=== PATIENT | female | born 1970 | race Caucasian/White ===

== ENCOUNTER 2019-06-02 16:28 | Outpatient (CLI) | END 2019-06-02 16:44 | disposition short-term general hospital (02) | LOC: AMBL 16:28 | PROVIDERS: ATTEND Emergency Medicine | DX: F41.9 Anxiety disorder, unspecified (principal); M25.511 Pain in right shoulder; M79.601 Pain in right arm ==

== ENCOUNTER 2021-07-05 17:17 | Inpatient (IN) ==
[2021-07-05] MEDS ORDERED: ZOFRAN 4 MG/2 ML IVP ONE (17:48)
[2021-07-05] MEDS ORDERED: SODIUM CHLORIDE 1,000 ML IV STA ×2 (17:48→18:45)
[2021-07-05] MEDS ORDERED: TORADOL IVP STA (17:48)
--- NOTE | 2021-07-05 17:54 | ED.PDOC ---
General ED Provider: Dr. JAY JAY OVERTON MD Chief Complaint: Nausea/Vomiting Stated Complaint: mild to mod off and on NV for 2 days, diffuse nonrad abdominal cramps, no fever, no injury, recently finished covid quarantine Time Seen by Provider: 07/05/21 17:38 Mode of Arrival: Walk-In Information Source: Patient Primary Care Provider: CHELSY SADLER MD Nursing and Triage Documentation Reviewed and Agree: Yes Does patient meet sepsis criteria?: No System Inflammatory Response Syndrome: Not Applicable Sepsis Protocol: For patient's 13 years and over: Temp is 96.8 and below OR 101 and greater Pulse >90 BPM Resp >20/minute Acutely Altered Mental Status Are patient's symptoms suggestive of a new infection, such as: -Pneumonia -Skin, Soft Tissue -Endocarditis -UTI -Bone, Joint Infection -Implantable Device -Acute Abdominal Infection -Wound Infection -Meningitis -Blood Stream Catheter Infection -Unknown Review of Systems Review Of Systems Constitutional: Reports Malaise; Denies Fever Eyes: Denies Vision change Ears, Nose, Mouth, Throat: Denies Throat pain Respiratory: Denies Cough or Short of air Cardiac: Denies Chest pain GI: Reports Abdominal pain and Vomiting : Denies Frequency Musculoskeletal: Denies Neck pain Skin: Denies Rash Neurological: Denies Cognitive dysfunction or Headache All Other Systems: Other [facility] Medical History Abscess of right axilla Anemia Anxiety Anxiety Arthritis Bilateral carpal tunnel syndrome Chronic headaches Depression Diabetes mellitus Diabetes type 2, uncontrolled Edema Hyperlipidemia Hypertension Hypertriglyceridemia Hypothyroidism Immunization refused Irritation of right eye Neuropathic pain of both feet Non-compliant patient Restless legs syndrome Sleep apnea Thyroid disorder Family History Mother Age: 73 Diabetes Cardiac disease Hyperlipidemia Hypothyroidism Hypertension BROTHER No problems noted. BROTHER Age: 52 No problems noted. 19 CHILD Age: 19 No problems noted. Social History Smoking and tobacco status: Former smoker Second hand smoke exposure: Yes Alcohol intake: never Substance use type: does not use Miladys/shinto: none Special miladys needs: No Agree to transfusion: Yes Adopted: No Caregiver/support person: No Foster care: No Household members: children Housing: house Lives independently: Yes Highest education level completed: high school graduate Financial difficulty paying for basics: not applicable service: No half-way: No Current occupational status: unemployed Current occupational exposures/hazards: No Pets and animals: Yes Leisure activites: music and reading History of recent travel: No Sexually active: No Do you think of yourself as: straight/heterosexual Current gender identity: female Seatbelt use: always Helmet use: No (N/A) Drives intoxicated or rides with intoxicated drive away driver: No Water heater temperature set < 120 degrees: Yes Working smoke detector in home: Yes Fire extinguisher in home: Yes Carbon monoxide detector in home: Yes Firearms in home: No Surgical History History of musculoskeletal system surgery History of surgery History of tubal ligation Status post cholecystectomy Status post thyroidectomy Female Reproductive History Menstrual Hx Hysterectomy: No Hx Tubal Ligation: No Physical Exam Physical Exam Appearance: Reports Well-appearing Ill-appearing: Not Applicable Pain Distress: Mild Eyes: Reports BIRD, EOMI and Conjunctiva clear ENT: Reports Oropharynx normal Neck: Supple Respiratory: Reports Airway patent, Breath sounds clear and Breath sounds equal Cardiovascular: Reports RRR GI/: Reports Soft and Tender (no rebound) Musculoskeletal: Reports Normal strength, ROM intact and No edema Skin: Reports Warm and Dry Neurological: Reports Alert and Oriented Psychiatric: Reports Affect appropriate Critical Care Note Critical Care Note Total Critical Care Time (mins): 0 Course Course Hematology/Chemistry: 07/05/21 18:20 Orders, Labs, Meds: Lab Review 07/05/21 07/05/21 07/05/21 18:20 18:20 18:40 WBC 8.18 RBC 4.23 Hgb 11.5 L Hct 37.2 MCV 87.9 MCH 27.2 MCHC 30.9 L RDW Coeff of Logan 14.9 H Plt Count 429 Immature Gran % (Auto) 1.2 Neut % (Auto) 66.5 Lymph % (Auto) 26.5 [place] % (Auto) 4.9 Eos % (Auto) 0.5 Baso % (Auto) 0.4 Neut # (Auto) 5.4 Lymph # (Auto) 2.2 [place] # (Auto) 0.4 Eos # (Auto) 0.0 Baso # (Auto) 0.0 Immature Gran # (Auto) 0.1 Lactic Acid 6.54 H Urine Color Yellow Urine Clarity Cloudy Urine pH 5.5 Ur Specific [place] 1.010 Urine Protein Negative Urine Glucose (UA) 2+ H Urine Ketones Negative Urine Blood Trace-lysed Urine Nitrite Negative Urine Bilirubin Negative Urine Urobilinogen 0.2 Ur Leukocyte Esterase Negative Urine Microscopic RBC 5-10 Urine Microscopic WBC 2-5 Ur Squamous Epith Cells 20-30 Urine Bacteria 2+ Orders Category Date Time Status EKG-(ED ONLY) Stat CARDIO 07/05/21 17:48 Completed CBC W/ AUTO DIFF Stat LAB 07/05/21 18:20 Completed COMPREHENSIVE METABOLIC PANEL Stat LAB 07/05/21 18:20 Received LACTIC ACID Stat LAB 07/05/21 18:20 Completed TROPONIN I Stat LAB 07/05/21 18:20 Received URINALYSIS C & S IF INDICATED Stat LAB 07/05/21 18:40 Completed Ketorolac Tromethamine [Toradol] MEDS 07/05/21 17:48 Discontinued 30 mg IVP ONCE STA Ondansetron HCl/Pf [Zofran 4 mg/2 ml] MEDS 07/05/21 17:48 Discontinued 4 mg IVP ONCE ONE Sodium Chloride 0.9% [Sodium Chloride] 1,000 ml MEDS 07/05/21 17:48 Discontin ued IV BOLUS Sodium Chloride 0.9% [Sodium Chloride] 1,000 ml MEDS 07/05/21 18:45 Active IV BOLUS CHEST, 1V AP ONLY Stat RADS 07/05/21 17:[address] ABDOMEN/PELVIS WO CONTRAST Stat RADS 07/05/21 17:48 Completed Medications Generic Name Dose Route Start Last Admin Trade Name Freq PRN Reason Stop Dose Admin Sodium Chloride 1,000 mls @ 1,000 mls/hr 07/05/21 18:45 Sodium Chloride IV 07/05/21 19:44 BOLUS STA Discontinued Medications Generic Name Dose Route Start Last Admin Trade Name Freq PRN Reason Stop Dose Admin Sodium Chloride 1,000 mls @ 1,000 mls/hr 07/05/21 17:48 07/05/21 18:22 Sodium Chloride IV 07/05/21 18:47 1,000 mls/hr BOLUS STA Administration Ketorolac Tromethamine 30 mg 07/05/21 17:48 07/05/21 18:22 Ketorolac Tromethamine 30 Mg/Ml Vial IVP 07/05/21 17:49 30 mg ONCE STA Administration Ondansetron HCl 4 mg 07/05/21 17:48 07/05/21 18:22 Ondansetron Hcl/Pf 4 Mg/2 Ml Sdv IVP 07/05/21 17:49 4 mg ONCE ONE Administration Vital Signs: Temp Pulse Resp BP Pulse Ox 07/05/21 17:18 96.9 F L 94 H 16 110/74 96 Discharge Plan Discharge Prescriptions: No Action (DME) blood-glucose meter Kit 1 [facility] 1-4XD Qty: 1 RF: 0 pen needle, diabetic [TRUEplus Pen Needle] 31 gauge x 3/16" needle See Rx Instructions .ROUTE .COMPLEX Qty: 100 RF: 0 ferrous sulfate 325 mg (65 mg iron) tablet See Rx Instructions .ROUTE .COMPLEX Qty: 30 RF: 0 Lantus U-100 Insulin 100 unit/mL solution See Rx Instructions .ROUTE .COMPLEX Qty: 20 RF: 0 insulin lispro [Humalog U-100 Insulin] 100 unit/mL solution See Rx Instructions .ROUTE .COMPLEX Qty: 10 RF: 3 insulin syringe-needle U-100 [BD Insulin Syringe Ultra-Fine] 1 mL 31 gauge x 5/16 syringe See Rx Instructions .ROUTE .COMPLEX Qty: 100 RF: 0 (DME) lancets 33 gauge misc 1 [facility] TID Qty: 100 RF: 0 (DME) Blood Glucose Test Strip 1 [facility] TID Qty: 120 RF: 0 gabapentin 300 mg capsule 300 mg PO BID Qty: 60 RF: 0 levothyroxine 175 mcg tablet 175 mcg PO DAILY RF: 0 atorvastatin 80 mg tablet 80 mg PO DAILY RF: 0 metformin 1,000 mg tablet 1,000 mg PO BID RF: 0 lisinopril 10 mg tablet 10 mg PO BID RF: 0 metoprolol tartrate 50 mg tablet 50 mg PO BID RF: 0 duloxetine 30 mg capsule,delayed release(DR/EC) 30 mg PO DAILY RF: 0 ibuprofen 800 mg tablet 800 mg PO Q8H Qty: 20 RF: 0 omeprazole magnesium [Prilosec OTC] 20 mg tablet,delayed release (DR/EC) 20 mg PO BID Qty: 20 RF: 0 polyethylene glycol 3350 [Miralax] 17 gram/dose powder 17 gm PO QDAY PRN (Reason: constipation) Qty: 119 RF: 0 (DME) blood-glucose meter Misc See Rx Instructions .ROUTE .MEDSUPPLY Qty: 1 RF: 0 aripiprazole [Abilify] 5 mg tablet 5 mg PO QDAY Qty: 30 RF: 1 ondansetron HCl [Zofran] 4 mg tablet 4 mg PO Q8H Qty: 20 RF: 0 ED Provider: JAY JAY OVERTON Physician Progress Note: []care to Dr Hinojosa at 19:00
--- NOTE | 2021-07-05 18:18 | CT ---
EXAM: CT of the abdomen and pelvis without contrast History: Weakness and vomiting. Comparison: CT abdomen pelvis 06/25/2021 Technique: Multiplanar CT images through the abdomen pelvis were obtained without the administration of IV contrast Findings: Bilateral lung infiltrates not significantly changed. No acute osseous abnormalities. St able chronic T12 compression fracture. Status post cholecystectomy. No liver or splenic lesions. The liver is mildly enlarged. No peripan creatic inflammation. Adrenal glands are unremarkable. No renal stones and no hydronephrosis. Prev ious appendectomy. No bowel obstruction. No free air and no ascites. No bladder wall thickening. The uterus is not enlarged. No perirectal inflammation. No lymphadenopathy. Impression: 1. No acute intra-abdominal or pelvic process. 2. Bilateral pneumonia not significantly changed compared to the prior study All CT scans are performed using dose optimization techniques as appropriate to the performed exam an d include at least one of the following: Automated exposure control, adjustment of the mA and/or kV according t o size, and the use of iterative reconstruction technique.
--- NOTE | 2021-07-05 18:18 | DI ---
EXAM: Single view of the chest. History: Weakness. Comparison: Chest radiograph 06/25/2021 Findings: Heart size is normal. Patchy bilateral lung infiltrates not significantly changed. No pl eural fluid and no pneumothorax. No acute osseous abnormalities. Impression: Bilateral pneumonia not significantly changed
[2021-07-05 18:22] LABS: BASOPHILS % (AUTO) 0.4 % (0.0-3.0); EOSINOPHILS % (AUTO) 0.5 % (0.0-7.0); HEMATOCRIT 37.2 % (37.0-47.0); HEMOGLOBIN 11.5 g/dl (12.0-16.0); IMMATURE GRANULOCYTE # (AUTO) 0.1 (0.0-1.0); IMMATURE GRANULOCYTE % (AUTO) 1.2 % (0.0-5.0); LYMPHOCYTES # (AUTO) 2.2 K/uL (0.60-3.4); LYMPHOCYTES % (AUTO) 26.5 (10.0-50.0); MEAN CORPUSCULAR HEMOGLOBIN 27.2 pg (27.0-31.0); MEAN CORPUSCULAR HGB CONC 30.9 (31.8-35.4); MEAN CORPUSCULAR VOLUME 87.9 fl (81.0-99.0); MONOCYTES # (AUTO) 0.4 K/uL (0.4-2.0); MONOCYTES % (AUTO) 4.9 (0-10); NEUTROPHILS # (AUTO) 5.4 K/ul (2.0-6.9); NEUTROPHILS % (AUTO) 66.5 % (42.2-75.2); PLATELET COUNT 429 10^3/uL (140-440); RDW COEFFICIENT OF VARIATION 14.9 % (11.6-14.8); RED BLOOD COUNT 4.23 10^6/ul (4.20-5.40); WHITE BLOOD COUNT 8.18 K/ul (4.6-10.2)
[2021-07-05 18:40] LABS: ALBUMIN 4.21 g/dL (3.5-5.0); ALKALINE PHOSPHATASE 153.1 U/L (38-126); BILIRUBIN,TOTAL 0.35 mg/dL (0.2-1.3); BLOOD UREA NITROGEN 26.1 mg/dL (7-17); CALCIUM 9.54 mg/dL (8.4-10.2); CARBON DIOXIDE 16.7 mmol/L (22-30.0); CHLORIDE 91.9 mmol/L (98-107); CREATININE 1.34 mg/dL (0.60-1.30); POTASSIUM 4.53 mmol/L (3.5-5.1); SODIUM 126.2 mmol/L (134.5-145); TOTAL PROTEIN 7.76 g/dL (6.3-8.2)
[2021-07-05 18:43] LABS: BILIRUBIN,URINE Negative (NEGATIVE); CLARITY,URINE Cloudy (CLEAR); COLOR,URINE Yellow (YELLOW); GLUCOSE, URINE (UA) 2+ (NEGATIVE); KETONES,URINE Negative (NEGATIVE); LEUKOCYTE ESTERASE ,URINE Negative (NEGATIVE); NITRITE,URINE Negative (NEGATIVE); PH,URINE 5.5 (5-9); PROTEIN,URINE Negative (NEGATIVE); URINE, BLOOD Trace-lysed (NEGATIVE); UROBILINOGEN,URINE 0.2 (0.2)
[2021-07-05 18:46] LABS: BACTERIA,URINE 2+ (NOT PRESENT); SQUAMOUS EPITHELIAL CELL,UR 20-30 (0-5)
[2021-07-05 18:47] LABS: ALANINE AMINOTRANSFERASE 20.8 U/L (0-35)
[2021-07-05 19:08] LABS: GLUCOSE 819.7 mg/dL (74-106); TROPONIN I < 0.012 ng/ml (0.0000-0.120)
[2021-07-05] MEDS ORDERED: HUMULIN R IV ONE (19:17)
[2021-07-05 19:29] LABS: BORDETELLA PARAPERTUSSIS (PCR) NOT DETECTED (NOT DETECT); BORDETELLA PERTUSSIS (PCR) NOT DETECTED (NOT DETECT); CHLAMYDIA PNEUMONIAE (PCR) NOT DETECTED (NOT DETECT); CORONAVIRUS 229E (PCR) NOT DETECTED (NOT DETECT); CORONAVIRUS HKU1 (PCR) NOT DETECTED (NOT DETECT); CORONAVIRUS NL63 (PCR) NOT DETECTED (NOT DETECT); CORONAVIRUS OC43 (PCR) NOT DETECTED (NOT DETECT); HUMAN METAPNEUMOVIRUS (PCR) NOT DETECTED (NOT DETECT); HUMAN RHINOVIRUS/ENTEROV (PCR) NOT DETECTED (NOT DETECT); INFLUENZA B (PCR) NOT DETECTED (NOT DETECT); MYCOPLASMA PNEUMONIAE (PCR) NOT DETECTED (NOT DETECT); PARAINFLUENZA VIRUS 1 (PCR) NOT DETECTED (NOT DETECT); PARAINFLUENZA VIRUS 2 (PCR) NOT DETECTED (NOT DETECT); PARAINFLUENZA VIRUS 3 (PCR) NOT DETECTED (NOT DETECT); PARAINFLUENZA VIRUS 4 (PCR) NOT DETECTED (NOT DETECT); RESPIRATORY SYNCYTIAL V (PCR) NOT DETECTED (NOT DETECT)
[2021-07-05 20:11] LABS: ADENOVIRUS (PCR) NOT DETECTED (NOT DETECT); SARS_COV_2 (PCR) DETECTED (NOT DETECT)
[2021-07-05 20:46] LABS: BLOOD UREA NITROGEN 25.8 mg/dL (7-17); CALCIUM 10.01 mg/dL (8.4-10.2); CARBON DIOXIDE 19.2 mmol/L (22-30.0); CREATININE 1.25 mg/dL (0.60-1.30); GLUCOSE 485.9 mg/dL (74-106); POTASSIUM 4.23 mmol/L (3.5-5.1); SODIUM 131.8 mmol/L (134.5-145)
[2021-07-05] MEDS ORDERED: HUMULIN R IVP STA (21:00)
--- NOTE | 2021-07-05 21:58 | ED.PDOC ---
General ED Provider: Dr. PILLO CABELLO Chief Complaint: Nausea/Vomiting Stated Complaint: Nausea and vomiting, crampy pain, ill a few days, diabetic, out of insulin, recovering from COVID (day 10) Time Seen by Provider: 07/05/21 17:38 Mode of Arrival: Walk-In Information Source: Patient Exam Limitations: No limitations Primary Care Provider: CHELSY SADLER MD Nursing and Triage Documentation Reviewed and Agree: Yes Does patient meet sepsis criteria?: No System Inflammatory Response Syndrome: Not Applicable Sepsis Protocol: For patient's 13 years and over: Temp is 96.8 and below OR 101 and greater Pulse >90 BPM Resp >20/minute Acutely Altered Mental Status Are patient's symptoms suggestive of a new infection, such as: -Pneumonia -Skin, Soft Tissue -Endocarditis -UTI -Bone, Joint Infection -Implantable Device -Acute Abdominal Infection -Wound Infection -Meningitis -Blood Stream Catheter Infection -Unknown GI Complaint Exam Vomiting/Diarrhea Complaint/Exam Onset/Duration: Few days, diabetic, out of insulin, COVID sx for 2 weeks, day 10 today Symptoms Are: Still present Episodes of Vomiting over last 24 Hours: 10 Episodes of Diarrhea Over Last 24 Hours: 0 Initial Severity: Moderate Current Severity: Moderate Character of Vomiting: Reports Non-bilious Aggravating: Reports Food Alleviating: Reports None Associated Signs and Symptoms: Reports Light-headedness and Cramping; Denies Dizziness, Melena, Hematemesis, Fever or Abdominal pain Related History: Denies Recent antibiotics Last Oral Intake: tried today Last Bowel Movement: today Recent Positive Test: No Non-GI Risk Factors: Reports None Surgical Obstruction Risk Factors: Reports None Related Surgical History: Reports Cholecystectomy Abdominal Findings: Present Other (generalized cramping) Kussmaul Respirations Present: No Differential Diagnoses: Viral Gastroenteritis, Pancreatitis and Other (uncontrolled diabetes) Review of Systems Review Of Systems Constitutional: Reports Malaise, Weakness and Loss of appetite Eyes: Reports No symptoms Ears, Nose, Mouth, Throat: Reports No symptoms Respiratory: Reports Cough Cardiac: Reports No symptoms GI: Reports Nausea, Poor appetite and Vomiting : Reports No symptoms Musculoskeletal: Reports No symptoms Skin: Reports No symptoms Neurological: Reports No symptoms Endocrine: Reports No symptoms Hematologic/Lymphatic: Reports No symptoms All Other Systems: Reviewed and Negative [facility] Medical History Abscess of right axilla Anemia Anxiety Anxiety Arthritis Bilateral carpal tunnel syndrome Chronic headaches Depression Diabetes mellitus Diabetes type 2, uncontrolled Edema Hyperlipidemia Hypertension Hypertriglyceridemia Hypothyroidism Immunization refused Irritation of right eye Neuropathic pain of both feet Non-compliant patient Restless legs syndrome Sleep apnea Thyroid disorder Family History (Updated 07/05/21 @ 22:20 by BROOKE ROCHA RN) Mother Age: 73 Diabetes Cardiac disease Hyperlipidemia Hypothyroidism Hypertension COVID-19 BROTHER No problems noted. BROTHER Age: 52 No problems noted. 19 CHILD Age: 19 No problems noted. Social History Smoking and tobacco status: Former smoker Second hand smoke exposure: Yes Alcohol intake: never Substance use type: does not use Miladys/restorationism: none Special miladys needs: No Agree to transfusion: Yes Adopted: No Caregiver/support person: No Foster care: No Household members: children Housing: house Lives independently: Yes Highest education level completed: high school graduate Financial difficulty paying for basics: not applicable service: No custodial: No Current occupational status: unemployed Current occupational exposures/hazards: No Pets and animals: Yes Leisure activites: music and reading History of recent travel: No Sexually active: No Do you think of yourself as: straight/heterosexual Current gender identity: female Seatbelt use: always Helmet use: No (N/A) Drives intoxicated or rides with intoxicated backhaul driver: No Water heater temperature set < 120 degrees: Yes Working smoke detector in home: Yes Fire extinguisher in home: Yes Carbon monoxide detector in home: Yes Firearms in home: No Surgical History History of musculoskeletal system surgery History of surgery History of tubal ligation Status post cholecystectomy Status post thyroidectomy Female Reproductive History Menstrual Hx Hysterectomy: No Hx Tubal Ligation: No Physical Exam Physical Exam Appearance: Reports Ill-appearing and Obese Ill-appearing: Moderate Pain Distress: None Eyes: Reports BIRD ENT: Reports Oropharynx normal Neck: Supple Respiratory: Reports Airway patent, Breath sounds clear and Breath sounds equal Cardiovascular: Reports RRR and Pulses normal GI/: Reports Soft, Bowel sounds normal and Other (generalized cramping); Denies Tender or Mass Musculoskeletal: Reports Normal strength and Other (partial amputation right foot) Skin: Reports Warm and Dry Neurological: Reports Sensation intact, Motor intact and Alert Psychiatric: Reports Affect appropriate and Mood appropriate Interpretation Radiology Interpretation Radiology Interpretation By: Radiologist Radiology Results: Positive Exam Interpreted: CXR Xray Comments: COVID pneumonia, previously documented Radiology Interpretation By: Radiologist Exam Interpreted: CT Scan Xray Comments: CT A/P - no acute findings, COVID pneumonia noted Physician Notification Case Discussed Physician Notified: Dr. Gannon Time of Notification: 21:00 Comments: This patient has been discharged from his practice due to noncompliance. Critical Care Note Critical Care Note Total Critical Care Time (mins): 30 Comments: Uncontrolled blood sugar and dehydration causing acute kidney injury. Course Course Hematology/Chemistry: 07/05/21 18:20 07/05/21 20:29 Orders, Labs, Meds: Lab Review 07/05/21 07/05/21 07/05/21 18:20 18:20 18:20 WBC 8.18 RBC 4.23 Hgb 11.5 L Hct 37.2 MCV 87.9 MCH 27.2 MCHC 30.9 L RDW Coeff of Logan 14.9 H Plt Count 429 Immature Gran % (Auto) 1.2 Neut % (Auto) 66.5 Lymph % (Auto) 26.5 [place] % (Auto) 4.9 Eos % (Auto) 0.5 Baso % (Auto) 0.4 Neut # (Auto) 5.4 Lymph # (Auto) 2.2 [place] # (Auto) 0.4 Eos # (Auto) 0.0 Baso # (Auto) 0.0 Immature Gran # (Auto) 0.1 Sodium 126.2 L Potassium 4.53 Chloride 91.9 L Carbon Dioxide 16.7 L Anion Gap 22.13 BUN 26.1 H Creatinine 1.34 H Estimated GFR (MDRD) 42.00 BUN/Creatinine Ratio 19.47 Glucose 819.7 H* Lactic Acid 6.54 H Calcium 9.54 Total Bilirubin 0.35 AST 35.0 ALT 20.8 Alkaline Phosphatase 153.1 H Troponin I < 0.012 Total Protein 7.76 Albumin 4.21 Globulin 3.55 Albumin/Globulin Ratio 1.18 Urine Color Urine Clarity Urine pH Ur Specific [place] Urine Protein Urine Glucose (UA) Urine Ketones Urine Blood Urine Nitrite Urine Bilirubin Urine Urobilinogen Ur Leukocyte Esterase Urine Microscopic RBC Urine Microscopic WBC Ur Squamous Epith Cells Urine Bacteria Adenovirus (PCR) B. pertussis DNA (PCR) B.parapertussis DNA PCR C. pneumoniae DNA (PCR) Coronavirus OC43 (PCR) Coronavirus HKU1 (PCR) Coronavirus 229E (PCR) Coronavirus NL63 (PCR) Human Metapneumovir PCR Influenza Type A (PCR) Influenza B (RT-PCR) M. pneumoniae (PCR) Parainfluenza 1 (PCR) Parainfluenza 2 (PCR) Parainfluenza 3 (PCR) Parainfluenza 4 (PCR) RSV (PCR) Entero/Rhino (PCR) SARS-CoV-2 (PCR) 07/05/21 07/05/21 07/05/21 18:40 19:20 20:29 WBC RBC Hgb Hct MCV MCH MCHC RDW Coeff of Logan Plt Count Immature Gran % (Auto) Neut % (Auto) Lymph % (Auto) [place] % (Auto) Eos % (Auto) Baso % (Auto) Neut # (Auto) Lymph # (Auto) [place] # (Auto) Eos # (Auto) Baso # (Auto) Immature Gran # (Auto) Sodium 131.8 L Potassium 4.23 Chloride 98.0 Carbon Dioxide 19.2 L Anion Gap 18.83 BUN 25.8 H Creatinine 1.25 Estimated GFR (MDRD) 45.00 BUN/Creatinine Ratio 20.64 Glucose 485.9 H D Lactic Acid Calcium 10.01 Total Bilirubin AST ALT Alkaline Phosphatase Troponin I Total Protein Albumin Globulin Albumin/Globulin Ratio Urine Color Yellow Urine Clarity Cloudy Urine pH 5.5 Ur Specific [place] 1.010 Urine Protein Negative Urine Glucose (UA) 2+ H Urine Ketones Negative Urine Blood Trace-lysed Urine Nitrite Negative Urine Bilirubin Negative Urine Urobilinogen 0.2 Ur Leukocyte Esterase Negative Urine Microscopic RBC 5-10 Urine Microscopic WBC 2-5 Ur Squamous Epith Cells 20-30 Urine Bacteria 2+ Adenovirus (PCR) Not detected B. pertussis DNA (PCR) Not detected B.parapertussis DNA PCR Not detected C. pneumoniae DNA (PCR) Not detected Coronavirus OC43 (PCR) Not detected Coronavirus HKU1 (PCR) Not detected Coronavirus 229E (PCR) Not detected Coronavirus NL63 (PCR) Not detected Human Metapneumovir PCR Not detected Influenza Type A (PCR) Not detected Influenza B (RT-PCR) Not detected M. pneumoniae (PCR) Not detected Parainfluenza 1 (PCR) Not detected Parainfluenza 2 (PCR) Not detected Parainfluenza 3 (PCR) Not detected Parainfluenza 4 (PCR) Not detected RSV (PCR) Not detected Entero/Rhino (PCR) Not detected SARS-CoV-2 (PCR) Detected H 07/05/21 20:29 WBC RBC Hgb Hct MCV MCH MCHC RDW Coeff of [place] Plt Count Immature Gran % (Auto) Neut % (Auto) Lymph % (Auto) [place] % (Auto) Eos % (Auto) Baso % (Auto) Neut # (Auto) Lymph # (Auto) [place] # (Auto) Eos # (Auto) Baso # (Auto) Immature Gran # (Auto) Sodium Potassium Chloride Carbon Dioxide Anion Gap BUN Creatinine Estimated GFR (MDRD) BUN/Creatinine Ratio Glucose Lactic Acid 4.19 H D Calcium Total Bilirubin AST ALT Alkaline Phosphatase Troponin I Total Protein Albumin Globulin Albumin/Globulin Ratio Urine Color Urine Clarity Urine pH Ur Specific [place] Urine Protein Urine Glucose (UA) Urine Ketones Urine Blood Urine Nitrite Urine Bilirubin Urine Urobilinogen Ur Leukocyte Esterase Urine Microscopic RBC Urine Microscopic WBC Ur Squamous Epith Cells Urine Bacteria Adenovirus (PCR) B. pertussis DNA (PCR) B.parapertussis DNA PCR C. pneumoniae DNA (PCR) Coronavirus OC43 (PCR) Coronavirus HKU1 (PCR) Coronavirus 229E (PCR) Coronavirus NL63 (PCR) Human Metapneumovir PCR Influenza Type A (PCR) Influenza B (RT-PCR) M. pneumoniae (PCR) Parainfluenza 1 (PCR) Parainfluenza 2 (PCR) Parainfluenza 3 (PCR) Parainfluenza 4 (PCR) RSV (PCR) Entero/Rhino (PCR) SARS-CoV-2 (PCR) Orders Category Date Time Status ADMIT PATIENT INPATIENT .TO MEDSURG (NON-MONITORED ADMISSION 07/05/21 21:05 Active BED) EKG-(ED ONLY) Stat CARDIO 07/05/21 17:48 Completed BASIC METABOLIC PANEL Stat LAB 07/05/21 20:29 Completed CBC W/ AUTO DIFF Stat LAB 07/05/21 18:20 Completed COMPREHENSIVE METABOLIC PANEL Stat LAB 07/05/21 18:20 Completed LACTIC ACID Stat LAB 07/05/21 18:20 Completed LACTIC ACID Stat LAB 07/05/21 20:29 Completed RESPIRATORY PANEL 2.1 (PCR) Stat LAB 07/05/21 19:20 Completed TROPONIN I Stat LAB 07/05/21 18:20 Completed URINALYSIS C & S IF INDICATED Stat LAB 07/05/21 18:40 Completed URINE CULTURE Stat LAB 07/05/21 18:40 Received Insulin Regular, Human [Humulin R] MEDS 07/05/21 19:17 Discontinued 20 unit IV ONCE ONE Insulin Regular, Human [Humulin R] MEDS 07/05/21 21:00 Discontinued 20 unit IVP ONCE STA Ketorolac Tromethamine [Toradol] MEDS 07/05/21 17:48 Discontinued 30 mg IVP ONCE STA Ondansetron HCl/Pf [Zofran 4 mg/2 ml] MEDS 07/05/21 17:48 Discontinued 4 mg IVP ONCE ONE Sodium Chloride 0.9% [Sodium Chloride] 1,000 ml MEDS 07/05/21 17:48 Discontinued IV BOLUS Sodium Chloride 0.9% [Sodium Chloride] 1,000 ml MEDS 07/05/21 18:45 Discontinued IV BOLUS CHEST, 1V AP ONLY Stat RADS 07/05/21 17:[address] ABDOMEN/PELVIS WO CONTRAST Stat RADS 07/05/21 17:48 Completed Medications Generic Name Dose Route Start Last Admin Trade Name Freq PRN Reason Stop Dose Admin Aripiprazole 5 mg 07/05/21 21:30 07/05/21 22:15 Aripiprazole 5 Mg Tablet PO 5 mg DAILY [facility] Administration Atorvastatin Calcium 80 mg 07/06/21 09:00 Atorvastatin Calcium 20 Mg Tablet PO DAILY DARYA Duloxetine HCl 30 mg 07/06/21 09:00 Duloxetine Hcl 30 Mg Capsule.Dr PO DAILY [facility] Enoxaparin Sodium 40 mg 07/06/21 09:00 Enoxaparin Sodium 40 Mg/0.4 Ml Syr SUBCUT DAILY [facility] Gabapentin 300 mg 07/06/21 09:00 Gabapentin 300 Mg Capsule PO BID [facility] Sodium Chloride 1,000 mls @ 150 mls/hr 07/05/21 21:30 07/05/21 22:14 Sodium Chloride IV 150 mls/hr .[id number] [facility] Administration Insulin Glargine 40 unit 07/06/21 09:00 Insulin Glargine,Hum.Rec.Anlog 100 Units/Ml SUBCUT DAILY [facility] Insulin Human Regular 0 unit 07/05/21 21:53 07/05/21 22:15 Insulin Regular, Human 100 Unit/Ml (3ml) Vial SUBCUT 6 unit PRN PRN Administration Hyperglycemia Protocol Levothyroxine Sodium 100 mcg 07/06/21 09:00 Levothyroxine Sodium 100 Mcg Tablet PO QAM DARYA Levothyroxine Sodium 75 mcg 07/06/21 09:00 Levothyroxine Sodium 75 Mcg Tablet PO QAM DARYA Lisinopril 10 mg 07/06/21 09:00 Lisinopril 10 Mg Tablet PO BID DARYA Metoprolol Tartrate 50 mg 07/06/21 09:00 Metoprolol Tartrate 50 Mg Tablet PO BID DARYA Omeprazole 20 mg 07/06/21 09:00 Omeprazole 20 Mg Capsule.Dr PO BID DARYA Discontinued Medications Generic Name Dose Route Start Last Admin Trade Name Freq PRN Reason Stop Dose Admin Sodium Chloride 1,000 mls @ 1,000 mls/hr 07/05/21 17:48 07/05/21 18:22 Sodium Chloride IV 07/05/21 18:47 1,000 mls/hr BOLUS STA Administration Sodium Chloride 1,000 mls @ 1,000 mls/hr 07/05/21 18:45 07/05/21 19:28 Sodium Chloride IV 07/05/21 19:44 1,000 mls/hr BOLUS STA Administration Insulin Human Regular 20 unit 07/05/21 19:17 07/05/21 19:28 Insulin Regular, Human 100 Unit/Ml (3ml) Vial IV 07/05/21 19:18 20 unit ONCE ONE Administration Insulin Human Regular 20 unit 07/05/21 21:00 07/05/21 21:04 Insulin Regular, Human 100 Unit/Ml (3ml) Vial IVP 07/05/21 21:01 20 unit ONCE STA Administration Ketorolac Tromethamine 30 mg 07/05/21 17:48 07/05/21 18:22 Ketorolac Tromethamine 30 Mg/Ml Vial IVP 07/05/21 17:49 30 mg ONCE STA Administration Non-Formulary Medication 175 mcg 07/06/21 09:00 Levothyroxine PO DAILY DARYA Ondansetron HCl 4 mg 07/05/21 17:48 07/05/21 18:22 Ondansetron Hcl/Pf 4 Mg/2 Ml Sdv IVP 07/05/21 17:49 4 mg ONCE ONE Administration Vital Signs: Temp Pulse Resp BP Pulse Ox 07/05/21 19:31 78 20 153/90 H 99 07/05/21 17:18 96.9 F L 94 H 16 110/74 96 Discharge Plan Discharge Patient Disposition: ADMITTED INPATIENT Discharge Problem: Diabetes mellitus, Hypertriglyceridemia ED Provider: PILLO CABELLO Condition: Stable Physician Progress Note: Blood sugar gradually lowered with IV insulin and IVF. Volume depletion noted, this caused the elevated lactate level and the LEWIS (not severe). Still some COVID pneumonia on CXR, but she is out of the quarantine phase, oxygen sat 99 % RA. Blood sugar and lactate both decreasing, admit. She says she will see Dr. Dunaway after d/c.[]
[2021-07-05] MEDS: SODIUM CHLORIDE 1,000 ML IV SCH (22:14)
[2021-07-05] MEDS: HUMULIN R SUBCUT PRN (22:15)
[2021-07-05] MEDS: ABILIFY PO SCH (22:15)
[2021-07-05 22:17] VITALS: BMI 37.5
[2021-07-05 22:26] LABS: BILIRUBIN,URINE Negative (NEGATIVE); CLARITY,URINE Clear (CLEAR); COLOR,URINE Yellow (YELLOW); GLUCOSE, URINE (UA) 2+ (NEGATIVE); KETONES,URINE Negative (NEGATIVE); LEUKOCYTE ESTERASE ,URINE Negative (NEGATIVE); NITRITE,URINE Negative (NEGATIVE); PROTEIN,URINE Negative (NEGATIVE); URINE, BLOOD Trace-intact (NEGATIVE); UROBILINOGEN,URINE 0.2 (0.2)
[2021-07-05 22:33] LABS: BACTERIA,URINE TRACE (NOT PRESENT); YEAST,URINE TRACE (NOT PRESENT)
[2021-07-06] MEDS: SODIUM CHLORIDE 1,000 ML IV SCH ×4 (04:49→22:41)
[2021-07-06] MEDS: HUMULIN R SUBCUT PRN ×4 (05:31→20:43)
[2021-07-06 05:34] LABS: BLOOD UREA NITROGEN 23.6 mg/dL (7-17); CALCIUM 9.11 mg/dL (8.4-10.2); CARBON DIOXIDE 24.3 mmol/L (22-30.0); CHLORIDE 102.7 mmol/L (98-107); CREATININE 1.14 mg/dL (0.60-1.30); POTASSIUM 4.04 mmol/L (3.5-5.1); SODIUM 135.1 mmol/L (134.5-145)
[2021-07-06] MEDS ORDERED: CYMBALTA PO SCH (09:00)
[2021-07-06] MEDS ORDERED: LANTUS SUBCUT SCH (09:00)
[2021-07-06] MEDS ORDERED: SYNTHROID PO SCH ×2 (09:00)
[2021-07-06] MEDS ORDERED: LOVENOX SUBCUT SCH (09:00)
[2021-07-06] MEDS ORDERED: LEVOTHYROXINE 175 MCG PO SCH (09:00)
[2021-07-06] MEDS ORDERED: LIPITOR PO SCH (09:00)
[2021-07-06] MEDS: NEURONTIN PO SCH ×2 (09:53→20:43)
[2021-07-06] MEDS: ABILIFY PO SCH (09:53)
[2021-07-06] MEDS: LOPRESSOR PO SCH ×2 (09:54→20:43)
[2021-07-06] MEDS: PRILOSEC PO SCH ×2 (09:56→20:43)
[2021-07-06] MEDS: ZESTRIL PO SCH ×2 (09:56→20:43)
--- NOTE | 2021-07-06 12:09 | PCM ---
Chief Complaint Chief Complaint: Weakness, cough, congestion and pos COVID 19 Infection History of Present Illness History of Present Illness: Hx Type II DM, poor controls and compliance issues. Has prev been on Lantus 70 u daily plus SS humulin Hs Restless Leg Syndrome with partial amputation Rt Foot.Hypothyroidism, hyperlipidemia peripheral neuropathy Allergies Allergies Allergy/AdvReac Type Severity Reaction Status Date / Time No Known Allergies Allergy Verified 07/05/21 17:28 [facility] Medical History Abscess of right axilla Anemia Anxiety Anxiety Arthritis Bilateral carpal tunnel syndrome Chronic headaches Depression Diabetes mellitus Diabetes type 2, uncontrolled Edema Hyperlipidemia Hypertension Hypertriglyceridemia Hypothyroidism Immunization refused Irritation of right eye Neuropathic pain of both feet Non-compliant patient Restless legs syndrome Sleep apnea Thyroid disorder Surgical History History of musculoskeletal system surgery History of surgery History of tubal ligation Status post cholecystectomy Status post thyroidectomy Family History (Updated 07/05/21 @ 22:20 by BROOKE ROCHA RN) Mother Age: 73 Diabetes Cardiac disease Hyperlipidemia Hypothyroidism Hypertension COVID-19 BROTHER No problems noted. BROTHER Age: 52 No problems noted. 19 CHILD Age: 19 No problems noted. Social History Smoking and tobacco status: Former smoker Second hand smoke exposure: Yes Alcohol intake: never Substance use type: does not use Miladys/lutheran: none Special miladys needs: No Agree to transfusion: Yes Adopted: No Caregiver/support person: No Foster care: No Household members: children Housing: house Lives independently: Yes Highest education level completed: high school graduate Financial difficulty paying for basics: not applicable service: No longterm: No Current occupational status: unemployed Current occupational exposures/hazards: No Pets and animals: Yes Leisure activites: music and reading History of recent travel: No Sexually active: No Do you think of yourself as: straight/heterosexual Current gender identity: female Seatbelt use: always Helmet use: No (N/A) Drives intoxicated or rides with intoxicated backhaul driver: No Water heater temperature set < 120 degrees: Yes Working smoke detector in home: Yes Fire extinguisher in home: Yes Carbon monoxide detector in home: Yes Firearms in home: No Medications Medications: Medications Generic Name Dose Route Start Last Admin Trade Name Frepatric PRN Reason Stop Dose Admin Aripiprazole 5 mg 07/05/21 21:30 07/06/21 09:53 Aripiprazole 5 Mg Tablet PO 5 mg DAILY DARYA Administration Atorvastatin Calcium 80 mg 07/06/21 09:00 10 09:53 Atorvastatin Calcium 20 Mg Tablet PO 80 mg DAILY DARYA Administration Duloxetine HCl 30 mg 07/06/21 09:00 07/06/21 09:54 Duloxetine Hcl 30 Mg Capsule. PO 30 mg DAILY DARYA Administration Enoxaparin Sodium 40 mg 07/06/21 09:00 07/06/21 09:52 Enoxaparin Sodium 40 Mg/0.4 Ml Syr SUBCUT 40 mg DAILY DARYA Administration Gabapentin 300 mg 07/06/21 09:00 07/06/21 09:53 Gabapentin 300 Mg Capsule PO 300 mg BID DARYA Administration Sodium Chloride 1,000 mls @ 150 mls/hr 07/05/21 21:30 07/06/21 11:13 Sodium Chloride IV 150 mls/hr .Q6H40M DARYA Administration Insulin Glargine 40 unit 07/06/21 09:00 07/06/21 09:52 Insulin Glargine,Hum.Rec.Anlog 100 Units/Ml SUBCUT 40 unit DAILY DARYA Administration Insulin Human Regular 0 unit 07/05/21 21:53 07/06/21 11:13 Insulin Regular, Human 100 Unit/Ml (3ml) Vial SUBCUT 8 unit PRN PRN Administration Hyperglycemia Protocol Levothyroxine Sodium 100 mcg 07/06/21 09:00 07/06/21 09:54 Levothyroxine Sodium 100 Mcg Tablet PO 100 mcg QAM DARYA Administration Levothyroxine Sodium 75 mcg 07/06/21 09:00 07/06/21 09:53 Levothyroxine Sodium 75 Mcg Tablet PO 75 mcg QAM DARYA Administration Lisinopril 10 mg 07/06/21 09:00 07/06/21 09:56 Lisinopril 10 Mg Tablet PO 10 mg BID DARYA Administration Metoprolol Tartrate 50 mg 07/06/21 09:00 07/06/21 09:54 Metoprolol Tartrate 50 Mg Tablet PO 50 mg BID DARYA Administration Omeprazole 20 mg 07/06/21 09:00 07/06/21 09:56 Omeprazole 20 Mg Capsule. PO 20 mg BID DARYA Administration Body Composition Height: 5 ft 4 in Weight: 218 lb 7 oz Body Mass Index (BMI): 37.5 Vital Signs Temperature: 98 F Pulse Rate: 71 Respiratory Rate: 13 Blood Pressure: 126/75 O2 Sat by Pulse Oximetry: 100 Physical Examination Appearance: Reports Ill-appearing and Obese Ill-appearing: Mild Pain Distress: Mild Eyes: Reports BIRD, EOMI and Conjunctiva clear ENT: Reports Ears normal and Nose normal Neck: Supple Respiratory: Reports Airway patent, Breath sounds clear and Breath sounds equal Cardiovascular: Reports RRR and Pulses normal GI/: Reports Soft, Nontender, No masses and Bowel sounds normal Musculoskeletal: Reports Normal strength and ROM intact Skin: Reports Warm, Dry and Normal color Neurological: Reports Motor intact, Cranial nerves intact, Alert and Oriented Psychiatric: Reports Affect appropriate, Mood appropriate and Anxious Lab/Tests/Diagnostic Imaging Lab/Tests/Diagnostic Imaging: Lab Review 07/05/21 07/05/21 07/05/21 18:20 18:20 18:20 WBC 8.18 RBC 4.23 Hgb 11.5 L Hct 37.2 MCV 87.9 MCH 27.2 MCHC 30.9 L RDW Coeff of Logan 14.9 H Plt Count 429 Immature Gran % (Auto) 1.2 Neut % (Auto) 66.5 Lymph % (Auto) 26.5 [place] % (Auto) 4.9 Eos % (Auto) 0.5 Baso % (Auto) 0.4 Neut # (Auto) 5.4 Lymph # (Auto) 2.2 [place] # (Auto) 0.4 Eos # (Auto) 0.0 Baso # (Auto) 0.0 Immature Gran # (Auto) 0.1 Sodium 126.2 L Potassium 4.53 Chloride 91.9 L Carbon Dioxide 16.7 L Anion Gap 22.13 BUN 26.1 H Creatinine 1.34 H Estimated GFR (MDRD) 42.00 BUN/Creatinine Ratio 19.47 Glucose 819.7 H* Lactic Acid 6.54 H Calcium 9.54 Total Bilirubin 0.35 AST 35.0 ALT 20.8 Alkaline Phosphatase 153.1 H Troponin I < 0.012 Total Protein 7.76 Albumin 4.21 Globulin 3.55 Albumin/Globulin Ratio 1.18 Urine Color Urine Clarity Urine pH Ur Specific [place] Urine Protein Urine Glucose (UA) Urine Ketones Urine Blood Urine Nitrite Urine Bilirubin Urine Urobilinogen Ur Leukocyte Esterase Urine Microscopic RBC Urine Microscopic WBC Ur Squamous Epith Cells Urine Bacteria Urine Yeast Adenovirus (PCR) B. pertussis DNA (PCR) B.parapertussis DNA PCR C. pneumoniae DNA (PCR) Coronavirus OC43 (PCR) Coronavirus HKU1 (PCR) Coronavirus 229E (PCR) Coronavirus NL63 (PCR) Human Metapneumovir PCR Influenza Type A (PCR) Influenza B (RT-PCR) M. pneumoniae (PCR) Parainfluenza 1 (PCR) Parainfluenza 2 (PCR) Parainfluenza 3 (PCR) Parainfluenza 4 (PCR) RSV (PCR) Entero/Rhino (PCR) SARS-CoV-2 (PCR) 07/05/21 07/05/21 07/05/21 18:40 19:20 20:29 WBC RBC Hgb Hct MCV MCH MCHC RDW Coeff of Logan Plt Count Immature Gran % (Auto) Neut % (Auto) Lymph % (Auto) [place] % (Auto) Eos % (Auto) Baso % (Auto) Neut # (Auto) Lymph # (Auto) [place] # (Auto) Eos # (Auto) Baso # (Auto) Immature Gran # (Auto) Sodium 131.8 L Potassium 4.23 Chloride 98.0 Carbon Dioxide 19.2 L Anion Gap 18.83 BUN 25.8 H Creatinine 1.25 Estimated GFR (MDRD) 45.00 BUN/Creatinine Ratio 20.64 Glucose 485.9 H D Lactic Acid Calcium 10.01 Total Bilirubin AST ALT Alkaline Phosphatase Troponin I Total Protein Albumin Globulin Albumin/Globulin Ratio Urine Color Yellow Urine Clarity Cloudy Urine pH 5.5 Ur Specific [place] 1.010 Urine Protein Negative Urine Glucose (UA) 2+ H Urine Ketones Negative Urine Blood Trace-lysed Urine Nitrite Negative Urine Bilirubin Negative Urine Urobilinogen 0.2 Ur Leukocyte Esterase Negative Urine Microscopic RBC 5-10 Urine Microscopic WBC 2-5 Ur Squamous Epith Cells 20-30 Urine Bacteria 2+ Urine Yeast Adenovirus (PCR) Not detected B. pertussis DNA (PCR) Not detected B.parapertussis DNA PCR Not detected C. pneumoniae DNA (PCR) Not detected Coronavirus OC43 (PCR) Not detected Coronavirus HKU1 (PCR) Not detected Coronavirus 229E (PCR) Not detected Coronavirus NL63 (PCR) Not detected Human Metapneumovir PCR Not detected Influenza Type A (PCR) Not detected Influenza B (RT-PCR) Not detected M. pneumoniae (PCR) Not detected Parainfluenza 1 (PCR) Not detected Parainfluenza 2 (PCR) Not detected Parainfluenza 3 (PCR) Not detected Parainfluenza 4 (PCR) Not detected RSV (PCR) Not detected Entero/Rhino (PCR) Not detected SARS-CoV-2 (PCR) Detected H 07/05/21 07/05/21 07/06/21 20:29 22:15 05:15 WBC RBC Hgb Hct MCV MCH MCHC RDW Coeff of Logan Plt Count Immature Gran % (Auto) Neut % (Auto) Lymph % (Auto) [place] % (Auto) Eos % (Auto) Baso % (Auto) Neut # (Auto) Lymph # (Auto) [place] # (Auto) Eos # (Auto) Baso # (Auto) Immature Gran # (Auto) Sodium 135.1 Potassium 4.04 Chloride 102.7 Carbon Dioxide 24.3 Anion Gap 12.14 BUN 23.6 H Creatinine 1.14 Estimated GFR (MDRD) 50.00 BUN/Creatinine Ratio 20.70 Glucose 309.0 H D Lactic Acid 4.19 H D Calcium 9.11 Total Bilirubin AST ALT Alkaline Phosphatase Troponin I Total Protein Albumin Globulin Albumin/Globulin Ratio Urine Color Yellow Urine Clarity Clear Urine pH 5.0 Ur Specific [place] 1.010 Urine Protein Negative Urine Glucose (UA) 2+ H Urine Ketones Negative Urine Blood Trace-intact H Urine Nitrite Negative Urine Bilirubin Negative Urine Urobilinogen 0.2 Ur Leukocyte Esterase Negative Urine Microscopic RBC 2-5 Urine Microscopic WBC Ur Squamous Epith Cells 10-20 Urine Bacteria Trace Urine Yeast Trace Adenovirus (PCR) B. pertussis DNA (PCR) B.parapertussis DNA PCR C. pneumoniae DNA (PCR) Coronavirus OC43 (PCR) Coronavirus HKU1 (PCR) Coronavirus 229E (PCR) Coronavirus NL63 (PCR) Human Metapneumovir PCR Influenza Type A (PCR) Influenza B (RT-PCR) M. pneumoniae (PCR) Parainfluenza 1 (PCR) Parainfluenza 2 (PCR) Parainfluenza 3 (PCR) Parainfluenza 4 (PCR) RSV (PCR) Entero/Rhino (PCR) SARS-CoV-2 (PCR) 07/06/21 05:15 WBC RBC Hgb Hct MCV MCH MCHC RDW Coeff of Logan Plt Count Immature Gran % (Auto) Neut % (Auto) Lymph % (Auto) [place] % (Auto) Eos % (Auto) Baso % (Auto) Neut # (Auto) Lymph # (Auto) [place] # (Auto) Eos # (Auto) Baso # (Auto) Immature Gran # (Auto) Sodium Potassium Chloride Carbon Dioxide Anion Gap BUN Creatinine Estimated GFR (MDRD) BUN/Creatinine Ratio Glucose Lactic Acid 1.34 D Calcium Total Bilirubin AST ALT Alkaline Phosphatase Troponin I Total Protein Albumin Globulin Albumin/Globulin Ratio Urine Color Urine Clarity Urine pH Ur Specific [place] Urine Protein Urine Glucose (UA) Urine Ketones Urine Blood Urine Nitrite Urine Bilirubin Urine Urobilinogen Ur Leukocyte Esterase Urine Microscopic RBC Urine Microscopic WBC Ur Squamous Epith Cells Urine Bacteria Urine Yeast Adenovirus (PCR) B. pertussis DNA (PCR) B.parapertussis DNA PCR C. pneumoniae DNA (PCR) Coronavirus OC43 (PCR) Coronavirus HKU1 (PCR) Coronavirus 229E (PCR) Coronavirus NL63 (PCR) Human Metapneumovir PCR Influenza Type A (PCR) Influenza B (RT-PCR) M. pneumoniae (PCR) Parainfluenza 1 (PCR) Parainfluenza 2 (PCR) Parainfluenza 3 (PCR) Parainfluenza 4 (PCR) RSV (PCR) Entero/Rhino (PCR) SARS-CoV-2 (PCR) Orders Category Date Time Status ADMIT PATIENT INPATIENT .TO MEDSURG (NON-MONITORED ADMISSION 07/05/21 21:05 Active BED) EKG-(ED ONLY) Stat CARDIO 07/05/21 17:48 Completed ACTIVITY .BR with BRP CARE 07/05/21 21:16 Active ACTIVITY .Early Mobilization for VTE Prevention CARE 07/05/21 21:16 Active ACTIVITY .Up With Assistance CARE 07/05/21 21:16 Active BLOOD GLUCOSE MONITORING ACCUCHECK Q6H CARE 07/05/21 21:16 Active GIVE HS SNACK 2100 CARE 07/05/21 21:18 Completed GIVE HS SNACK 2100 CARE 07/05/21 23:27 Active INTAKE & OUTPUT Q8HR CARE 07/05/21 21:17 Active IP: INSERT SALINE LOCK ONCE CARE 07/05/21 21:17 Active VITAL SIGNS Q8HR CARE 07/05/21 21:17 Active ADA 1800 APOLINAR. DIET DIETARY 07/06/21 Breakfast Ordered HS SNACK DIETARY 07/05/21 Dinner Ordered HS SNACK DIETARY 07/05/21 Dinner Ordered HEEL FINISHER CONSULT [CONSULT HEEL FINISHER] ONCE HEEL FINISHER 07/06/21 08:29 Active BASIC METABOLIC PANEL DAILY@0600 LAB 07/06/21 05:15 Completed BASIC METABOLIC PANEL DAILY@0600 LAB 07/07/21 06:00 Ordered BASIC METABOLIC PANEL Stat LAB 07/05/21 20:29 Completed CBC W/ AUTO DIFF Stat LAB 07/05/21 18:20 Completed COMPREHENSIVE METABOLIC PANEL Stat LAB 07/05/21 18:20 Completed LACTIC ACID DAILY@0600 LAB 07/06/21 05:15 Completed LACTIC ACID DAILY@0600 LAB 07/07/21 06:00 Ordered LACTIC ACID Stat LAB 07/05/21 18:20 Completed LACTIC ACID Stat LAB 07/05/21 20:29 Completed RESPIRATORY PANEL 2.1 (PCR) Stat LAB 07/05/21 19:20 Completed TROPONIN I Stat LAB 07/05/21 18:20 Completed URINALYSIS C & S IF INDICATED Stat LAB 07/05/21 18:40 Completed URINALYSIS C & S IF INDICATED Stat LAB 07/05/21 22:15 Completed URINE CULTURE Stat LAB 07/05/21 18:40 Results Aripiprazole [Abilify] MEDS 07/05/21 21:30 Active 5 mg PO DAILY Atorvastatin Calcium [Lipitor] MEDS 07/06/21 09:00 Active 80 mg PO DAILY Duloxetine HCl [Cymbalta] MEDS 07/06/21 09:00 Active 30 mg PO DAILY Enoxaparin Sodium [Lovenox] MEDS 07/06/21 09:00 Active 40 mg SUBCUT DAILY Gabapentin [Neurontin] MEDS 07/06/21 09:00 Active 300 mg PO BID Insulin Glargine,Hum.rec.anlog [Lantus] MEDS 07/06/21 09:00 Active 40 unit SUBCUT DAILY Insulin Regular, Human [Humulin R] MEDS 07/05/21 19:17 Discontinued 20 unit IV ONCE ONE Insulin Regular, Human [Humulin R] MEDS 07/05/21 21:00 Discontinued 20 unit IVP ONCE STA Insulin Regular, Human [Humulin R] MEDS 07/05/21 21:53 Active See Protocol SUBCUT PRN PRN Ketorolac Tromethamine [Toradol] MEDS 07/05/21 17:48 Discontinued 30 mg IVP ONCE STA Levothyroxine Sodium [Synthroid] MEDS 07/06/21 09:00 Active 100 mcg PO QAM Levothyroxine Sodium [Synthroid] MEDS 07/06/21 09:00 Active 75 mcg PO QAM Lisinopril [Zestril] MEDS 07/06/21 09:00 Active 10 mg PO BID Metoprolol Tartrate [Lopressor] MEDS 07/06/21 09:00 Active 50 mg PO BID Omeprazole [Prilosec] MEDS 07/06/21 09:00 Active 20 mg PO BID Ondansetron HCl/Pf [Zofran 4 mg/2 ml] MEDS 07/05/21 17:48 Discontinued 4 mg IVP ONCE ONE Sodium Chloride 0.9% [Sodium Chloride] 1,000 ml MEDS 07/05/21 21:30 Active IV 150 mls/hr Sodium Chloride 0.9% [Sodium Chloride] 1,000 ml MEDS 07/05/21 17:48 Discontinued IV BOLUS Sodium Chloride 0.9% [Sodium Chloride] 1,000 ml MEDS 07/05/21 18:45 Discontinued IV BOLUS levothyroxine MEDS 07/06/21 09:00 Discontinued 175 mcg PO DAILY RESUSCITATION STATUS Routine OTHERS 07/05/21 21:16 Ordered CHEST, 1V AP ONLY Stat RADS 07/05/21 17:[address] ABDOMEN/PELVIS WO CONTRAST Stat RADS 07/05/21 17:48 Completed Medications Generic Name Dose Route Start Last Admin Trade Name Freq PRN Reason Stop Dose Admin Aripiprazole 5 mg 07/05/21 21:30 07/06/21 09:53 Aripiprazole 5 Mg Tablet PO 5 mg DAILY DARYA Administration Atorvastatin Calcium 80 mg 07/06/21 09:00 07/06/21 09:53 Atorvastatin Calcium 20 Mg Tablet PO 80 mg DAILY DARYA Administration Duloxetine HCl 30 mg 07/06/21 09:00 07/06/21 09:54 Duloxetine Hcl 30 Mg Capsule.Dr PO 30 mg DAILY DARYA Administration Enoxaparin Sodium 40 mg 07/06/21 09:00 07/06/21 09:52 Enoxaparin Sodium 40 Mg/0.4 Ml Syr SUBCUT 40 mg DAILY DARYA Administration Gabapentin 300 mg 07/06/21 09:00 07/06/21 09:53 Gabapentin 300 Mg Capsule PO 300 mg BID DARYA Administration Sodium Chloride 1,000 mls @ 150 mls/hr 07/05/21 21:30 07/06/21 11:13 Sodium Chloride IV 150 mls/hr .Q6H40M DARYA Administration Insulin Glargine 40 unit 07/06/21 09:00 07/06/21 09:52 Insulin Glargine,Hum.Rec.Anlog 100 Units/Ml SUBCUT 40 unit DAILY DARYA Administration Insulin Human Regular 0 unit 07/05/21 21:53 07/06/21 11:13 Insulin Regular, Human 100 Unit/Ml (3ml) Vial SUBCUT 8 unit PRN PRN Administration Hyperglycemia Protocol Levothyroxine Sodium 100 mcg 07/06/21 09:00 07/06/21 09:54 Levothyroxine Sodium 100 Mcg Tablet PO 100 mcg QAM DARYA Administration Levothyroxine Sodium 75 mcg 07/06/21 09:00 07/06/21 09:53 Levothyroxine Sodium 75 Mcg Tablet PO 75 mcg QAM DARYA Administration Lisinopril 10 mg 07/06/21 09:00 07/06/21 09:56 Lisinopril 10 Mg Tablet PO 10 mg BID DARYA Administration Metoprolol Tartrate 50 mg 07/06/21 09:00 07/06/21 09:54 Metoprolol Tartrate 50 Mg Tablet PO 50 mg BID DARYA Administration Omeprazole 20 mg 07/06/21 09:00 07/06/21 09:56 Omeprazole 20 Mg Capsule.Dr PO 20 mg BID DARYA Administration Discontinued Medications Generic Name Dose Route Start Last Admin Trade Name Freq PRN Reason Stop Dose Admin Sodium Chloride 1,000 mls @ 1,000 mls/hr 07/05/21 17:48 07/05/21 18:22 Sodium Chloride IV 07/05/21 18:47 1,000 mls/hr BOLUS STA Administration Sodium Chloride 1,000 mls @ 1,000 mls/hr 07/05/21 18:45 07/05/21 19:28 Sodium Chloride IV 07/05/21 19:44 1,000 mls/hr BOLUS STA Administration Insulin Human Regular 20 unit 07/05/21 19:17 07/05/21 19:28 Insulin Regular, Human 100 Unit/Ml (3ml) Vial IV 07/05/21 19:18 20 unit ONCE ONE Administration Insulin Human Regular 20 unit 07/05/21 21:00 07/05/21 21:04 Insulin Regular, Human 100 Unit/Ml (3ml) Vial IVP 07/05/21 21:01 20 unit ONCE STA Administration Ketorolac Tromethamine 30 mg 07/05/21 17:48 07/05/21 18:22 Ketorolac Tromethamine 30 Mg/Ml Vial IVP 07/05/21 17:49 30 mg ONCE STA Administration Non-Formulary Medication 175 mcg 07/06/21 09:00 Levothyroxine PO DAILY DARYA Ondansetron HCl 4 mg 07/05/21 17:48 07/05/21 18:22 Ondansetron Hcl/Pf 4 Mg/2 Ml Sdv IVP 07/05/21 17:49 4 mg ONCE ONE Administration Assessment (1) Anxiety: Status: Acute Code(s): F41.9 - Anxiety disorder, unspecified SNOMED Code(s): 48127649 (2) Diabetes type 2, uncontrolled: Status: Acute Code(s): E11.65 - Type 2 diabetes mellitus with hyperglycemia SNOMED Code(s): 575564976 Qualifiers: Glycemic state: with hyperglycemia Qualified Code(s): E11.65 - Type 2 diabetes mellitus with hyperglycemia (3) Restless legs syndrome: Status: None Code(s): G25.81 - Restless legs syndrome SNOMED Code(s): 15288053 Plan Plan: Continue IV fluids 75cc /hr Insulin adminstration Discharge plannning
[2021-07-06] MEDS ORDERED: GLUCOPHAGE PO SCH (17:00)
[2021-07-06 21:15] VITALS: BP 134/76; TEMP 98.1
--- NOTE | 2021-07-07 10:11 | PCM.DC ---
Final Diagnosis: Uncontrolled diabetes. Nausea and vomiting. Dehydration. Acute kidney injury. (1) Anxiety: Status: Acute Code(s): F41.9 - Anxiety disorder, unspecified SNOMED Code(s): 83665650 (2) Diabetes type 2, uncontrolled: Status: Acute Code(s): E11.65 - Type 2 diabetes mellitus with hyperglycemia SNOMED Code(s): 748959918 Qualifiers: Glycemic state: with hyperglycemia Qualified Code(s): E11.65 - Type 2 diabetes mellitus with hyperglycemia (3) Restless legs syndrome: Status: None Code(s): G25.81 - Restless legs syndrome SNOMED Code(s): 32419386 Reason for Hospitalization: She was out of insulin, came to ER with blood sugar 800 range with nausea and vomiting. She had become dehydrated and had an LEWIS. Needed admit to control blood sugar, IVF, med. Prognosis at Discharge: Patient left AMA because she had problems at home that she had to urgently attend to. Condition at Discharge: Stable. Medications at Discharge: Ambulatory Orders Medication Instructions Recorded blood-glucose meter #1 each 10/21/19 polyethylene glycol 3350 17 17 gm PO QDAY PRN #119 gm 10/21/19 gram/dose oral powder (Miralax) blood-glucose meter #1 NS 02/17/21 pen needle, diabetic 31 gauge x See Rx Instructions .ROUTE 03/02/2112/08" (TRUEplus Pen Needle) .COMPLEX #100 ea aripiprazole 5 mg tablet (Abilify) 5 mg PO QDAY #30 tab 03/11/21 ondansetron HCl 4 mg tablet 4 mg PO Q8H #20 tab 03/11/21 (Zofran) ferrous sulfate 325 mg (65 mg See Rx Instructions .ROUTE 05/07/21 iron) tablet .COMPLEX #30 tab insulin glargine 100 unit/mL See Rx Instructions .ROUTE 06/04/21 subcutaneous solution (Lantus .COMPLEX #20 unspecified U-100 Insulin) insulin lispro 100 unit/mL See Rx Instructions .ROUTE 06/04/21 subcutaneous solution (Humalog .COMPLEX #10 ml U-100 Insulin) blood sugar diagnostic (Blood #120 strip 06/08/21 Glucose Test) insulin syringe-needle U-100 1 mL See Rx Instructions .ROUTE 06/08/21 31 gauge x 02/07" (BD Insulin .COMPLEX #100 ea Syringe Ultra-Fine) lancets 33 gauge #100 ea 06/08/21 atorvastatin 80 mg tablet 80 mg PO DAILY 06/12/21 duloxetine 30 mg capsule,delayed 30 mg PO DAILY 06/12/21 release ibuprofen 800 mg tablet 800 mg PO Q8H #20 tab 06/12/21 levothyroxine 175 mcg tablet 175 mcg PO DAILY 06/12/21 lisinopril 10 mg tablet 10 mg PO BID 06/12/21 metformin 1,000 mg tablet 1,000 mg PO BID 06/12/21 metoprolol tartrate 50 mg tablet 50 mg PO BID 06/12/21 omeprazole magnesium 20 mg 20 mg PO BID #20 tab 06/12/21 tablet,delayed release (Prilosec OTC) gabapentin 300 mg capsule 300 mg PO BID #60 cap 07/05/21 Lab/Diagnostics: Refer to chart. Glucose levels improved. Renal function improved. Education Provided to Patient and Family: She left AMA. Follow-ups: She had been advised when admitted to find new PCP because Dr. Gannon's office had discharged her. Discharge Disposition: [facility] Hospital Course: Given IVF with insulin. Insulin dose being adjusted. Renal function improved. No source for infection found. She suddenly left AMA because of some issue with police at her house. Plan: The nurse advised her when she left AMA that I would call in insulin Rx for her pending seeing PCP because this entire scenario will repeat otherwise. All the patient had to do was call back to ER, as far as I know this never happened.
== END 2021-07-06 23:35 | disposition left against medical advice (07) | DRG 177 ==
LOC: ED 17:17 → SCU 21:11 → MEDSURG A 07-06 09:15
PROVIDERS: ADMIT Emergency Medicine; ATTEND Emergency Medicine
DX: G25.81 Restless legs syndrome; Z79.899 Other long term (current) drug therapy; U07.1 COVID-19; D64.9 Anemia, unspecified; I10 Essential (primary) hypertension; J12.82 Pneumonia due to coronavirus disease 2019; F33.9 Major depressive disorder, recurrent, unspecified; E11.65 Type 2 diabetes mellitus with hyperglycemia; M13.80 Other specified arthritis, unspecified site; E03.9 Hypothyroidism, unspecified; F41.9 Anxiety disorder, unspecified

== ENCOUNTER 2024-01-30 12:32 | Observation (INO) ==
--- NOTE | 2024-01-30 13:11 | ED.PDOC ---
General ED Provider: Dr. AARON BANUELOS DO Chief Complaint: Abscess Stated Complaint: Patient is a 53 yo F here for right gluteal area pain patient afebrile and vitally stable She reports she thought she popped a boil on her butt last week Now it has become red and painful She beleives there has also been vmware consultant took photo for description large tender swollen red area with eschar Possible spider bite She denies falls injuries recent surgeries, denies injection drug use PCP is Dr. Moreno She reports she is taking all medications as directed She is a non smoker Patient amenable to labs and imaging Time Seen by Provider: 01/30/24 12:39 Information Source: Patient Primary Care Provider: JUAN MORENO Nursing and Triage Documentation Reviewed and Agree: Yes What is Opioid Naive?: *Opioid Naive implies the patient is not already taking opioids or not chronically receiving opioids on a daily basis. *PRN dosing is not "usually" associated with tolerance. *Patients are at higher risk of over-sedation and aspiration. What is Opioid Tolerant?: *Opioid Tolerance implies less than the expected response to an opioid. *Acquired tolerance is defined by the patient taking 60mg of oral morphine daily (or equianalgesic dose of another opioid) for 1 week or more. *Often associated with chronic pain. *May take more than usual dose to achieve desired pain control. Review of Systems Review Of Systems Constitutional: Denies Chills, Fever or Weakness Eyes: Denies Blindness or Vision change Ears, Nose, Mouth, Throat: Denies Ear pain, Ear discharge or Nose pain Respiratory: Denies Cough or Wheezing Cardiac: Denies Chest pain or Palpitations GI: Denies Abdominal pain, Constipated or Diarrhea : Denies Burning or Discharge Musculoskeletal: Reports Other (R gluteal pain); Denies Back pain Skin: Reports Rash Neurological: Reports No symptoms Endocrine: Reports No symptoms Hematologic/Lymphatic: Reports No symptoms All Other Systems: Reviewed and Negative [facility] Medical History Abscess of right axilla Anemia Anxiety Anxiety Arthritis Bilateral carpal tunnel syndrome Chronic headaches Depression Diabetes mellitus Diabetes type 2, uncontrolled Edema Hyperlipidemia Hypertension Hypertriglyceridemia Hypothyroidism Immunization refused Irritation of right eye Neuropathic pain of both feet Non-compliant patient Restless legs syndrome Sleep apnea Thyroid disorder Family History (Updated 07/05/21 @ 22:20 by BROOKE FRITCH, RN) Mother Age: 76 Diabetes Cardiac disease Hyperlipidemia Hypothyroidism Hypertension COVID-19 BROTHER No problems noted. BROTHER Age: 54 No problems noted. 19 CHILD Age: 21 No problems noted. Social History Smoking and tobacco status: Former smoker Second hand smoke exposure: Yes Alcohol intake: never Substance use type: does not use Miladys/confucianist: none Special miladys needs: No Agree to transfusion: Yes Adopted: No Caregiver/support person: No Foster care: No Household members: children Housing: house Lives independently: Yes Highest education level completed: high school graduate Financial difficulty paying for basics: not applicable service: No correction: No Current occupational status: unemployed Current occupational exposures/hazards: No Pets and animals: Yes Leisure activites: music and reading History of recent travel: No Sexually active: No Do you think of yourself as: straight/heterosexual Current gender identity: female Seatbelt use: always Helmet use: No (N/A) Drives intoxicated or rides with intoxicated freight delivery driver: No Water heater temperature set < 120 degrees: Yes Working smoke detector in home: Yes Fire extinguisher in home: Yes Carbon monoxide detector in home: Yes Firearms in home: No Surgical History History of musculoskeletal system surgery History of surgery History of tubal ligation Status post cholecystectomy Status post thyroidectomy Female Reproductive History Menstrual Hx Hysterectomy: No Hx Tubal Ligation: Yes Physical Exam Physical Exam Appearance: Reports Well-appearing, Well-nourished and Obese Ill-appearing: Not Applicable Pain Distress: Moderate Eyes: Reports BIRD, EOMI and Conjunctiva clear ENT: Reports Ears normal, Nose normal and Oropharynx normal Neck: Supple Respiratory: Reports Airway patent and Breath sounds clear; Denies Wheezes Cardiovascular: Reports RRR and Pulses normal GI/: Reports Soft and Nontender Musculoskeletal: Reports Normal strength and ROM intact Skin: Reports Warm, Dry and Other (R gluteal lesion: 3 inches in diameter with erythema, 2 inch centered escahr with dried discharge, swelling and ttp, no crepitus) Neurological: Reports Sensation intact and Motor intact Psychiatric: Reports Affect appropriate and Mood appropriate Course Course 01/30/24 13:11 01/30/24 13:11 Orders, Labs, Meds: Lab Review 01/30/24 01/30/24 13:11 14:15 WBC 21.77 H RBC 3.59 L Hgb 9.8 L Hct 30.6 L MCV 85.2 MCH 27.3 MCHC 32.0 RDW Coeff of Logan 14.1 Plt Count 345 Immature Gran % (Auto) 0.9 Neut % (Auto) 80.8 H Lymph % (Auto) 12.1 [place] % (Auto) 5.6 Eos % (Auto) 0.4 Baso % (Auto) 0.2 Neut # (Auto) 17.6 H Lymph # (Auto) 2.6 [place] # (Auto) 1.2 Eos # (Auto) 0.1 Baso # (Auto) 0.1 Immature Gran # (Auto) 0.2 VBG pH 7.39 VBG pCO2 43 VBG pO2 28 L VBG HCO3 26.0 VBG O2 Saturation 52.0 L Sodium 129.8 L Potassium 4.46 Chloride 97.2 L Carbon Dioxide 21.4 L Anion Gap 15.66 BUN 18.7 H Creatinine 1.16 Estimated GFR (MDRD) 49.00 BUN/Creatinine Ratio 16.12 Glucose 502.2 H* Lactic Acid 3.21 H Calcium 8.90 Total Bilirubin 0.81 AST 27.0 ALT 15.0 Alkaline Phosphatase 166.0 H Total Protein 7.35 Albumin 3.72 Globulin 3.63 Albumin/Globulin Ratio 1.02 Acetone, Qual Trace Orders Category Date Time Status OBSERVATION [[facility] PAT[facility]] [facility] 01/[facility] 14:57 Active (NON-MONITORED BED) VBG DRAW REQUEST Stat CARDIO 01/30/24 13:46 Completed ACTIVITY .Early Mobilization for VTE Prevention CARE 01/30/24 14:59 Active BLOOD GLUCOSE MONITORING (MED/SURG) 0630,1100,1700,2100 CARE 01/30/24 15:00 Active GIVE HS SNACK 2100 CARE 01/30/24 15:00 Active INTAKE & OUTPUT Q8HR CARE 01/30/24 14:59 Active NPO REMINDER: IMAGING ONCE CARE 01/30/24 13:01 Completed REMINDER: Give Insulin if Needed 0630,1100,1700,2100 CARE 01/30/24 14:59 Active VITAL SIGNS Q4HR CARE 01/30/24 14:59 Active ADA 1800 APOLINAR. DIET DIETARY 01/30/24 Dinner Ordered HS SNACK DIETARY 01/30/24 Dinner Ordered ACETONE, QUALITATIVE Stat LAB 01/30/24 13:11 Completed BLOOD CULTURE Stat LAB 01/30/24 15:10 Ordered CBC W/ AUTO DIFF DAILY@0600 LAB 01/31/24 06:00 Ordered CBC W/ AUTO DIFF DAILY@0600 LAB 02/01/24 06:00 Ordered CBC W/ AUTO DIFF Stat LAB 01/30/24 13:11 Completed CMP [COMPREHENSIVE METABOLIC PANEL] Stat LAB 01/30/24 13:11 Completed COMPREHENSIVE METABOLIC PANEL DAILY@0600 LAB 01/31/24 06:00 Ordered COMPREHENSIVE METABOLIC PANEL DAILY@0600 LAB 02/01/24 06:00 Ordered LACTIC ACID Stat LAB 01/30/24 13:11 Completed LACTIC ACID Timed LAB 01/30/24 15:10 Received SARS COV-2 RNA RAPID ROBBY Stat LAB 01/30/24 15:00 Received VENOUS BLOOD GAS Stat LAB 01/30/24 14:15 Completed Acetaminophen [Tylenol] Meds 01/30/24 14:59 Ordered 650 mg PO Q4H PRN Cefazolin Sodium/Dextrose,Iso [Ancef 1 gm/50 ml D5w] Meds 01/30/24 21:00 Ordered 1 gm in 50 ml IV Q8HR Cefazolin Sodium/Dextrose,Iso [Ancef 1 gm/50 ml D5w] Meds 01/30/24 14:52 Active 2 gm in 100 ml IV ONCE Insulin Regular, Human [Humulin R] Meds 01/30/24 14:59 Ordered See Protocol SUBCUT PRN PRN Ketorolac Tromethamine [Toradol] Meds 01/30/24 14:59 Ordered 15 mg IVP Q6HR PRN Morphine Sulfate [Morphine 4 mg/ml Syringe] Meds 01/30/24 13:06 Discontinued 4 mg IVP ONCE ONE Ondansetron HCl/Pf [Zofran 4 mg/2 ml] Meds 01/30/24 13:06 Discontinued 4 mg IVP ONCE ONE Ondansetron HCl/Pf [Zofran 4 mg/2 ml] Meds 01/30/24 14:59 Ordered 4 mg IVP Q6H PRN Sodium Chloride 0.9% [Sodium Chloride] 1,000 ml Meds 01/30/24 15:30 Ordered IV 125 mls/hr Sodium Chloride 0.9% [Sodium Chloride] 1,000 ml Meds 01/30/24 13:[address] ABDOMEN/PELVIS W CONTRAST Stat RADS 01/30/24 13:01 Completed Medications Generic Name Dose Route Start Last Admin Trade Name Tamela PRN Reason Stop Dose Admin Acetaminophen 650 mg 01/30/24 14:59 Acetaminophen 325 Mg Tablet PO Q4H PRN Mild Pain Cefazolin Sodium/Dextrose 2 gm in 100 mls @ 150 mls/hr 01/30/24 14:52 Ancef 1 Gm/50 Ml D5w IV 01/30/24 15:31 ONCE ONE Cefazolin Sodium/Dextrose 1 gm in 50 mls @ 75 mls/hr 01/30/24 21:00 Ancef 1 Gm/50 Ml D5w IV 02/02/24 20:59 Q8HR DARYA Sodium Chloride 1,000 mls @ 125 mls/hr 01/30/24 15:30 Sodium Chloride IV .Q8H DARYA Insulin Human Regular 0 unit 01/30/24 14:59 Insulin Regular, Human 100 Unit/Ml (10ml) Vial SUBCUT PRN PRN Hyperglycemia Protocol Ketorolac Tromethamine 15 mg 01/30/24 14:59 Ketorolac Tromethamine 15 Mg/Ml Vial IVP 02/03/24 15:01 Q6HR PRN Pain Ondansetron HCl 4 mg 01/30/24 14:59 Ondansetron Hcl/Pf 4 Mg/2 Ml Sdv IVP Q6H PRN Nausea / Vomiting Discontinued Medications Generic Name Dose Route Start Last Admin Trade Name Tamela PRN Reason Stop Dose Admin Sodium Chloride 1,000 mls @ 1,000 mls/hr 01/30/24 13:47 01/30/24 14:10 Sodium Chloride IV 01/30/24 14:46 1,000 mls/hr BOLUS ONE Administration Morphine Sulfate 4 mg 01/30/24 13:06 01/30/24 13:16 Morphine Sulfate 4 Mg/Ml Syringe IVP 01/30/24 13:07 4 mg ONCE ONE Administration Ondansetron HCl 4 mg 01/30/24 13:06 01/30/24 13:16 Ondansetron Hcl/Pf 4 Mg/2 Ml Sdv IVP 01/30/24 13:07 4 mg ONCE ONE Administration Vital Signs: Temp Pulse Resp BP Pulse Ox 01/30/24 12:44 98 F 99 22 H 149/84 H 98 MDM: Patient is a 53 yo F here for R gluteal lesion Patient afebrile and vitally stable Hx from patient chart review by me 3+ labs and 1 ct abd WDX: R gluteal cellulitis, uncontrolled diabetes, leukocytosis, pain acute moderate complexity DDX: I considered shock, abscess, fistula but these were not found SDOH: Patient has risk factors, and issues with compliance I do not think she would improve at home with oral antibiotics Patient agrees with plan Ancef here Consulted Hospitalist and agrees Discharge Plan Discharge Patient Disposition: PLACED OBSERVATION Discharge Problem: Cellulitis, Acute hyperglycemia, Leukocytosis, Pain, Elevated lactic acid level Did you review [place] [employer] SAF[employer] INSPECTOR for ALL controlled substances?: Not Applicable ED Provider: AARON BANUELOS Condition: Fair Physician Progress Note: []
[2024-01-30 13:15] LABS: BASOPHILS # (AUTO) 0.1 K/uL (0-0.2); BASOPHILS % (AUTO) 0.2 % (0.0-3.0); EOSINOPHILS # (AUTO) 0.1 K/ul (0.0-0.7); EOSINOPHILS % (AUTO) 0.4 % (0.0-7.0); HEMATOCRIT 30.6 % (37.0-47.0); HEMOGLOBIN 9.8 g/dl (12.0-16.0); IMMATURE GRANULOCYTE # (AUTO) 0.2 (0.0-1.0); IMMATURE GRANULOCYTE % (AUTO) 0.9 % (0.0-5.0); LYMPHOCYTES # (AUTO) 2.6 K/uL (0.60-3.4); LYMPHOCYTES % (AUTO) 12.1 (10.0-50.0); MEAN CORPUSCULAR HEMOGLOBIN 27.3 pg (27.0-31.0); MEAN CORPUSCULAR VOLUME 85.2 fl (81.0-99.0); MONOCYTES # (AUTO) 1.2 K/uL (0.4-2.0); MONOCYTES % (AUTO) 5.6 (0-10); NEUTROPHILS # (AUTO) 17.6 K/ul (2.0-6.9); NEUTROPHILS % (AUTO) 80.8 % (42.2-75.2); PLATELET COUNT 345 10^3/uL (140-440); RDW COEFFICIENT OF VARIATION 14.1 % (11.6-14.8); RED BLOOD COUNT 3.59 10^6/ul (4.20-5.40); WHITE BLOOD COUNT 21.77 K/ul (4.6-10.2)
[2024-01-30] MEDS: ZOFRAN 4 MG/2 ML IVP ONE (13:16)
[2024-01-30] MEDS: MORPHINE 4 MG/ML SYRINGE IVP ONE (13:16)
[2024-01-30 13:28] LABS: ALBUMIN 3.72 g/dL (3.5-5.0); BILIRUBIN,TOTAL 0.81 mg/dL (0.2-1.3); BLOOD UREA NITROGEN 18.7 mg/dL (7-17); CALCIUM 8.9 mg/dL (8.4-10.2); CARBON DIOXIDE 21.4 mmol/L (22-30.0); CHLORIDE 97.2 mmol/L (98-107); CREATININE 1.16 mg/dL (0.60-1.30); POTASSIUM 4.46 mmol/L (3.5-5.1); SODIUM 129.8 mmol/L (134.5-145); TOTAL PROTEIN 7.35 g/dL (6.3-8.2)
[2024-01-30 13:35] LABS: GLUCOSE 502.2 mg/dL (74-106)
[2024-01-30] MEDS: SODIUM CHLORIDE 1,000 ML IV ONE (14:10)
[2024-01-30 14:29] LABS: VBG PH 7.39 (7.30-7.40)
--- NOTE | 2024-01-30 14:48 | CT ---
EXAM: CT ABDOMEN AND PELVIS WITH CONTRAST HISTORY: Sore of the right buttock. TECHNIQUE: CT acquisition of the abdomen and pelvis from the lower thorax through the pelvis followin g IV contrast administration, with the patient in the left lateral decubitus positioning. 2-D mac l and sagittal reformatted images were obtained from the axial source images. CT Dose Reduction Techniques Performed: Yes. COMPARISON: 07/05/2021 FINDINGS: Visualized portions of the lower chest included in this examination of the abdomen and pelvis show mi ld atelectasis with air trapping of the left lower lobe and lingula, secondary to patient positioning . The liver is enlarged, measuring about 20 cm in length, similar to before. No visible liver mass. N o biliary tree dilatation. Cholecystectomy, again noted. The pancreas, spleen, and adrenal glands h ave a normal appearance. The kidneys enhance symmetrically. Mild cortical scarring of both kidneys. No hydronephrosis. The uterus and ovaries have a normal appearance. No visible adnexal mass. The bowel has a normal appearance. No free air or free fluid. Several prominent and mildly enlarged ri ght external iliac chain and right inguinal lymph nodes. For example, right external iliac chain nod e measures 1.0 cm in short axis dimension. Node adjacent to the common femoral vein measures 1.4 cm. Right inguinal node 0.9 cm. Diffuse skin thickening of the right mid and lower buttock, with diffu se underlying subcutaneous edema and induration. No visible abscess, soft tissue gas, or foreign bod y. Bone window images show no significant lytic or sclerotic bone lesions. Stable chronic mild to moder ate compression fracture of the T12 superior endplate. IMPRESSION: 1. Moderate to severe diffuse cellulitis of the right mid and lower buttock. No visible abscess, so ft tissue gas, or foreign body. 2. Mild reactive right inguinal and right pelvic adenopathy. 3. Stable mild hepatomegaly. All CT scans are performed using dose optimization techniques as appropriate to the performed exam an d include at least one of the following: Automated exposure control, adjustment of the mA and/or kV according t o size, and the use of iterative reconstruction technique.
[2024-01-30] MEDS ORDERED: ZOFRAN 4 MG/2 ML IVP PRN (14:59)
[2024-01-30 15:17] LABS: SARS COV-2 RNA RAPID NAAT NEGATIVE (NEGATIVE)
[2024-01-30] MEDS: ANCEF 1 GM/50 ML D5W 2 GM/100 ML BAG IV ONE (15:35)
[2024-01-30] MEDS: SODIUM CHLORIDE 1,000 ML IV SCH (15:35)
--- NOTE | 2024-01-30 16:10 | PCM ---
Date of Service Date Seen by Provider: 01/30/24 Time Seen by Provider: 16:00 Admit Day/Time Admission Date: 01/30/24 Admission Time: 15:00 Reason for Admission Chief Complaint: CELLULITIS; UNCONTROLLED DM; ELEV WBC; ELEV LACTIC Hospital Provider Hospital Provider: MISTY PEARSON, [facility] Primary Care Physician Primary Care Physician: JUAN MORENO History of Present Illness History of Present Illness: 53 yo female presents to the ER with concern of abscess to R buttock. Patient has had lesion x 1 week. States it has progressively gotten worse since then. Denies fever that she is aware of. Does report chills/sweats. Significant pain and swelling to area. Unsure if spider bite or insect bite is possibility. Has not sought treatment until today. CT completed in ER showed mod to severe cellulitis without abscess. No drainage present and has not been draining at home. WBC count 22, lactic 3. 2L of fluids given in ER. Admitted to Med/surg observation for treatment of cellulitis. Case Discussed With Case Discussed With: Patient's case was discussed with the ER Physicians, Dr. Vidal [facility] Medical History Arthritis M19.90 - Unspecified osteoarthritis, unspecified site (ICD-10) Anxiety F41.9 - Anxiety disorder, unspecified (ICD-10) Surgical History History of surgery Left carpal tunnel repair Z98.890 - Other specified postprocedural states (ICD-10) History of musculoskeletal system surgery right knee arthroscopy. Amputation all toes right foot. Z98.890 - Other specified postprocedural states (ICD-10) History of tubal ligation Z98.51 - Tubal ligation status (ICD-10) Status post thyroidectomy Z98.890 - Other specified postprocedural states (ICD-10) Status post cholecystectomy Z90.49 - Acquired absence of other specified parts of digestive tract (ICD- 10) Family History Mother Age: 76 Diabetes Cardiac disease Hyperlipidemia Hypothyroidism Hypertension COVID-19 BROTHER No problems noted. BROTHER Age: 54 No problems noted. 19 CHILD Age: 21 No problems noted. Social History Smoking and tobacco status: Former smoker Second hand smoke exposure: Yes Alcohol intake: never Substance use type: does not use Miladys/adventist: CAODAISM Special miladys needs: No Agree to transfusion: Yes Adopted: No Caregiver/support person: No Foster care: No Household members: children Housing: house Lives independently: Yes Highest education level completed: high school graduate Financial difficulty paying for basics: not applicable service: No halfway: No Current occupational status: unemployed Current occupational exposures/hazards: No Pets and animals: Yes Leisure activites: music and reading History of recent travel: No Sexually active: No Do you think of yourself as: straight/heterosexual Current gender identity: female Seatbelt use: always Helmet use: No (N/A) Drives intoxicated or rides with intoxicated haulpak driver: No Water heater temperature set < 120 degrees: Yes Working smoke detector in home: Yes Fire extinguisher in home: Yes Carbon monoxide detector in home: Yes Firearms in home: No Allergies Allergies Allergy/AdvReac Type Severity Reaction Status Date / Time No Known Allergies Allergy Verified 01/30/24 12:54 Current Medications Home Medications blood-glucose meter #1 ea 10/21/19 [Rx Confirmed 01/30/24 Last Taken Unknown] polyethylene glycol 3350 17 gram/dose oral powder (Miralax) 17 gm PO QDAY PRN constipation #119 grams 10/21/19 [Rx Confirmed 01/30/24 Last Taken Unknown] blood-glucose meter ##1 02/17/21 [Rx Confirmed 01/30/24 Last Taken Unknown] pen needle, diabetic 31 gauge x 3/16" (TRUEplus Pen Needle) See Rx Instructions .Route .COMPLEX #100 ea 03/02/21 [Rx Confirmed 01/30/24 Last Taken Unknown] insulin glargine 100 unit/mL subcutaneous solution (Lantus U-100 Insulin) See Rx Instructions .Route .COMPLEX ##20 06/04/21 [Rx Confirmed 01/30/24 Last Taken Unknown] insulin lispro 100 unit/mL subcutaneous solution (Humalog U-100 Insulin) See Rx Instructions .Route .COMPLEX #10 mL 06/04/21 [Rx Confirmed 01/30/24 Last Taken Unknown] blood sugar diagnostic (Blood Glucose Test strips) #120 strips 06/08/21 [Rx Confirmed 01/30/24 Last Taken Unknown] insulin syringe-needle U-100 1 mL 31 gauge x 5/16" (BD Insulin Syringe Ultra- Fine) See Rx Instructions .Route .COMPLEX #100 ea 06/08/21 [Rx Confirmed 01/30/24 Last Taken Unknown] lancets 33 gauge #100 ea 06/08/21 [Rx Confirmed 01/30/24 Last Taken Unknown] atorvastatin 80 mg tablet 80 mg PO DAILY 06/12/21 [History Confirmed 01/30/24 Last Taken Unknown] lisinopril 10 mg tablet 10 mg PO BID 06/12/21 [History Confirmed 01/30/24 Last Taken Unknown] metformin 1,000 mg tablet 1,000 mg PO BID 06/12/21 [History Confirmed 01/30/24 Last Taken Unknown] metoprolol tartrate 50 mg tablet 50 mg PO BID 06/12/21 [History Confirmed 01/30/24 Last Taken Unknown] ergocalciferol (vitamin D2) 1,250 mcg (50,000 unit) capsule 1,250 mcg PO QDAY 01/12/22 [History Confirmed 01/30/24 Last Taken Unknown] gabapentin 300 mg capsule 300 mg PO Q8H 01/12/22 [History Confirmed 01/30/24 Last Taken Unknown] levothyroxine 200 mcg tablet 200 mcg PO QDAY 01/12/22 [History Confirmed 01/30/24 Last Taken Unknown] aspirin 81 mg tablet,delayed release 81 mg PO DAILY 01/30/24 [History Confirmed 01/30/24 Last Taken Unknown] dapagliflozin propanediol 10 mg tablet (corriega) 10 mg PO DAILY 01/30/24 [History Confirmed 01/30/24 Last Taken Unknown] desvenlafaxine succinate 50 mg tablet,extended release 24 hr 50 mg PO DAILY 01/30/24 [History Confirmed 01/30/24 Last Taken Unknown] meloxicam 7.5 mg tablet 7.5 mg PO DAILY 01/30/24 [History Confirmed 01/30/24 Last Taken Unknown] prazosin 1 mg capsule 1 mg PO DAILY 01/30/24 [History Confirmed 01/30/24 Last Taken Unknown] ropinirole 1 mg tablet 1 mg PO DAILY 01/30/24 [History Confirmed 01/30/24 Last Taken Unknown] Home Acetaminophen (Acetaminophen 325 Mg Tablet) 650 mg PO Q4H PRN PRN Reason: Mild Pain Sodium Chloride (Sodium Chloride) 1,000 mls @ 125 mls/hr IV .Q8H [facility] Last Admin: 01/30/24 15:35 Dose: 125 mls/hr VANCOMYCIN/WATER FOR INJ (PEG) (Vancomycin 1.5 Gram/300 Ml Premix) 1.5 gm in 300 mls @ 200 mls/hr IV DAILY DARYA Stop: 02/02/24 16:29 Insulin Human Regular (Insulin Regular, Human 100 Unit/Ml (10ml) Vial) 0 unit SUBCUT PRN PRN; Protocol PRN Reason: Hyperglycemia Ketorolac Tromethamine (Ketorolac Tromethamine 15 Mg/Ml Vial) 15 mg IVP Q6HR PRN PRN Reason: Pain Stop: 02/03/24 15:01 Ondansetron HCl (Ondansetron Hcl/Pf 4 Mg/2 Ml Sdv) 4 mg IVP Q6H PRN PRN Reason: Nausea / Vomiting Discontinued Medications Sodium Chloride (Sodium Chloride) 1,000 mls @ 1,000 mls/hr IV BOLUS ONE Stop: 01/30/24 14:46 Last Infusion: 01/30/24 15:34 Dose: Infused Cefazolin Sodium/Dextrose (Ancef 1 Gm/50 Ml D5w) 2 gm in 100 mls @ 150 mls/hr IV ONCE ONE Stop: 01/30/24 15:31 Last Admin: 01/30/24 15:35 Dose: 150 mls/hr Morphine Sulfate (Morphine Sulfate 4 Mg/Ml Syringe) 4 mg IVP ONCE ONE Stop: 01/30/24 13:07 Last Admin: 01/30/24 13:16 Dose: 4 mg Ondansetron HCl (Ondansetron Hcl/Pf 4 Mg/2 Ml Sdv) 4 mg IVP ONCE ONE Stop: 01/30/24 13:07 Last Admin: 01/30/24 13:16 Dose: 4 mg Opioid Naive vs. Tolerant Does Patient Take Opioids?: No Is Patient Opioid Naive?: Yes What is Opioid Naive?: *Opioid Naive implies the patient is not already taking opioids or not chronically receiving opioids on a daily basis. *PRN dosing is not "usually" associated with tolerance. *Patients are at higher risk of over-sedation and aspiration. Is Patient Opioid Tolerant?: No What is Opioid Tolerant?: *Opioid Tolerance implies less than the expected response to an opioid. *Acquired tolerance is defined by the patient taking 60mg of oral morphine daily (or equianalgesic dose of another opioid) for 1 week or more. *Often associated with chronic pain. *May take more than usual dose to achieve desired pain control. Review of Systems Constitutional: Reports Chills and Sweats Head: Reports Normocephalic Eyes: Reports No symptoms Ears: Reports No symptoms Nose: Reports No symptoms Mouth: Reports No symptoms Throat: Reports No symptoms Cardiovascular: Reports No symptoms Respiratory: Reports No symptoms Gastrointestinal: Reports No symptoms Genitourinary: Reports No Symptoms Musculoskeletal: Reports No symptoms Dermatologic: Reports Other (R gluteal lesion, present x 1 week, no drainage, marked swelling and redness) Endocrine: Reports No symptoms Hematology: Reports No symptoms Immunology: Reports No symptoms Neurological: Reports No symptoms Psychiatric: Reports Anxiety Physical examination Most Recent Vital Signs: Most Recent Vital Signs Temperature 98 F 01/30/24 12:44 Temperature Source Infrared 01/30/24 12:44 Pulse Rate 99 01/30/24 12:44 Respiratory Rate 22 H 01/30/24 12:44 Blood Pressure 149/84 H 01/30/24 12:44 O2 Sat by Pulse Oximetry 98 01/30/24 12:44 Height 5 ft 3.5 in 01/30/24 12:44 Weight 213 lb 12.8 oz 01/30/24 12:44 Telemetry Heart Rate 65 01/28/22 11:25 Telemetry SPO2 100 01/28/22 11:25 Appearance: Positive No Apparent Distress, Alert and Oriented x3 and Obese Skin: Positive Warm, Good Turgor and Other (R gluteal lesion: approx 3x2 inch, eschar in center, edema and erythema surrounding site, no crepitus) HEENT: Positive Normocephalic and PERRLA Neck: Positive Supple and Midline Trachea Chest/Lungs: Positive Symmetrical With Equal Breath Sounds, Clear to Auscultation Bilaterally and Good Air Movement all 4 Lung Malcolm Heart: Positive RRR and Pulses Normal GI/: Positive Soft, Nontender, Bowel Sounds Normal and No Distention Musculoskeletal: Positive Other (amputation of all toes on R foot, 3 of 5 toes on left, and 1 finger to R hand) and Not Examined Extremities: Positive Intact Peripheral Pulses, Stable Joints Without Laxity, Good ROM in All Joints and Other (2 juan sized wounds to posterior right foot with eschar present bilaterally, no drainage, erythema, swelling) Neurological: Positive Sensation Intact, Motor intact, Alert and Oriented Psychiatric: Positive Oriented x4 Labs This Visit Labs This Visit: Labs This Visit 01/30/24 01/30/24 01/30/24 13:11 14:15 15:00 WBC 21.77 H RBC 3.59 L Hgb 9.8 L Hct 30.6 L MCV 85.2 MCH 27.3 MCHC 32.0 RDW Coeff of Logan 14.1 Plt Count 345 Immature Gran % (Auto) 0.9 Neut % (Auto) 80.8 H Lymph % (Auto) 12.1 Dougherty % (Auto) 5.6 Eos % (Auto) 0.4 Baso % (Auto) 0.2 Neut # (Auto) 17.6 H Lymph # (Auto) 2.6 Dougherty # (Auto) 1.2 Eos # (Auto) 0.1 Baso # (Auto) 0.1 Immature Gran # (Auto) 0.2 VBG pH 7.39 VBG pCO2 43 VBG pO2 28 L VBG HCO3 26.0 VBG O2 Saturation 52.0 L Sodium 129.8 L Potassium 4.46 Chloride 97.2 L Carbon Dioxide 21.4 L Anion Gap 15.66 BUN 18.7 H Creatinine 1.16 Estimated GFR (MDRD) 49.00 BUN/Creatinine Ratio 16.12 Glucose 502.2 H* Lactic Acid 3.21 H Calcium 8.90 Total Bilirubin 0.81 AST 27.0 ALT 15.0 Alkaline Phosphatase 166.0 H Total Protein 7.35 Albumin 3.72 Globulin 3.63 Albumin/Globulin Ratio 1.02 Acetone, Qual Trace SARS CoV-2 RNA Rapid ROBBY Negative 01/30/24 15:10 WBC RBC Hgb Hct MCV MCH MCHC RDW Coeff of Logan Plt Count Immature Gran % (Auto) Neut % (Auto) Lymph % (Auto) Dougherty % (Auto) Eos % (Auto) Baso % (Auto) Neut # (Auto) Lymph # (Auto) Dougherty # (Auto) Eos # (Auto) Baso # (Auto) Immature Gran # (Auto) VBG pH VBG pCO2 VBG pO2 VBG HCO3 VBG O2 Saturation Sodium Potassium Chloride Carbon Dioxide Anion Gap BUN Creatinine Estimated GFR (MDRD) BUN/Creatinine Ratio Glucose Lactic Acid 2.28 H D Calcium Total Bilirubin AST ALT Alkaline Phosphatase Total Protein Albumin Globulin Albumin/Globulin Ratio Acetone, Qual SARS CoV-2 RNA Rapid ROBBY Imaging Imaging: EXAM: CT ABDOMEN AND PELVIS WITH CONTRAST FINDINGS: Visualized portions of the lower chest included in this examination of the abdomen and pelvis show mild atelectasis with air trapping of the left lower lobe and lingula, secondary to patient positioning. The liver is enlarged, measuring about 20 cm in length, similar to before. No visible liver mass. No biliary tree dilatation. Cholecystectomy, again noted. The pancreas, spleen, and adrenal glands have a normal appearance. The kidneys enhance symmetrically. Mild cortical scarring of both kidneys. No hydronephrosis. The uterus and ovaries have a normal appearance. No visible adnexal mass. The bowel has a normal appearance. No free air or free fluid. Several prominent and mildly enlarged right external iliac chain and right inguinal lymph nodes. For example, right external iliac chain node measures 1.0 cm in short axis dimension. Node adjacent to the common femoral vein measures 1.4 cm. Right inguinal node 0.9 cm. Diffuse skin thickening of the right mid and lower buttock, with diffuse underlying subcutaneous edema and induration. No visible abscess, soft tissue gas, or foreign body. Bone window images show no significant lytic or sclerotic bone lesions. Stable chronic mild to moderate compression fracture of the T12 superior endplate. IMPRESSION: 1. Moderate to severe diffuse cellulitis of the right mid and lower buttock. No visible abscess, soft tissue gas, or foreign body. 2. Mild reactive right inguinal and right pelvic adenopathy. 3. Stable mild hepatomegaly. Review Statement Review Statement: I have independently reviewed and interpreted the labs/EKGs/imaging that were ordered by the ER provider. I have reviewed all outside records that are available currently in our EMR including imaging/notes/labs from previous visits. Plan Plan: 1. Cellulitis to R gluteal region - unable to culture due to no drainage or open area of wound, vancomycin ordered due to risk of poor healing r/t uncontrolled dm, MRSA swab ordered, wash area with soap and water daily, keep open to air 2. Sepsis - met SIRS criteria due to WBC count and respirations, blood cultures pending, 2L NS given in ER, continue NS@125mL/hr, vancomycin ordered 3. Lactic acidosis - secondary to above, repeat trending down, trend and monitor 4. Uncontrolled DM2 - BG 500 in ER, anion gap mildly elevated, will repeat glucose and cover with insulin with aggressive sliding scale, ADA diet 5. Wound, posterior R foot - follows with wound care 6. Hypertension - chronic, continue home medications 7. Hyperlipidemia - chronic, continue home medications 8. Anemia - chronic, at baseline level, monitor DVT Prophylaxis: Lovenox Time Spent: Greater than 80 minutes spent with patient, 50% of the time spent with this patient was devoted to counseling and coordination of care. [facility] minutes spent discussing advance care planning. Disposition: Admit to: Med/surg Observation Discussed Plan of Care with Dr. Edison Smith. Medications Medication Orders: Medications Ordered Category Date Time Status Acetaminophen [Tylenol] Meds 01/30/24 14:59 Active 650 mg PO Q4H PRN Cefazolin Sodium/Dextrose,Iso [Ancef 1 gm/50 ml D5w] Meds 01/30/24 21:00 Active 1 gm in 50 ml IV Q8HR Insulin Regular, Human [Humulin R] Meds 01/30/24 14:59 Active See Protocol SUBCUT PRN PRN Ketorolac Tromethamine [Toradol] Meds 01/30/24 14:59 Active 15 mg IVP Q6HR PRN Ondansetron HCl/Pf [Zofran 4 mg/2 ml] Meds 01/30/24 14:59 Active 4 mg IVP Q6H PRN Sodium Chloride 0.9% [Sodium Chloride] 1,000 ml Meds 01/30/24 15:30 Active IV 125 mls/hr
[2024-01-30 16:27] VITALS: BMI 38.2
[2024-01-30] MEDS: VANCOMYCIN 1.5 GRAM/300 ML PREMIX 1.5 GM/300 ML BAG IV SCH (17:14)
[2024-01-30] MEDS: TORADOL IVP PRN (17:14)
[2024-01-30] MEDS: HUMULIN R SUBCUT PRN (17:14)
[2024-01-30] MEDS: LANTUS SUBCUT SCH (20:06)
[2024-01-30] MEDS: REQUIP PO SCH (20:07)
[2024-01-30] MEDS: NEURONTIN PO SCH (20:07)
[2024-01-30] MEDS: LOPRESSOR PO SCH (20:07)
[2024-01-30] MEDS ORDERED: ANCEF 1 GM/50 ML D5W 1 GM/50 ML BAG IV SCH (21:00)
[2024-01-31 05:17] LABS: BASOPHILS # (AUTO) 0.1 K/uL (0-0.2); BASOPHILS % (AUTO) 0.3 % (0.0-3.0); EOSINOPHILS # (AUTO) 0.1 K/ul (0.0-0.7); EOSINOPHILS % (AUTO) 0.7 % (0.0-7.0); HEMATOCRIT 28.6 % (37.0-47.0); HEMOGLOBIN 8.9 g/dl (12.0-16.0); IMMATURE GRANULOCYTE # (AUTO) 0.2 (0.0-1.0); IMMATURE GRANULOCYTE % (AUTO) 0.9 % (0.0-5.0); LYMPHOCYTES # (AUTO) 3.3 K/uL (0.60-3.4); LYMPHOCYTES % (AUTO) 16.7 (10.0-50.0); MEAN CORPUSCULAR HEMOGLOBIN 26.5 pg (27.0-31.0); MEAN CORPUSCULAR HGB CONC 31.1 (31.8-35.4); MEAN CORPUSCULAR VOLUME 85.1 fl (81.0-99.0); MONOCYTES # (AUTO) 1.1 K/uL (0.4-2.0); MONOCYTES % (AUTO) 5.6 (0-10); NEUTROPHILS # (AUTO) 15.1 K/ul (2.0-6.9); NEUTROPHILS % (AUTO) 75.8 % (42.2-75.2); PLATELET COUNT 307 10^3/uL (140-440); RDW COEFFICIENT OF VARIATION 14.2 % (11.6-14.8); RED BLOOD COUNT 3.36 10^6/ul (4.20-5.40); WHITE BLOOD COUNT 19.85 K/ul (4.6-10.2)
[2024-01-31 05:33] LABS: ALANINE AMINOTRANSFERASE 11.7 U/L (0-35); ALBUMIN 3.4 g/dL (3.5-5.0); ALKALINE PHOSPHATASE 153.8 U/L (38-126); ASPARTATE AMINO TRANSFERASE 22.7 U/L (14-36); BILIRUBIN,TOTAL 0.66 mg/dL (0.2-1.3); BLOOD UREA NITROGEN 22.2 mg/dL (7-17); CALCIUM 8.64 mg/dL (8.4-10.2); CARBON DIOXIDE 21.2 mmol/L (22-30.0); CHLORIDE 102.4 mmol/L (98-107); CREATININE 1.24 mg/dL (0.60-1.30); GLUCOSE 199.7 mg/dL (74-106); POTASSIUM 4.31 mmol/L (3.5-5.1); SODIUM 133.1 mmol/L (134.5-145); TOTAL PROTEIN 6.93 g/dL (6.3-8.2)
[2024-01-31] MEDS: SYNTHROID PO SCH (05:54)
[2024-01-31 06:02] LABS: ERYTHROCYTE SEDIMENTATION RATE 5 mm/hr (0-20)
[2024-01-31] MEDS: SODIUM CHLORIDE 1,000 ML IV SCH (06:05)
[2024-01-31] MEDS: ASPIRIN EC PO SCH (07:58)
[2024-01-31] MEDS: MINIPRESS PO SCH (07:59)
[2024-01-31] MEDS: LIPITOR PO SCH (07:59)
[2024-01-31] MEDS: PRISTIQ ER PO SCH (07:59)
[2024-01-31] MEDS: ZESTRIL PO SCH (07:59)
--- NOTE | 2024-01-31 09:17 | PCM.PROG ---
Date/Time Seen Date Seen by Provider: 01/31/24 Time Seen by Provider: 09:00 Provider [facility] PE[facility]SON[facility] Chief Complaint Chief Complaint: CELLULITIS; UNCONTROLLED DM; ELEV WBC; ELEV LACTIC Subjective Subjective: States pain to area isn't as severe as yesterday. Feels swelling has improved some. Area began draining last night. Objective Appearance: Positive No Apparent Distress and Alert and Oriented x3 Chest/Lungs: Positive Symmetrical With Equal Breath Sounds, Clear to Auscultation Bilaterally and Good Air Movement all 4 Lung Malcolm Heart: Positive RRR and Pulses Normal GI/: Positive Soft, Nontender, Bowel Sounds Normal and No Distention Musculoskeletal: Positive Not Examined Neurological: Positive Sensation Intact, Motor intact, Alert and Oriented Additional Findings: R gluteal lesion: erythema and swelling surrounding improved from yesterday, eschar no longer present, purulent drainage noted on bed sheet from area Vital Signs Vital Signs: Vital Signs: Last 24 Hours 01/30/24 12:44 01/30/24 16:00 01/30/24 16:18 Temperature 98 F 98.7 F Temperature Source Infrared Temporal Artery Scan Pulse Rate 99 87 Respiratory Rate 22 H 18 22 H Blood Pressure 149/84 H Blood Pressure Mean Blood Pressure Right Arm 120/57 Blood Pressure Location Blood Pressure Position Supine O2 Sat by Pulse Oximetry 98 95 Oxygen Delivery Method Room Air Room Air Height 5 ft 3.5 in 5 ft 3 in Weight 213 lb 12.8 oz 216 lb 01/30/24 16:54 01/30/24 17:27 01/30/24 19:00 Temperature Temperature Source Pulse Rate Respiratory Rate Blood Pressure Blood Pressure Mean Blood Pressure Right Arm Blood Pressure Location Blood Pressure Position O2 Sat by Pulse Oximetry Oxygen Delivery Method Room Air Room Air Room Air Height Weight 01/30/24 19:39 01/30/24 19:42 01/30/24 20:16 Temperature 99.3 F Temperature Source Temporal Artery Scan Pulse Rate 92 Respiratory Rate 18 Blood Pressure 135/92 H Blood Pressure Mean 106 Blood Pressure Right Arm Blood Pressure Location Left Arm Blood Pressure Position Supine O2 Sat by Pulse Oximetry 95 Oxygen Delivery Method Room Air Room Air Room Air Height Weight 01/30/24 21:00 01/30/24 22:00 01/30/24 23:00 Temperature Temperature Source Pulse Rate Respiratory Rate Blood Pressure Blood Pressure Mean Blood Pressure Right Arm Blood Pressure Location Blood Pressure Position O2 Sat by Pulse Oximetry Oxygen Delivery Method Room Air Room Air Room Air Height Weight 01/31/24 00:00 01/31/24 01:00 01/31/24 02:00 Temperature Temperature Source Pulse Rate Respiratory Rate Blood Pressure Blood Pressure Mean Blood Pressure Right Arm Blood Pressure Location Blood Pressure Position O2 Sat by Pulse Oximetry Oxygen Delivery Method Room Air Room Air Room Air Height Weight 01/31/24 03:00 01/31/24 04:00 01/31/24 04:16 Temperature Temperature Source Pulse Rate Respiratory Rate Blood Pressure Blood Pressure Mean Blood Pressure Right Arm Blood Pressure Location Blood Pressure Position O2 Sat by Pulse Oximetry Oxygen Delivery Method Room Air Room Air Room Air Height Weight 01/31/24 04:58 01/31/24 06:00 01/31/24 07:00 Temperature 98.2 F Temperature Source Temporal Artery Scan Pulse Rate 90 Respiratory Rate 22 H Blood Pressure 112/73 Blood Pressure Mean 86 Blood Pressure Right Arm Blood Pressure Location Left Arm Blood Pressure Position Supine O2 Sat by Pulse Oximetry 98 Oxygen Delivery Method Room Air Room Air Room Air Height Weight 01/31/24 07:45 01/31/24 08:00 Temperature Temperature Source Pulse Rate Respiratory Rate Blood Pressure Blood Pressure Mean Blood Pressure Right Arm Blood Pressure Location Blood Pressure Position O2 Sat by Pulse Oximetry Oxygen Delivery Method Room Air Room Air Height Weight Lab Results Lab Results: Lab Results: Last 24 Hours 01/31/24 01/30/24 01/30/24 05:12 15:10 15:00 WBC 19.85 H RBC 3.36 L Hgb 8.9 L Hct 28.6 L MCV 85.1 MCH 26.5 L MCHC 31.1 L RDW Coeff of Logan 14.2 Plt Count 307 Immature Gran % (Auto) 0.9 Neut % (Auto) 75.8 H Lymph % (Auto) 16.7 Emmet % (Auto) 5.6 Eos % (Auto) 0.7 Baso % (Auto) 0.3 Neut # (Auto) 15.1 H Lymph # (Auto) 3.3 Emmet # (Auto) 1.1 Eos # (Auto) 0.1 Baso # (Auto) 0.1 Immature Gran # (Auto) 0.2 ESR 5 VBG pH VBG pCO2 VBG pO2 VBG HCO3 VBG O2 Saturation Sodium 133.1 L Potassium 4.31 Chloride 102.4 Carbon Dioxide 21.2 L Anion Gap 13.81 BUN 22.2 H Creatinine 1.24 Estimated GFR (MDRD) 45.00 BUN/Creatinine Ratio 17.90 Glucose 199.7 H D Hemoglobin A1c 12.57 H Lactic Acid 1.20 D 2.28 H D Calcium 8.64 Total Bilirubin 0.66 AST 22.7 ALT 11.7 Alkaline Phosphatase 153.8 H Total Protein 6.93 Albumin 3.40 L Globulin 3.53 Albumin/Globulin Ratio 0.96 Acetone, Qual SARS CoV-2 RNA Rapid ROBBY Negative 01/30/24 01/30/24 14:15 13:11 WBC 21.77 H RBC 3.59 L Hgb 9.8 L Hct 30.6 L MCV 85.2 MCH 27.3 MCHC 32.0 RDW Coeff of Logan 14.1 Plt Count 345 Immature Gran % (Auto) 0.9 Neut % (Auto) 80.8 H Lymph % (Auto) 12.1 Emm[place] % (Auto) 5.6 Eos % (Auto) 0.4 Baso % (Auto) 0.2 Neut # (Auto) 17.6 H Lymph # (Auto) 2.6 Emm[place] # (Auto) 1.2 Eos # (Auto) 0.1 Baso # (Auto) 0.1 Immature Gran # (Auto) 0.2 ESR VBG pH 7.39 VBG pCO2 43 VBG pO2 28 L VBG HCO3 26.0 VBG O2 Saturation 52.0 L Sodium 129.8 L Potassium 4.46 Chloride 97.2 L Carbon Dioxide 21.4 L Anion Gap 15.66 BUN 18.7 H Creatinine 1.16 Estimated GFR (MDRD) 49.00 BUN/Creatinine Ratio 16.12 Glucose 502.2 H* Hemoglobin A1c Lactic Acid 3.21 H Calcium 8.90 Total Bilirubin 0.81 AST 27.0 ALT 15.0 Alkaline Phosphatase 166.0 H Total Protein 7.35 Albumin 3.72 Globulin 3.63 Albumin/Globulin Ratio 1.02 Acetone, Qual Trace SARS CoV-2 RNA Rapid ROBBY Additional Comments Additional Comments: I have independently reviewed and interpreted the labs/EKGs/imaging ordered during this hospital stay. I have reviewed outside records that are available in our EMR that pertain to medical stay including imaging/notes/labs from previous visits. Active Medications Active Medications: Medications Generic Name Dose Route Start Last Admin Trade Name Freq PRN Reason Stop Dose Admin Acetaminophen 650 mg 01/30/24 14:59 Acetaminophen 325 Mg Tablet PO Q4H PRN Mild Pain Aspirin 81 mg 01/31/24 07:30 01/31/24 07:58 Aspirin 81 Mg Tablet.Dr PO 81 mg DAILYWM2 DARYA Administration Atorvastatin Calcium 80 mg 01/31/24 09:00 01/31/24 07:59 Atorvastatin Calcium 20 Mg Tablet PO 80 mg DAILY DARYA Administration Desvenlafaxine Succinate 50 mg 01/31/24 09:00 01/31/24 07:59 Desvenlafaxine Succinate 50 Mg Tab.Er.24h PO 50 mg DAILY DARYA Administration Ergocalciferol 50,000 unit 02/06/24 09:00 Ergocalciferol (Vitamin D2) 50,000 Unit Capsule PO WEEKLY DARYA Gabapentin 300 mg 01/30/24 21:00 01/31/24 05:54 Gabapentin 300 Mg Capsule PO 300 mg Q8HR DARYA Administration VANCOMYCIN/WATER FOR INJ (PEG) 1.5 gm in 300 mls @ 200 mls/hr 01/30/24 16:30 01/31/24 07:59 Vancomycin 1.5 Gram/300 Ml Premix IV 02/02/24 16:29 200 mls/hr DAILY DARYA Administration Sodium Chloride 1,000 mls @ 75 mls/hr 01/30/24 21:19 01/31/24 06:05 Sodium Chloride IV 75 mls/hr .[id number] DARYA Administration Insulin Glargine 70 unit 01/30/24 21:00 01/30/24 20:06 Insulin Glargine,Hum.Rec.Anlog 100 Units/Ml SUBCUT 70 unit BEDTIME DAYRA Administration Insulin Human Regular 0 unit 01/30/24 14:59 01/31/24 05:54 Insulin Regular, Human 100 Unit/Ml (10ml) Vial SUBCUT 4 unit PRN PRN Administration Hyperglycemia Protocol Ketorolac Tromethamine 15 mg 01/30/24 14:59 01/30/24 22:38 Ketorolac Tromethamine 15 Mg/Ml Vial IVP 02/03/24 15:01 15 mg Q6HR PRN Administration Pain Levothyroxine Sodium 200 mcg 01/31/24 06:00 01/31/24 05:54 Levothyroxine Sodium 100 Mcg Tablet PO 200 mcg QDAC2 DARYA Administration Lisinopril 10 mg 01/31/24 09:00 01/31/24 07:59 Lisinopril 10 Mg Tablet PO 10 mg DAILY DARYA Administration Metoprolol Tartrate 50 mg 01/30/24 21:00 01/31/24 07:59 Metoprolol Tartrate 50 Mg Tablet PO 50 mg BID DARYA Administration Ondansetron HCl 4 mg 01/30/24 14:59 Ondansetron Hcl/Pf 4 Mg/2 Ml Sdv IVP Q6H PRN Nausea / Vomiting Polyethylene Glycol 17 gm 01/30/24 16:36 Polyethylene Glycol 17 Gm Powd.Pack PO DAILY PRN Constipation Prazosin HCl 1 mg 01/31/24 09:00 01/31/24 07:59 Prazosin Hcl 1 Mg Capsule PO 1 mg DAILY DARYA Administration Ropinirole HCl 1 mg 01/30/24 21:00 01/30/24 20:07 Ropinirole Hcl 1 Mg Tablet PO 1 mg BEDTIME DARYA Administration Plan Plan: 1. Cellulitis to R gluteal region - wound began draining overnight, wound culture obtained, vancomycin ordered due to risk of poor healing r/t uncontrolled dm, MRSA swab ordered, wash area with soap and water daily, keep open to air 2. Sepsis - met SIRS criteria due to WBC count and respirations, blood cultures pending, 2L NS given in ER, continue NS@75mL/hr, vancomycin ordered 3. Lactic acidosis - Resolved 4. Uncontrolled DM2 - ADA diet, accuchecks qid with SSI, continue home lantus 5. Wound, posterior R foot - follows with wound care 6. Hypertension - chronic, continue home medications 7. Hyperlipidemia - chronic, continue home medications 8. Anemia - chronic, at baseline level, monitor DVT Prophylaxis: Lovenox Review Statement Review Statement: I have personally discussed and reviewed the patient's visit/currently labs/imaging/decision making with Dr. Smith, my supervising attending. Greater that 50 minutes spent with patient, 50% of the time spent with this patient was devoted to counseling and coordination of care. Additional Comments Additional Comments: This afternoon, RN reported patient having dark foul- smelling cloudy urine. UA ordered and UDS due to patient sleeping excessively and jerking movements while awake. Per previous documentation, patient is meth abuser. Suspect cellulitis due to meth injection. Urinalysis + for UTI with TNTC WBC, +2 bacteria, +1 leuk esterase. Added rocephin. Urine culture pending. UDS + for opiates, meth, and amphetamines.
[2024-01-31] MEDS: TYLENOL PO PRN (10:35)
[2024-01-31 18:17] LABS: BILIRUBIN,URINE Negative (NEGATIVE); CLARITY,URINE Turbid (CLEAR); COLOR,URINE Yellow (YELLOW); GLUCOSE, URINE (UA) 1+ (NEGATIVE); KETONES,URINE Negative (NEGATIVE); LEUKOCYTE ESTERASE ,URINE 1+ (NEGATIVE); NITRITE,URINE Negative (NEGATIVE); PROTEIN,URINE 1+ (NEGATIVE); URINE, BLOOD 2+ (NEGATIVE); UROBILINOGEN,URINE 0.2 (0.2)
[2024-01-31 18:26] LABS: BACTERIA,URINE 2+ (NOT PRESENT); URINE RBC, MICROSCOPIC 20-30 (0-2); URINE WBC, MICROSCOPIC TNTC (0-2)
[2024-01-31 18:27] LABS: AMPHETAMINE SCREEN,URINE POSITIVE (NEGATIVE); BARBITURATE SCREEN,URINE NEGATIVE (NEGATIVE); METHAMPHETAMINES SCREEN,URINE POSITIVE (NEGATIVE); OPIATE SCREEN,URINE POSITIVE (NEGATIVE)
[2024-01-31 18:28] LABS: BENZODIAZEPINES SCREEN,URINE NEGATIVE (NEGATIVE); CANNABINOID SCREEN,URINE NEGATIVE (NEGATIVE); COCAIN SCREEN,URINE NEGATIVE (NEGATIVE); METHADONE URINE SCREEN NEGATIVE (NEGATIVE); OXYCODONE URINE SCREEN NEGATIVE (NEGATIVE); PHENCYCLIDINE SCREEN,URINE NEGATIVE (NEGATIVE); TRICYCLIC ANTIDEPRESSANTS URIN NEGATIVE (NEGATIVE)
[2024-01-31] MEDS: ROCEPHIN 1 GM/50 ML D5W 1 GM/50 ML BAG IV SCH (20:30)
[2024-01-31] MEDS ORDERED: REQUIP PO SCH (21:00)
[2024-02-01 05:03] LABS: BASOPHILS % (AUTO) 0.2 % (0.0-3.0); EOSINOPHILS # (AUTO) 0.1 K/ul (0.0-0.7); HEMATOCRIT 27.1 % (37.0-47.0); HEMOGLOBIN 8.5 g/dl (12.0-16.0); IMMATURE GRANULOCYTE # (AUTO) 0.1 (0.0-1.0); IMMATURE GRANULOCYTE % (AUTO) 0.9 % (0.0-5.0); LYMPHOCYTES # (AUTO) 2.2 K/uL (0.60-3.4); LYMPHOCYTES % (AUTO) 17.3 (10.0-50.0); MEAN CORPUSCULAR HEMOGLOBIN 26.9 pg (27.0-31.0); MEAN CORPUSCULAR HGB CONC 31.4 (31.8-35.4); MEAN CORPUSCULAR VOLUME 85.8 fl (81.0-99.0); MONOCYTES # (AUTO) 0.7 K/uL (0.4-2.0); MONOCYTES % (AUTO) 5.2 (0-10); NEUTROPHILS # (AUTO) 9.4 K/ul (2.0-6.9); NEUTROPHILS % (AUTO) 75.4 % (42.2-75.2); PLATELET COUNT 291 10^3/uL (140-440); RDW COEFFICIENT OF VARIATION 14.2 % (11.6-14.8); RED BLOOD COUNT 3.16 10^6/ul (4.20-5.40); WHITE BLOOD COUNT 12.53 K/ul (4.6-10.2)
[2024-02-01 05:32] LABS: ALANINE AMINOTRANSFERASE 12.3 U/L (0-35); ALBUMIN 3.26 g/dL (3.5-5.0); ALKALINE PHOSPHATASE 167.6 U/L (38-126); ASPARTATE AMINO TRANSFERASE 28.8 U/L (14-36); BILIRUBIN,TOTAL 0.41 mg/dL (0.2-1.3); BLOOD UREA NITROGEN 27.2 mg/dL (7-17); CALCIUM 9.12 mg/dL (8.4-10.2); CARBON DIOXIDE 20.1 mmol/L (22-30.0); CHLORIDE 107.7 mmol/L (98-107); CREATININE 1.2 mg/dL (0.60-1.30); GLUCOSE 253.1 mg/dL (74-106); POTASSIUM 4.32 mmol/L (3.5-5.1); SODIUM 136.4 mmol/L (134.5-145); TOTAL PROTEIN 6.76 g/dL (6.3-8.2)
--- NOTE | 2024-02-01 09:41 | PCM.PROG ---
Date/Time Seen Date Seen by Provider: 02/01/24 Time Seen by Provider: 09:15 Provider Provider: MISTY PEARSON, [facility] Chief Complaint Chief Complaint: CELLULITIS; UNCONTROLLED DM; ELEV WBC; ELEV LACTIC Subjective Subjective: Fever present yesterday. No fever overnight. Feels that pain/swelling to wound on buttock is improved. Drainage present on bedding. Objective Appearance: Positive No Apparent Distress and Alert and Oriented x3 Chest/Lungs: Positive Symmetrical With Equal Breath Sounds and Clear to Auscultation Bilaterally Heart: Positive RRR and Pulses Normal GI/: Positive Soft, Nontender, Bowel Sounds Normal and No Distention Musculoskeletal: Positive Not Examined Neurological: Positive Sensation Intact, Motor intact, Alert and Oriented Additional Findings: R gluteal lesion: erythema and swelling surrounding improved further from yesterday, purulent drainage Vital Signs Vital Signs: Vital Signs: Last 24 Hours 01/31/24 10:00 01/31/24 10:00 01/31/24 11:00 Temperature 102.6 F H Temperature Source Temporal Artery Scan Pulse Rate 84 Respiratory Rate 22 H Blood Pressure 104/61 Blood Pressure Mean 75 Blood Pressure Location Left Arm Blood Pressure Position Supine O2 Sat by Pulse Oximetry 96 Oxygen Delivery Method Room Air Room Air Room Air 01/31/24 12:00 01/31/24 13:00 01/31/24 14:00 Temperature 96.8 F L Temperature Source Temporal Artery Scan Pulse Rate 68 Respiratory Rate 18 Blood Pressure 96/49 L Blood Pressure Mean 64 Blood Pressure Location Left Arm Blood Pressure Position Supine O2 Sat by Pulse Oximetry 93 L Oxygen Delivery Method Room Air Room Air Room Air 01/31/24 14:00 01/31/24 15:00 01/31/24 16:00 Temperature Temperature Source Pulse Rate Respiratory Rate Blood Pressure Blood Pressure Mean Blood Pressure Location Blood Pressure Position O2 Sat by Pulse Oximetry Oxygen Delivery Method Room Air Room Air Room Air 01/31/24 17:00 01/31/24 17:28 01/31/24 18:00 Temperature 97.6 F Temperature Source Temporal Artery Scan Pulse Rate 74 Respiratory Rate 20 Blood Pressure 90/56 L Blood Pressure Mean 67 Blood Pressure Location Left Arm Blood Pressure Position Supine O2 Sat by Pulse Oximetry 96 Oxygen Delivery Method Room Air Room Air Room Air 01/31/24 18:45 01/31/24 19:23 01/31/24 19:26 Temperature Temperature Source Pulse Rate Respiratory Rate Blood Pressure Blood Pressure Mean Blood Pressure Location Blood Pressure Position O2 Sat by Pulse Oximetry Oxygen Delivery Method Room Air Room Air Room Air 01/31/24 20:40 01/31/24 21:00 01/31/24 22:00 Temperature 98.2 F Temperature Source Temporal Artery Scan Pulse Rate 74 Respiratory Rate 18 Blood Pressure 116/75 Blood Pressure Mean 88 Blood Pressure Location Left Arm Blood Pressure Position Supine O2 Sat by Pulse Oximetry 99 Oxygen Delivery Method Room Air Room Air Room Air 01/31/24 23:00 02/01/24 00:00 02/01/24 01:00 Temperature Temperature Source Pulse Rate Respiratory Rate Blood Pressure Blood Pressure Mean Blood Pressure Location Blood Pressure Position O2 Sat by Pulse Oximetry Oxygen Delivery Method Room Air Room Air Room Air 02/01/24 04:00 02/01/24 05:00 02/01/24 05:26 Temperature 98.1 F Temperature Source Temporal Artery Scan Pulse Rate 82 Respiratory Rate 16 Blood Pressure 121/80 Blood Pressure Mean 93 Blood Pressure Location Right Arm Blood Pressure Position Supine O2 Sat by Pulse Oximetry 96 Oxygen Delivery Method Room Air Room Air Room Air 02/01/24 05:27 02/01/24 07:00 02/01/24 07:38 Temperature Temperature Source Pulse Rate Respiratory Rate Blood Pressure Blood Pressure Mean Blood Pressure Location Blood Pressure Position O2 Sat by Pulse Oximetry Oxygen Delivery Method Room Air Room Air Room Air 02/01/24 08:00 02/01/24 09:00 Temperature Temperature Source Pulse Rate Respiratory Rate Blood Pressure Blood Pressure Mean Blood Pressure Location Blood Pressure Position O2 Sat by Pulse Oximetry Oxygen Delivery Method Room Air Room Air Lab Results Lab Results: Lab Results: Last 24 Hours 02/01/24 01/31/24 01/31/24 04:58 20:30 18:00 WBC 12.53 H D RBC 3.16 L Hgb 8.5 L Hct 27.1 L MCV 85.8 MCH 26.9 L MCHC 31.4 L RDW Coeff of Logan 14.2 Plt Count 291 Immature Gran % (Auto) 0.9 Neut % (Auto) 75.4 H Lymph % (Auto) 17.3 Jerome % (Auto) 5.2 Eos % (Auto) 1.0 Baso % (Auto) 0.2 Neut # (Auto) 9.4 H Lymph # (Auto) 2.2 Jerome # (Auto) 0.7 Eos # (Auto) 0.1 Baso # (Auto) 0.0 Immature Gran # (Auto) 0.1 Sodium 136.4 Potassium 4.32 Chloride 107.7 H Carbon Dioxide 20.1 L Anion Gap 12.92 BUN 27.2 H Creatinine 1.20 Estimated GFR (MDRD) 47.00 BUN/Creatinine Ratio 22.66 Glucose 253.1 H D Calcium 9.12 Total Bilirubin 0.41 AST 28.8 ALT 12.3 Alkaline Phosphatase 167.6 H Total Protein 6.76 Albumin 3.26 L Globulin 3.50 Albumin/Globulin Ratio 0.93 Procalcitonin 0.22 H 0.27 H Urine Color Yellow Urine Clarity Turbid Urine pH 5.0 Ur Specific [place] 1.020 Urine Protein 1+ H Urine Glucose (UA) 1+ H Urine Ketones Negative Urine Blood 2+ H Urine Nitrite Negative Urine Bilirubin Negative Urine Urobilinogen 0.2 Ur Leukocyte Esterase 1+ H Urine Microscopic RBC 20-30 Urine Microscopic WBC Tntc Ur Squamous Epith Cells 5-10 Urine Bacteria 2+ Urine Opiates Screen Positive H Ur Oxycodone Screen Negative Urine Methadone Screen Negative Ur Barbiturates Screen Negative U Tricyclic Antidepress Negative Ur Phencyclidine Scrn Negative Ur Amphetamine Screen Positive H U Methamphetamines Scrn Positive H U Benzodiazepines Scrn Negative Urine Cocaine Screen Negative U Cannabinoids Screen Negative Additional Comments Additional Comments: I have independently reviewed and interpreted the labs/EKGs/imaging ordered during this hospital stay. I have reviewed outside records that are available in our EMR that pertain to medical stay including imaging/notes/labs from previous visits. Active Medications Active Medications: Medications Generic Name Dose Route Start Last Admin Trade Name Tamela PRN Reason Stop Dose Admin Acetaminophen 650 mg 01/30/24 14:59 02/01/24 05:12 Acetaminophen 325 Mg Tablet PO 650 mg Q4H PRN Administration Mild Pain Aspirin 81 mg 01/31/24 07:30 02/01/24 09:04 Aspirin 81 Mg Tablet. PO 81 mg DAILYWM2 DARYA Administration Atorvastatin Calcium 80 mg 01/31/24 09:00 02/01/24 09:00 Atorvastatin Calcium 20 Mg Tablet PO 80 mg DAILY DARYA Administration Desvenlafaxine Succinate 50 mg 01/31/24 09:00 02/01/24 08:59 Desvenlafaxine Succinate 50 Mg Tab.Er.24h PO 50 mg DAILY DARYA Administration Ergocalciferol 50,000 unit 05/14/24 09:00 Ergocalciferol (Vitamin D2) 50,000 Unit Capsule PO WEEKLY DARYA Gabapentin 300 mg 01/30/24 21:00 02/01/24 05:28 Gabapentin 300 Mg Capsule PO 300 mg Q8HR DARYA Administration VANCOMYCIN/WATER FOR INJ (PEG) 1.5 gm in 300 mls @ 200 mls/hr 01/30/24 16:30 02/01/24 08:58 Vancomycin 1.5 Gram/300 Ml Premix IV 02/02/24 16:29 200 mls/hr DAILY DARYA Administration Sodium Chloride 1,000 mls @ 75 mls/hr 01/30/24 21:19 01/31/24 20:04 Sodium Chloride IV 75 mls/hr .[id number] DARYA Administration CEFTRIAXONE/D5W 1 GM PREMIX 1 gm in 50 mls @ 100 mls/hr 02/01/24 21:00 Rocephin 1 Gm/50 Ml D5w IV 02/03/24 19:59 BEDTIME DARYA Insulin Glargine 70 unit 01/30/24 21:00 01/31/24 20:03 Insulin Glargine,Hum.Rec.Anlog 100 Units/Ml SUBCUT 70 unit BEDTIME DARYA Administration Insulin Human Regular 0 unit 01/30/24 14:59 02/01/24 06:20 Insulin Regular, Human 100 Unit/Ml (10ml) Vial SUBCUT 10 unit PRN PRN Administration Hyperglycemia Protocol Ketorolac Tromethamine 15 mg 01/30/24 14:59 01/31/24 20:54 Ketorolac Tromethamine 15 Mg/Ml Vial IVP 02/03/24 15:01 15 mg Q6HR PRN Administration Pain Levothyroxine Sodium 200 mcg 01/31/24 06:00 02/01/24 05:28 Levothyroxine Sodium 100 Mcg Tablet PO 200 mcg QDAC2 DARYA Administration Lisinopril 10 mg 01/31/24 09:00 02/01/24 09:00 Lisinopril 10 Mg Tablet PO 10 mg DAILY DARYA Administration Metoprolol Tartrate 50 mg 01/30/24 21:00 02/01/24 09:00 Metoprolol Tartrate 50 Mg Tablet PO 50 mg BID DARYA Administration Ondansetron HCl 4 mg 01/30/24 14:59 Ondansetron Hcl/Pf 4 Mg/2 Ml Sdv IVP Q6H PRN Nausea / Vomiting Polyethylene Glycol 17 gm 01/30/24 16:36 Polyethylene Glycol 17 Gm Powd.Pack PO DAILY PRN Constipation Prazosin HCl 1 mg 01/31/24 09:00 02/01/24 09:00 Prazosin Hcl 1 Mg Capsule PO 1 mg DAILY DARYA Administration Ropinirole HCl 1 mg 01/30/24 21:00 01/31/24 20:04 Ropinirole Hcl 1 Mg Tablet PO 1 mg BEDTIME DARYA Administration Plan Plan: 1. Cellulitis to R gluteal region - purulent drainage still present, erythema improved, wound culture showing growth of gram positive cocci, continue vancomycin, MRSA positive, wash area with soap and water daily, keep open to air 2. Sepsis - Ruled out, blood cultures negative 3. Lactic acidosis - Resolved 4. UTI - rocephin 1G Q24H, urine culture showing gram negative rods - awaiting sensitivity 5. Uncontrolled DM2 - ADA diet, accuchecks qid with SSI, continue home lantus 6. Wound, posterior R foot - follows with wound care, draining serous fluid with ambulation, discussed with nursing staff to wrap with gauze if needed 7. Hypertension - chronic, continue home medications 8. Hyperlipidemia - chronic, continue home medications 9. Anemia - chronic, at baseline level, monitor DVT Prophylaxis: Lovenox Review Statement Review Statement: I have personally discussed and reviewed the patient's visit/currently labs/imaging/decision making with Dr. Smith, my supervising attending. Greater that 50 minutes spent with patient, 50% of the time spent with this patient was devoted to counseling and coordination of care.
[2024-02-01] MEDS: ROCEPHIN 1 GM/50 ML D5W 1 GM/50 ML BAG IV SCH (20:24)
[2024-02-02 07:48] VITALS: RESP 16
[2024-02-02] MEDS: MIRALAX PO PRN (08:06)
[2024-02-02 08:45] LABS: BASOPHILS % (AUTO) 0.1 % (0.0-3.0); EOSINOPHILS # (AUTO) 0.1 K/ul (0.0-0.7); EOSINOPHILS % (AUTO) 1.3 % (0.0-7.0); HEMATOCRIT 32.1 % (37.0-47.0); HEMOGLOBIN 9.4 g/dl (12.0-16.0); IMMATURE GRANULOCYTE # (AUTO) 0.1 (0.0-1.0); LYMPHOCYTES # (AUTO) 2.3 K/uL (0.60-3.4); LYMPHOCYTES % (AUTO) 24.9 (10.0-50.0); MEAN CORPUSCULAR HGB CONC 29.3 (31.8-35.4); MONOCYTES # (AUTO) 0.5 K/uL (0.4-2.0); MONOCYTES % (AUTO) 5.4 (0-10); NEUTROPHILS # (AUTO) 6.2 K/ul (2.0-6.9); NEUTROPHILS % (AUTO) 67.3 % (42.2-75.2); PLATELET COUNT 305 10^3/uL (140-440); RDW COEFFICIENT OF VARIATION 14.3 % (11.6-14.8); RED BLOOD COUNT 3.48 10^6/ul (4.20-5.40); WHITE BLOOD COUNT 9.13 K/ul (4.6-10.2)
[2024-02-02 08:51] LABS: MEAN CORPUSCULAR VOLUME 92.2 fl (81.0-99.0)
[2024-02-02 08:55] LABS: ALANINE AMINOTRANSFERASE 12.3 U/L (0-35); ALBUMIN 3.43 g/dL (3.5-5.0); ALKALINE PHOSPHATASE 177.9 U/L (38-126); ASPARTATE AMINO TRANSFERASE 22.2 U/L (14-36); BILIRUBIN,TOTAL 0.37 mg/dL (0.2-1.3); BLOOD UREA NITROGEN 17.4 mg/dL (7-17); CALCIUM 9.58 mg/dL (8.4-10.2); CARBON DIOXIDE 21.5 mmol/L (22-30.0); CHLORIDE 110.5 mmol/L (98-107); CREATININE 0.79 mg/dL (0.60-1.30); GLUCOSE 122.3 mg/dL (74-106); POTASSIUM 4.54 mmol/L (3.5-5.1); SODIUM 140.7 mmol/L (134.5-145); TOTAL PROTEIN 7.17 g/dL (6.3-8.2)
--- NOTE | 2024-02-02 09:07 | DCSUM ---
Admission Date Admission Date: 01/30/24 Discharge Date Discharge Date: 02/02/24 Admission Diagnosis Admission Diagnosis: 1. Cellulitis to R gluteal region 2. Sepsis 3. Lactic acidosis 4. Uncontrolled DM2 5. Wound, posterior R foot 6. Hypertension 7. Hyperlipidemia 8. Anemia Discharge Diagnosis Discharge Diagnosis: 1. Cellulitis to R gluteal region - Improving, closely follow with PCP 2. Sepsis - Ruled out 3. Lactic acidosis - Resolved 4. UTI - Improving, E.Coli ESBL- 5. Uncontrolled DM2 - Chronic, stable 6. Wound, posterior R foot - Chronic, stable 7. Hypertension - Chronic, stable 8. Hyperlipidemia - Chronic, stable 9. Anemia - Chronic, stable Hospital Provider Hospital Provider: MISTY PEARSON, [facility] [place] Primary Care Physician Primary Care Physician: JUAN MORENO Summary of History and Physical Summary of History and Physical: 53 yo female presents to the ER with concern of abscess to R buttock. Patient has had lesion x 1 week. States it has progressively gotten worse since then. Denies fever that she is aware of. Does report chills/sweats. Significant pain and swelling to area. Unsure if spider bite or insect bite is possibility. Has not sought treatment until today. CT completed in ER showed mod to severe cellulitis without abscess. No drainage present and has not been draining at home. WBC count 22, lactic 3. 2L of fluids given in ER. Admitted to Med/surg observation for treatment of cellulitis. Hospital Course Subjective: During course of stay, patient was treated for cellulitis to R gluteal area with vancomycin. Showed major improvement with redness and swelling. Began draining after 3-4 hours of admission purulent discharge. Wound was cultured and positive for staph aureus. Covered by vancomycin. MRSA swab positive. D/c with clindamycin x 7 days - appropriate per C&S. White count, lactic and procal all trended down and returned to normal limits. Blood cultures were found to be negative. No further fever after 24 hours of antibiotics. Patient was noted to have dark foul smelling urine. UA collected and showed UTI. Urine culture showed growth of e.coli esbl-. Treated with rocephin and d/c with keflex. Blood glucose was high on admission and has been controlled with sliding scale insulin without further episodes of extensive hyperglycemia. No changes made to home medications. Discussed with patient to not try to squeeze or expel further drainage and allow area to heal on its own. Clean with soap and water daily. Wear loose fitting clothing to allow healing and cover with gauze for drainage. Follow-up next week with PCP to monitor healing and wound care the following week. Appearance: Pleasant, No Apparent Distress and Alert HEENT: MMM and Supple CVS: No Murmur, No Rubs and No Gallop Abdomen: Soft, Non-Tender and No Distention Respiratory: No Dyspnea Extremities: No Edema Additional Findings: R gluteal lesion: erythema and swelling surrounding improved further from yesterday, purulent drainage Vital Signs: Most Recent Vital Signs Temperature 98.5 F 02/02/24 05:28 Temperature Source Temporal Artery Scan 02/02/24 05:28 Temperature Source Infrared 01/30/24 12:44 Pulse Rate 74 02/02/24 05:28 Respiratory Rate 16 02/02/24 07:43 Blood Pressure 147/88 H 02/02/24 05:28 Blood Pressure Mean 107 02/02/24 05:28 Blood Pressure Right Arm 120/57 01/30/24 16:00 Blood Pressure Location Right Arm 02/02/24 05:28 Blood Pressure Position Supine 02/02/24 05:28 O2 Sat by Pulse Oximetry 97 02/02/24 05:28 Oxygen Delivery Method Room Air 02/02/24 08:00 Height 5 ft 3 in 02/01/24 10:22 Weight 216 lb 02/01/24 10:22 Telemetry Heart Rate 65 01/28/22 11:25 Telemetry SPO2 100 01/28/22 11:25 Imaging: EXAM: CT ABDOMEN AND PELVIS WITH CONTRAST FINDINGS: Visualized portions of the lower chest included in this examination of the abdomen and pelvis show mild atelectasis with air trapping of the left lower lobe and lingula, secondary to patient positioning. The liver is enlarged, measuring about 20 cm in length, similar to before. No visible liver mass. No biliary tree dilatation. Cholecystectomy, again noted. The pancreas, spleen, and adrenal glands have a normal appearance. The kidneys enhance symmetrically. Mild cortical scarring of both kidneys. No hydronephrosis. The uterus and ovaries have a normal appearance. No visible adnexal mass. The bowel has a normal appearance. No free air or free fluid. Several prominent and mildly enlarged right external iliac chain and right inguinal lymph nodes. For example, right external iliac chain node measures 1.0 cm in short axis dimension. Node adjacent to the common femoral vein measures 1.4 cm. Right inguinal node 0.9 cm. Diffuse skin thickening of the right mid and lower buttock, with diffuse underlying subcutaneous edema and induration. No visible abscess, soft tissue gas, or foreign body. Bone window images show no significant lytic or sclerotic bone lesions. Stable chronic mild to moderate compression fracture of the T12 superior endplate. IMPRESSION: 1. Moderate to severe diffuse cellulitis of the right mid and lower buttock. No visible abscess, soft tissue gas, or foreign body. 2. Mild reactive right inguinal and right pelvic adenopathy. 3. Stable mild hepatomegaly. Lab Results Last 24 Hours: 02/02/24 02/02/24 08:34 08:31 WBC 9.13 RBC 3.48 L Hgb 9.4 L Hct 32.1 L MCV 92.2 D MCH 27.0 MCHC 29.3 L RDW Coeff of Logan 14.3 Plt Count 305 Immature Gran % (Auto) 1.0 Neut % (Auto) 67.3 Lymph % (Auto) 24.9 [place] % (Auto) 5.4 Eos % (Auto) 1.3 Baso % (Auto) 0.1 Neut # (Auto) 6.2 Lymph # (Auto) 2.3 [place] # (Auto) 0.5 Eos # (Auto) 0.1 Baso # (Auto) 0.0 Immature Gran # (Auto) 0.1 Sodium 140.7 Potassium 4.54 Chloride 110.5 H Carbon Dioxide 21.5 L Anion Gap 13.24 BUN 17.4 H Creatinine 0.79 Estimated GFR (MDRD) 76.00 BUN/Creatinine Ratio 22.02 Glucose 122.3 H Calcium 9.58 Total Bilirubin 0.37 AST 22.2 ALT 12.3 Alkaline Phosphatase 177.9 H Total Protein 7.17 Albumin 3.43 L Globulin 3.74 Albumin/Globulin Ratio 0.91 Discharge Instructions Discharge Planning: Discharge Planning > 40 minutes If patient is discharged with left ventricular systolic dysfunction: NA Discharged with a beta darrel? [] If no, why not? [] Discharged with an girma/arb? [] If no, why not? [] DIAGNOSIS: CELLULITIS DIET: DIABETIC ACTIVITY TOLERATED FOLLOW-UP WITH PCP NEXT WEEK FOLLOW-UP WITH WOUND CARE YOU HAVE A WOUND CARE APPOINTMENT SCHEDULED FOR January AT 8:30AM AT [facility]. SHOULD YOU HAVE ANY QUESTIONS YOU CAN REACH THEM AT [phone]. YOU HAVE A FOLLOW UP APT WITH DR. MORENO ON January AT 9AM. IF YOU NEED TO RESCHEDULE, PLEASE NOTIFY THEM. MEDICATIONS: CLINDAMYCIN TAKE 3 TIMES A DAY WITH MEALS X 7 DAYS (FOR CELLULITIS) KEFLEX TAKE TWICE A DAY WITH MEALS X 5 DAYS (FOR UTI) Discharge Medications: Medications at Discharge (Home Meds & RX) blood-glucose meter #1 ea 10/21/19 polyethylene glycol 3350 17 gram/dose oral powder (Miralax) 17 gm PO QDAY PRN constipation #119 grams 10/21/19 blood-glucose meter ##1 02/17/21 pen needle, diabetic 31 gauge x 3/16" (TRUEplus Pen Needle) See Rx Instructions .Route .COMPLEX #100 ea 03/02/21 insulin glargine 100 unit/mL subcutaneous solution (Lantus U-100 Insulin) See Rx Instructions .Route .COMPLEX ##20 06/04/21 insulin lispro 100 unit/mL subcutaneous solution (Humalog U-100 Insulin) See Rx Instructions .Route .COMPLEX #10 mL 06/04/21 blood sugar diagnostic (Blood Glucose Test strips) #120 strips 06/08/21 insulin syringe-needle U-100 1 mL 31 gauge x 5/16" (BD Insulin Syringe Ultra- Fine) See Rx Instructions .Route .COMPLEX #100 ea 06/08/21 lancets 33 gauge #100 ea 06/08/21 atorvastatin 80 mg tablet 80 mg PO DAILY 06/12/21 lisinopril 10 mg tablet 10 mg PO BID 06/12/21 metformin 1,000 mg tablet 1,000 mg PO BID 06/12/21 metoprolol tartrate 50 mg tablet 50 mg PO BID 06/12/21 ergocalciferol (vitamin D2) 1,250 mcg (50,000 unit) capsule 1,250 mcg PO QDAY 01/12/22 gabapentin 300 mg capsule 300 mg PO Q8H 01/12/22 levothyroxine 200 mcg tablet 200 mcg PO QDAY 01/12/22 aspirin 81 mg tablet,delayed release 81 mg PO DAILY 01/30/24 dapagliflozin propanediol 10 mg tablet (Farxiga) 10 mg PO DAILY 01/30/24 desvenlafaxine succinate 50 mg tablet,extended release 24 hr 50 mg PO DAILY 01/30/24 meloxicam 7.5 mg tablet 7.5 mg PO DAILY 01/30/24 prazosin 1 mg capsule 1 mg PO DAILY 01/30/24 ropinirole 1 mg tablet 1 mg PO DAILY 01/30/24 Discharge Plan Discharge Discharge Orders: Discharge Patient (ONCE); Ordered 02/02/24 Ordered By: BROOKE MONROY Activity Restrictions/Additional Instructions: DIAGNOSIS: CELLULITIS DIET: DIABETIC ACTIVITY TOLERATED FOLLOW-UP WITH PCP NEXT WEEK FOLLOW-UP WITH WOUND CARE YOU HAVE A WOUND CARE APPOINTMENT SCHEDULED FOR MONDAY, January AT 8:30AM AT [facility]. SHOULD YOU HAVE ANY QUESTIONS YOU CAN REACH THEM AT [phone]. YOU HAVE A FOLLOW UP APT WITH DR. MORENO ON January AT 9AM. IF YOU NEED TO RESCHEDULE, PLEASE NOTIFY THEM. MEDICATIONS: CLINDAMYCIN TAKE 3 TIMES A DAY WITH MEALS X 7 DAYS (FOR CELLULITIS) KEFLEX TAKE TWICE A DAY WITH MEALS X 5 DAYS (FOR UTI) Instructions: Urinary Tract Infection in Women (GEN), Cellulitis (GEN) Patient Disposition: HOME SELF-CARE Prescriptions: New clindamycin HCl 300 mg capsule 300 mg PO TID 7 Days Qty: 21 0RF cephalexin 500 mg capsule 500 mg PO BID 5 Days Qty: 10 0RF Continued (DME) blood-glucose meter Kit 1 [facility] 1-4XD Qty: 1 0RF Rx Instructions: Use to test blood sugars daily pen needle, diabetic [TRUEplus Pen Needle] 31 gauge x 3/16" needle See Rx Instructions .ROUTE .COMPLEX Qty: 100 0RF Dose Instruction: USE DIRECTED TWICE DAILY WITH BYETTA (MUST LAST 50 DAYS) Rx Instructions: USE DIRECTED TWICE DAILY WITH BYETTA (MUST LAST 50 DAYS) insulin glargine [Lantus U-100 Insulin] 100 unit/mL solution See Rx Instructions .ROUTE .COMPLEX Qty: 20 0RF Dose Instruction: INJECT 70 UNITS SUBCUTANEOUS AT BEDTIME Rx Instructions: INJECT 70 UNITS SUBCUTANEOUS AT BEDTIME insulin lispro [Humalog U-100 Insulin] 100 unit/mL solution See Rx Instructions .ROUTE .COMPLEX Qty: 10 3RF Dose Instruction: INJECT 10 UNITS SUBCUTANEOUS THREE TIMES DAILY Rx Instructions: INJECT 10 UNITS SUBCUTANEOUS THREE TIMES DAILY insulin syringe-needle U-100 [BD Insulin Syringe Ultra-Fine] 1 mL 31 gauge x 5/16 syringe See Rx Instructions .ROUTE .COMPLEX Qty: 100 0RF Dose Instruction: USE DIRECTED THREE TIMES DAILY Rx Instructions: USE DIRECTED THREE TIMES DAILY (DME) lancets 33 gauge misc 1 [facility] TID Qty: 100 0RF Rx Instructions: As directed (DME) Blood Glucose Test Strip 1 [facility] TID Qty: 120 0RF Rx Instructions: As directed 4 x daily. atorvastatin 80 mg tablet 80 mg PO DAILY Rx Instructions: TAKE ONE TABLET DAILY metformin 1,000 mg tablet 1,000 mg PO BID Rx Instructions: TAKE ONE TABLET TWICE DAILY WITH MORNING AND EVENING MEAL GENERIC FOR GLUCOPHAGE lisinopril 10 mg tablet 10 mg PO BID Rx Instructions: TAKE ONE TABLET DAILY metoprolol tartrate 50 mg tablet 50 mg PO BID Rx Instructions: TAKE ONE TABLET TWICE DAILY WITH MEALS GENERIC FOR LOPRESSOR aspirin 81 mg tablet,delayed release (DR/EC) 81 mg PO DAILY Patient Comments: TAKE 1 TABLET BY MOUTH EVERY DAY ropinirole 1 mg tablet 1 mg PO DAILY Patient Comments: TAKE 1 TABLET BY MOUTH AT BEDTIME meloxicam 7.5 mg tablet 7.5 mg PO DAILY Patient Comments: TAKE 1 TABLET BY MOUTH DAILY AFTER MEALS FOR PAIN dapagliflozin propanediol [Farxiga] 10 mg tablet 10 mg PO DAILY desvenlafaxine succinate 50 mg tablet extended release 24 hr 50 mg PO DAILY prazosin 1 mg capsule 1 mg PO DAILY gabapentin 300 mg capsule 300 mg PO Q8H ergocalciferol (vitamin D2) 1,250 mcg (50,000 unit) capsule 1,250 mcg PO QDAY Patient Comments: x 7d ay levothyroxine 200 mcg tablet 200 mcg PO QDAY polyethylene glycol 3350 [Miralax] 17 gram/dose powder 17 gm PO QDAY PRN (Reason: constipation) Qty: 119 0RF (DME) blood-glucose meter Misc See Rx Instructions .ROUTE .MEDSUPPLY Qty: 1 0RF Rx Instructions: As directed Did you review [place] GRADUATE ASSISTANT for ALL controlled substances?: No Discussed opioids are addictive and Narcan is available by prescription or from pharmacy.: No Condition: Fair Referrals: JUAN MORENO [Primary Care Provider] - 02/08/24 9:00 am
[2024-02-02 10:51] VITALS: BP 112/65; PULSE 60; TEMP 97.5
[2024-02-06] MEDS ORDERED: DRISDOL PO SCH (09:00)
== END 2024-02-02 13:40 | disposition home or self-care (01) ==
LOC: MEDSURG B 12:32 → ED 12:32 → MEDSURG B 15:55
PROVIDERS: ADMIT Hospitalist; ATTEND Nurse Practitioner Family

== ENCOUNTER 2024-03-21 12:07 | Observation (INO) ==
[2024-03-21 13:03] LABS: BASOPHILS % (AUTO) 0.3 % (0.0-3.0); EOSINOPHILS # (AUTO) 0.1 K/ul (0.0-0.7); EOSINOPHILS % (AUTO) 1.1 % (0.0-7.0); HEMOGLOBIN 12.3 g/dl (12.0-16.0); IMMATURE GRANULOCYTE # (AUTO) 0.1 (0.0-1.0); IMMATURE GRANULOCYTE % (AUTO) 0.4 % (0.0-5.0); LYMPHOCYTES % (AUTO) 26.3 (10.0-50.0); MEAN CORPUSCULAR HEMOGLOBIN 26.4 pg (27.0-31.0); MEAN CORPUSCULAR HGB CONC 32.4 (31.8-35.4); MEAN CORPUSCULAR VOLUME 81.5 fl (81.0-99.0); MONOCYTES # (AUTO) 0.6 K/uL (0.4-2.0); MONOCYTES % (AUTO) 5.5 (0-10); NEUTROPHILS # (AUTO) 7.6 K/ul (2.0-6.9); NEUTROPHILS % (AUTO) 66.4 % (42.2-75.2); PLATELET COUNT 364 10^3/uL (140-440); RDW COEFFICIENT OF VARIATION 14.4 % (11.6-14.8); RED BLOOD COUNT 4.66 10^6/ul (4.20-5.40); WHITE BLOOD COUNT 11.41 K/ul (4.6-10.2)
[2024-03-21 13:15] LABS: ALANINE AMINOTRANSFERASE 20.8 U/L (0-35); ALBUMIN 4.69 g/dL (3.5-5.0); ALKALINE PHOSPHATASE 173.8 U/L (38-126); ASPARTATE AMINO TRANSFERASE 28.3 U/L (14-36); BILIRUBIN,TOTAL 0.73 mg/dL (0.2-1.3); BLOOD UREA NITROGEN 28.9 mg/dL (7-17); CALCIUM 10.26 mg/dL (8.4-10.2); CARBON DIOXIDE 25.3 mmol/L (22-30.0); CHLORIDE 99.8 mmol/L (98-107); CREATININE 1.65 mg/dL (0.60-1.30); GLUCOSE 191.5 mg/dL (74-106); POTASSIUM 4.04 mmol/L (3.5-5.1); SODIUM 137.5 mmol/L (134.5-145); TOTAL PROTEIN 8.83 g/dL (6.3-8.2)
--- NOTE | 2024-03-21 13:15 | DI ---
EXAM: RIGHT FOOT 3 VIEWS HISTORY: Diabetic ulcer. COMPARISON: Right foot radiographs from 05/18/2023 FINDINGS: No acute fracture or dislocation. Chronic transmetatarsal amputations are unchanged. The re is extensive ankylosis of the tarsal-metatarsal joint spaces and intermetatarsal joint spaces. No bone destruction is appreciated. No soft tissue gas. IMPRESSION: 1. No acute fracture, dislocation or radiographic evidence of osteomyelitis. Given the delayed appea angie of osteomyelitis on radiographs, correlation with MRI would be helpful. 2. Transmetatarsal amputations and bony ankylosis as detailed. .
--- NOTE | 2024-03-21 13:20 | ED.PDOC ---
General ED Provider: Dr. LEANN GRAY MD Chief Complaint: Syncope Stated Complaint: Patient presents to ER from wound care clinic for syncopal episode following debridement for diabetic foot ulcer. Patient reports she has a long history of diabetic neuropathy. States she has had amputation of part of her right foot due to previous infections. States she went to wound care for debridement, had not been seen since December. Says that after debridement she started to feel lightheaded and passed out. When staff returned to check on her she had passed out, cool to touch, and hypotensive. Immediately brought pt to ER for further workup and management. Wound care staff report that there was nothing remarkable about her approximately 2 x 4 cm diabetic foot ulcer. Denied bone to probe per provider. Time Seen by Provider: 03/21/24 12:25 Information Source: Patient and Nurse Primary Care Provider: JUAN MORENO Nursing and Triage Documentation Reviewed and Agree: Yes What is Opioid Naive?: *Opioid Naive implies the patient is not already taking opioids or not chronically receiving opioids on a daily basis. *PRN dosing is not "usually" associated with tolerance. *Patients are at higher risk of over-sedation and aspiration. What is Opioid Tolerant?: *Opioid Tolerance implies less than the expected response to an opioid. *Acquired tolerance is defined by the patient taking 60mg of oral morphine daily (or equianalgesic dose of another opioid) for 1 week or more. *Often associated with chronic pain. *May take more than usual dose to achieve desired pain control. Review of Systems Review Of Systems Constitutional: Reports Diaphoresis All Other Systems: Reviewed and Negative (Except for those listed in the HPI.) [facility] Medical History Arthritis M19.90 - Unspecified osteoarthritis, unspecified site (ICD-10) Anxiety F41.9 - Anxiety disorder, unspecified (ICD-10) Family History Mother Age: 76 Diabetes Cardiac disease Hyperlipidemia Hypothyroidism Hypertension COVID-19 BROTHER No problems noted. BROTHER Age: 55 No problems noted. 19 CHILD Age: 22 No problems noted. Social History Smoking and tobacco status: Former smoker Second hand smoke exposure: Yes Alcohol intake: never Substance use type: does not use Miladys/mosque: SPIRITISM Special miladys needs: No Agree to transfusion: Yes Adopted: No Caregiver/support person: No Foster care: No Household members: children Housing: house Lives independently: Yes Highest education level completed: high school graduate Financial difficulty paying for basics: not applicable service: No group home: No Current occupational status: unemployed Current occupational exposures/hazards: No Pets and animals: Yes Leisure activites: music and reading History of recent travel: No Sexually active: No Do you think of yourself as: straight/heterosexual Current gender identity: female Seatbelt use: always Helmet use: No (N/A) Drives intoxicated or rides with intoxicated bulk driver: No Water heater temperature set < 120 degrees: Yes Working smoke detector in home: Yes Fire extinguisher in home: Yes Carbon monoxide detector in home: Yes Firearms in home: No Surgical History History of appendectomy Z90.49 - Acquired absence of other specified parts of digestive tract (ICD- 10) History of surgery Left carpal tunnel repair Z98.890 - Other specified postprocedural states (ICD-10) History of musculoskeletal system surgery right knee arthroscopy. Amputation all toes right foot. Z98.890 - Other specified postprocedural states (ICD-10) History of tubal ligation Z98.51 - Tubal ligation status (ICD-10) Status post thyroidectomy Z98.890 - Other specified postprocedural states (ICD-10) Status post cholecystectomy Z90.49 - Acquired absence of other specified parts of digestive tract (ICD- 10) Female Reproductive History Menstrual Hx Hysterectomy: No Hx Tubal Ligation: Yes Physical Exam Physical Exam Appearance: Reports Well-appearing, No pain distress and Well-nourished Ill-appearing: None Pain Distress: None Eyes: Reports BIRD and EOMI ENT: Reports Ears normal and Nose normal Neck: Supple Respiratory: Reports Airway patent, Breath sounds clear, Breath sounds equal and Respirations nonlabored Cardiovascular: Reports RRR, Pulses normal, No rub and No murmur GI/: Reports Soft and Nontender Musculoskeletal: Reports Normal strength, ROM intact and No edema Skin: Reports Warm, Dry, Normal color and Other (See attached wound care photo) Neurological: Reports Sensation intact, Motor intact, Alert and Oriented Psychiatric: Reports Affect appropriate and Mood appropriate Course Course 03/21/24 12:57 03/21/24 12:57 Orders, Labs, Meds: Lab Review 03/21/24 03/21/24 12:57 13:32 WBC 11.41 H RBC 4.66 Hgb 12.3 Hct 38.0 MCV 81.5 MCH 26.4 L MCHC 32.4 RDW Coeff of Logan 14.4 Plt Count 364 Immature Gran % (Auto) 0.4 Neut % (Auto) 66.4 Lymph % (Auto) 26.3 [place] % (Auto) 5.5 Eos % (Auto) 1.1 Baso % (Auto) 0.3 Neut # (Auto) 7.6 H Lymph # (Auto) 3.0 [place] # (Auto) 0.6 Eos # (Auto) 0.1 Baso # (Auto) 0.0 Immature Gran # (Auto) 0.1 ESR 66 H Sodium 137.5 Potassium 4.04 Chloride 99.8 Carbon Dioxide 25.3 Anion Gap 16.44 BUN 28.9 H Creatinine 1.65 H Estimated GFR (MDRD) 33.00 BUN/Creatinine Ratio 17.51 Glucose 191.5 H Calcium 10.26 H Total Bilirubin 0.73 AST 28.3 ALT 20.8 Alkaline Phosphatase 173.8 H Total Protein 8.83 H Albumin 4.69 Globulin 4.14 Albumin/Globulin Ratio 1.13 SARS CoV-2 RNA Rapid ROBBY Negative Orders Category Date Time Status ADMIT OBSERVATION [PLACE PATIENT OBSERVATION] .TO ADMISSION 03/21/24 13:27 Active MEDSURG (MONITORED BED) ACTIVITY .Up With Assistance CARE 03/21/24 13:34 Active BLOOD GLUCOSE MONITORING (MED/SURG) 0630,1100,1700,2100 CARE 03/21/24 13:37 Active GIVE HS SNACK 2100 CARE 03/21/24 13:36 Active INTAKE & OUTPUT Q8HR CARE 03/21/24 13:34 Active TELEMETRY MONITORING TELE CARE 03/21/24 13:27 Active VITAL SIGNS Q4HR CARE 03/21/24 13:34 Active ADA 1800 APOLINAR. DIET DIETARY 03/21/24 Dinner Ordered HS SNACK DIETARY 03/21/24 Dinner Ordered Wound care [ED WOUND CARE] .ONCE EMERGENCY 03/21/24 12:25 Active BLOOD CULTURE (ED ONLY) Stat LAB 03/21/24 12:35 Received CBC W/ AUTO DIFF DAILY@0600 LAB 03/22/24 06:00 Ordered CBC W/ AUTO DIFF DAILY@0600 LAB 03/23/24 06:00 Ordered CBC W/ AUTO DIFF Stat LAB 03/21/24 12:57 Completed CMP [COMPREHENSIVE METABOLIC PANEL] Stat LAB 03/21/24 12:57 Completed COMPREHENSIVE METABOLIC PANEL DAILY@0600 LAB 03/22/24 06:00 Ordered COMPREHENSIVE METABOLIC PANEL DAILY@0600 LAB 03/23/24 06:00 Ordered COVID [SARS COV-2 RNA RAPID ROBBY] Stat LAB 03/21/24 13:32 Completed CRP [C-REACTIVE PROTEIN] Stat LAB 03/21/24 12:57 Received ESR Stat LAB 03/21/24 12:57 Completed Acetaminophen [Tylenol] Meds 03/21/24 13:34 Active 650 mg PO Q4H PRN Insulin Lispro [Humalog (3 ml)] Meds 03/21/24 13:37 Active See Protocol SUBCUT PRN PRN Ondansetron HCl/Pf [Zofran 4 mg/2 ml] Meds 03/21/24 13:34 Active 4 mg IVP Q6H PRN Ringers Lactated Solution [Lactated Ringers] 1,000 ml Meds 03/21/24 14:00 Active IV 100 mls/hr Sodium Chloride 0.9% [Sodium Chloride] 1,000 ml Meds 03/21/24 12:25 Discontinued IV BOLUS FOOT, RIGHT 3 VIEWS Stat RADS 03/21/24 12:25 Completed Medications Generic Name Dose Route Start Last Admin Trade Name Freq PRN Reason Stop Dose Admin Acetaminophen 650 mg 03/21/24 13:34 Acetaminophen 325 Mg Tablet PO Q4H PRN Mild Pain Lactated Ringer's 1,000 mls @ 100 mls/hr 03/21/24 14:00 Lactated Ringers IV .Q10H DARYA CEFEPIME 2 GM/D5W 2 gm in 50 mls @ 100 mls/hr 03/21/24 15:30 03/21/24 16:31 Maxipime 2 Gm/50 Ml D5w IV 03/24/24 15:29 100 mls/hr Q12HR DARYA Administration VANCOMYCIN/WATER FOR INJ (PEG) 1.5 gm in 300 mls @ 200 mls/hr 03/21/24 15:30 06/27/24 17:29 Vancomycin 1.5 Gram/300 Ml Premix IV 03/24/24 15:29 200 mls/hr DAILY DARYA Administration Insulin Human Lispro 0 unit 03/21/24 13:37 03/21/24 17:29 Insulin Lispro 100 Unit/Ml Vial (3 Ml) SUBCUT 3 unit PRN PRN Administration Hyperglycemia Protocol Ondansetron HCl 4 mg 03/21/24 13:34 Ondansetron Hcl/Pf 4 Mg/2 Ml Sdv IVP Q6H PRN Nausea / Vomiting Discontinued Medications Generic Name Dose Route Start Last Admin Trade Name Freq PRN Reason Stop Dose Admin Sodium Chloride 1,000 mls @ 1,000 mls/hr 03/21/24 12:25 03/21/24 16:51 Sodium Chloride IV 03/21/24 13:24 [place] [address] Diagnostic Imaging Diagnostic Imaging Report : [id number] Signed Patient: VENICE GUERRERO Acct:[id number] Medical Record: [id number] : 1970 Loc: ED Room/Bed: Age/Sex: 53 / F ADM Status: REG ER Date of Service: 03/21/24 Ordering Physician: LEANN GRAY MD Procedure(s): FOOT, RIGHT 3 VIEWS Report Number(s): [id number] Accession Number(s): [id number] cc: JUAN MORENO ; LEANN GRAY MD EXAM: RIGHT FOOT 3 VIEWS HISTORY: Diabetic ulcer. COMPARISON: Right foot radiographs from 05/18/2023 FINDINGS: No acute fracture or dislocation. Chronic transmetatarsal amputations are unchanged. There is extensive ankylosis of the tarsal- metatarsal joint spaces and intermetatarsal joint spaces. No bone destruction is appreciated. No soft tissue gas. IMPRESSION: 1. No acute fracture, dislocation or radiographic evidence of osteomyelitis. Given the delayed appearance of osteomyelitis on radiographs, correlation with MRI would be helpful. 2. Transmetatarsal amputations and bony ankylosis as detailed. Dictated By: RICARDO AJ Signed By: RICARDO AJ Dictated Date/Time: 03/21/24 1309 Transcribed Date/Time: 03/21/24 1309 Signed Date/Time: 03/21/24 1315 Vital Signs: Temp Pulse Resp BP Pulse Ox 03/21/24 12:17 97.4 F L 81 18 83/59 L 97 13:25 - Spoke with on-call hospitalist (ALMA Zabala) regarding pt status and current workup and management for LEWIS, diabetic foot ulcer. Pt with slightly elevated WBC 11, BUN, Cr elevated, X-rays unremarkable for acute findings, has received 1L NS fluids. Agreed to obs admission for further workup and management for LEWIS, dehydration, and diabetic foot ulcer. Discharge Plan Discharge Patient Disposition: PLACED OBSERVATION Discharge Problem: Acute kidney injury, Diabetic foot ulcer, Acute dehydration Did you review [place] AZURE ARCHITECT for ALL controlled substances?: Not Applicable ED Provider: LEANN GRAY Condition: Good
[2024-03-21] MEDS ORDERED: ZOFRAN 4 MG/2 ML IVP PRN (13:34)
[2024-03-21] MEDS ORDERED: TYLENOL PO PRN (13:34)
--- NOTE | 2024-03-21 13:34 | PCM ---
Date of Service Date Seen by Provider: 03/21/24 Time Seen by Provider: 14:30 Admit Day/Time Admission Date: 03/21/24 Admission Time: 13:27 Reason for Admission Chief Complaint: [facility] Hospital Provider Hospital Provider: Hal[facility]-C, [facility] Primary Care Physician: JUAN MORENO History of Present Illness History of Present Illness: Patient is a 53 year old female with pmhx of DMT2, diabetic foot wound, CAD, hx of meth use, hyperlipidemia, anemia, restless legs syndrome, thyroid disorder, CARIN, who was in wound care clinic getting her diabetic wound debrided when she had a syncopal/near syncopal episode. Patient initially had a normal BP but was found to be hypotensive. In the ER patient was noted to have elevated Cr and BUN from baseline. BP improved with fluids. Pt at baseline. Other labs unremarkable except mildly elevated wbc count. X ray of foot was negative for acute findings. Per wound care clinic, patient hadn't been to clinic in past few weeks due to the provider being out and then patient canceled last week. Wound care instructions obtained from the clinic. They did send for a culture today. Case Discussed With Case Discussed With: Patient's case was discussed with the ER Physicians, Dr. Gray. [facility] Medical History Arthritis M19.90 - Unspecified osteoarthritis, unspecified site (ICD-10) Anxiety F41.9 - Anxiety disorder, unspecified (ICD-10) Surgical History History of appendectomy Z90.49 - Acquired absence of other specified parts of digestive tract (ICD- 10) History of surgery Left carpal tunnel repair Z98.890 - Other specified postprocedural states (ICD-10) History of musculoskeletal system surgery right knee arthroscopy. Amputation all toes right foot. Z98.890 - Other specified postprocedural states (ICD-10) History of tubal ligation Z98.51 - Tubal ligation status (ICD-10) Status post thyroidectomy Z98.890 - Other specified postprocedural states (ICD-10) Status post cholecystectomy Z90.49 - Acquired absence of other specified parts of digestive tract (ICD- 10) Family History Mother Age: 76 Diabetes Cardiac disease Hyperlipidemia Hypothyroidism Hypertension COVID-19 BROTHER No problems noted. BROTHER Age: 55 No problems noted. 19 CHILD Age: 22 No problems noted. Social History Smoking and tobacco status: Former smoker Second hand smoke exposure: Yes Alcohol intake: never Substance use type: does not use Miladys/baptist: RELIGION Special miladys needs: No Agree to transfusion: Yes Adopted: No Caregiver/support person: No Foster care: No Household members: children Housing: house Lives independently: Yes Highest education level completed: high school graduate Financial difficulty paying for basics: not applicable service: No MCFP: No Current occupational status: unemployed Current occupational exposures/hazards: No Pets and animals: Yes Leisure activites: music and reading History of recent travel: No Sexually active: No Do you think of yourself as: straight/heterosexual Current gender identity: female Seatbelt use: always Helmet use: No (N/A) Drives intoxicated or rides with intoxicated electric pile driver operator: No Water heater temperature set < 120 degrees: Yes Working smoke detector in home: Yes Fire extinguisher in home: Yes Carbon monoxide detector in home: Yes Firearms in home: No Allergies Allergies Allergy/AdvReac Type Severity Reaction Status Date / Time No Known Allergies Allergy Verified 03/21/24 12:16 Current Medications Home Medications blood-glucose meter #1 ea 10/21/19 [Rx Confirmed 03/21/24 Last Taken Unknown] polyethylene glycol 3350 17 gram/dose oral powder (Miralax) 17 gm PO QDAY PRN constipation #119 grams 10/21/19 [Rx Confirmed 03/21/24 Last Taken Unknown] blood-glucose meter ##1 02/17/21 [Rx Confirmed 03/21/24 Last Taken Unknown] pen needle, diabetic 31 gauge x 3/16" (TRUEplus Pen Needle) See Rx Instructions .Route .COMPLEX #100 ea 03/02/21 [Rx Confirmed 03/21/24 Last Taken Unknown] insulin glargine 100 unit/mL subcutaneous solution (Lantus U-100 Insulin) See Rx Instructions .Route .COMPLEX ##20 06/04/21 [Rx Confirmed 03/21/24 Last Taken Unknown] insulin lispro 100 unit/mL subcutaneous solution (Humalog U-100 Insulin) See Rx Instructions .Route .COMPLEX #10 mL 06/04/21 [Rx Confirmed 03/21/24 Last Taken Unknown] blood sugar diagnostic (Blood Glucose Test strips) #120 strips 06/08/21 [Rx Confirmed 03/21/24 Last Taken Unknown] insulin syringe-needle U-100 1 mL 31 gauge x 5/16" (BD Insulin Syringe Ultra- Fine) See Rx Instructions .Route .COMPLEX #100 ea 06/08/21 [Rx Confirmed 03/21/24 Last Taken Unknown] lancets 33 gauge #100 ea 06/08/21 [Rx Confirmed 03/21/24 Last Taken Unknown] atorvastatin 80 mg tablet 80 mg PO DAILY 06/12/21 [History Confirmed 03/21/[address] Taken Unknown] lisinopril 10 mg tablet 10 mg PO DAILY 06/12/21 [History Confirmed 03/21/24 Last Taken Unknown] metformin 1,000 mg tablet 1,000 mg PO BID 06/12/21 [History Confirmed 03/21/24 Last Taken Unknown] metoprolol tartrate 50 mg tablet 50 mg PO BID 06/12/21 [History Confirmed 03/21/24 Last Taken Unknown] ergocalciferol (vitamin D2) 1,250 mcg (50,000 unit) capsule 1,250 mcg PO WEEKLY 01/12/22 [History Confirmed 03/21/24 Last Taken 03/17/24] gabapentin 300 mg capsule 600 mg PO Q8H 01/12/22 [History Confirmed 03/21/24 Last Taken Unknown] levothyroxine 200 mcg tablet 200 mcg PO QDAY 01/12/22 [History Confirmed 03/21/24 Last Taken Unknown] aspirin 81 mg tablet,delayed release 81 mg PO DAILY 01/30/24 [History Confirmed 03/21/24 Last Taken Unknown] dapagliflozin propanediol 10 mg tablet (Farxiga) 10 mg PO DAILY 01/30/24 [History Confirmed 03/21/24 Last Taken Unknown] desvenlafaxine succinate 50 mg tablet,extended release 24 hr 50 mg PO DAILY 01/30/24 [History Confirmed 03/21/24 Last Taken Unknown] meloxicam 7.5 mg tablet 7.5 mg PO DAILY 01/30/24 [History Confirmed 03/21/24 Last Taken Unknown] prazosin 1 mg capsule 1 mg PO BEDTIME 01/30/24 [History Confirmed 03/21/24 Last Taken Unknown] ropinirole 1 mg tablet 1 mg PO DAILY 01/30/24 [History Confirmed 03/21/24 Last Taken Unknown] Home Acetaminophen (Acetaminophen 325 Mg Tablet) 650 mg PO Q4H PRN PRN Reason: Mild Pain Aspirin (Aspirin 81 Mg Tablet.) 81 mg PO DAILYWM2 COUNTS INCLUDE 234 BEDS AT THE [facility] Last Admin: 03/22/24 08:11 Dose: 81 mg Atorvastatin Calcium (Atorvastatin Calcium 20 Mg Tablet) 80 mg PO DAILY COUNTS INCLUDE 234 BEDS AT THE [facility] Last Admin: 03/22/24 08:12 Dose: 80 mg Desvenlafaxine Succinate (Desvenlafaxine Succinate 50 Mg Tab.Er.24h) 50 mg PO DAILY COUNTS INCLUDE 234 BEDS AT THE [facility] Last Admin: 03/22/24 08:12 Dose: 50 mg Empagliflozin (Empagliflozin 10 Mg Tablet) 25 mg PO DAILY COUNTS INCLUDE 234 BEDS AT THE [facility] Last Admin: 03/22/24 08:11 Dose: 25 mg Gabapentin (Gabapentin 300 Mg Capsule) 600 mg PO Q8HR COUNTS INCLUDE 234 BEDS AT THE [facility] Last Admin: 03/22/24 12:47 Dose: 600 mg Lactated Ringer's (Lactated Ringers) 1,000 mls @ 100 mls/hr IV .Q10H COUNTS INCLUDE 234 BEDS AT THE [facility] Last Admin: 03/22/24 06:13 Dose: 100 mls/hr CEFEPIME 2 GM/D5W (Maxipime 2 Gm/50 Ml D5w) 2 gm in 50 mls @ 100 mls/hr IV Q12HR COUNTS INCLUDE 234 BEDS AT THE [facility] Stop: 03/24/24 15:29 Last Admin: 03/22/24 12:47 Dose: 100 mls/hr VANCOMYCIN/WATER FOR INJ (PEG) (Vancomycin 1.25 Gm/250 Ml Bag) 1.25 gm in 250 mls @ 250 mls/hr IV DAILY COUNTS INCLUDE 234 BEDS AT THE [facility] Stop: 03/25/24 08:59 Insulin Glargine (Insulin Glargine,Hum.Rec.Anlog 100 Units/Ml) 70 unit SUBCUT BEDTIME COUNTS INCLUDE 234 BEDS AT THE [facility] Last Admin: 03/21/24 23:28 Dose: 70 unit Insulin Human Lispro (Insulin Lispro 100 Unit/Ml Vial (3 Ml)) 0 unit SUBCUT PRN PRN; Protocol PRN Reason: Hyperglycemia Last Admin: 03/21/24 21:22 Dose: 7 unit Levothyroxine Sodium (Levothyroxine Sodium 100 Mcg Tablet) 200 mcg PO QDAC2 COUNTS INCLUDE 234 BEDS AT THE [facility] Last Admin: 03/22/24 08:12 Dose: 200 mcg Lisinopril (Lisinopril 10 Mg Tablet) 10 mg PO DAILY COUNTS INCLUDE 234 BEDS AT THE [facility] Last Admin: 03/22/24 08:12 Dose: 10 mg Metoprolol Tartrate (Metoprolol Tartrate 50 Mg Tablet) 50 mg PO BID COUNTS INCLUDE 234 BEDS AT THE [facility] Last Admin: 03/22/24 08:11 Dose: 50 mg Ondansetron HCl (Ondansetron Hcl/Pf 4 Mg/2 Ml Sdv) 4 mg IVP Q6H PRN PRN Reason: Nausea / Vomiting Prazosin HCl (Prazosin Hcl 1 Mg Capsule) 1 mg PO BEDTIME DARYA Last Admin: 03/21/24 23:27 Dose: 1 mg Ropinirole HCl (Ropinirole Hcl 1 Mg Tablet) 1 mg PO BEDTIME DARYA Discontinued Medications Gabapentin (Gabapentin 300 Mg Capsule) 600 mg PO Q8H COUNTS INCLUDE 234 BEDS AT THE [facility] Last Admin: 03/22/24 06:13 Dose: 600 mg Sodium Chloride (Sodium Chloride) 1,000 mls @ 1,000 mls/hr IV BOLUS STA Stop: 03/21/24 13:24 Last Admin: 03/21/24 16:51 Dose: Not Given VANCOMYCIN/WATER FOR INJ (PEG) (Vancomycin 1.5 Gram/300 Ml Premix) 1.5 gm in 300 mls @ 200 mls/hr IV DAILY DARYA Stop: 03/24/24 15:29 Last Admin: 03/21/24 17:29 Dose: 200 mls/hr Lactated Ringer's (Lactated Ringers) 500 mls @ 500 mls/hr IV BOLUS ONE Stop: 03/22/24 12:56 Last Admin: 03/22/24 12:05 Dose: 500 mls/hr Insulin Human Lispro (Insulin Lispro 100 Unit/Ml Vial (3 Ml)) 12 unit SUBCUT ONCE STA Stop: 03/22/24 11:54 Last Admin: 03/22/24 12:05 Dose: 12 unit Non-Formulary Medication (Dapagliflozin Propanediol [Farxiga]) 10 mg PO DAILY COUNTS INCLUDE 234 BEDS AT THE [facility] Ropinirole HCl (Ropinirole Hcl 1 Mg Tablet) 1 mg PO DAILY COUNTS INCLUDE 234 BEDS AT THE [facility] Last Admin: 03/21/24 23:27 Dose: 1 mg Opioid Naive vs. Tolerant Does Patient Take Opioids?: No Is Patient Opioid Naive?: Yes What is Opioid Naive?: *Opioid Naive implies the patient is not already taking opioids or not chronically receiving opioids on a daily basis. *PRN dosing is not "usually" associated with tolerance. *Patients are at higher risk of over-sedation and aspiration. Is Patient Opioid Tolerant?: No What is Opioid Tolerant?: *Opioid Tolerance implies less than the expected response to an opioid. *Acquired tolerance is defined by the patient taking 60mg of oral morphine daily (or equianalgesic dose of another opioid) for 1 week or more. *Often associated with chronic pain. *May take more than usual dose to achieve desired pain control. Review of Systems Head: Reports Normocephalic and Atraumatic Cardiovascular: Denies Chest pain, Chest Pressure or Edema Respiratory: Denies Cough or Shortness of air Gastrointestinal: Denies Nausea, Vomiting, Diarrhea or Abdominal pain Genitourinary: Denies Dysuria or Frequency Neurological: Reports Dizziness, Syncope and Weakness Psychiatric: Reports Depression and Anxiety; Denies Suicidal Physical examination Most Recent Vital Signs: Most Recent Vital Signs Temperature 97.4 F L 03/21/24 12:17 Temperature Source Oral 03/21/24 12:17 Pulse Rate 81 03/21/24 12:17 Respiratory Rate 18 03/21/24 12:17 Blood Pressure 83/59 L 03/21/24 12:17 O2 Sat by Pulse Oximetry 97 03/21/24 12:17 Height 5 ft 3.5 in 03/21/24 12:17 Weight 212 lb 8.41 oz 03/21/24 12:17 Telemetry Heart Rate 65 01/28/22 11:25 Telemetry SPO2 100 01/28/22 11:25 Appearance: Positive No Apparent Distress and Alert and Oriented x3 Skin: Positive [place], Warm and Good Turgor HEENT: Positive Normocephalic and Atraumatic Neck: Positive Supple and Midline Trachea Chest/Lungs: Positive Clear to Auscultation Bilaterally; Negative Rales, Rhonci or Wheezes Heart: Positive RRR GI/: Positive Soft, Nontender, Bowel Sounds Normal and No Distention Extremities: Negative Edema Neurological: Positive Cranial Nerves Intact, Alert, Oriented and Muscle Strength 5/5 in Upper and Lower Extremities Bilaterally Psychiatric: Positive Oriented x4 and Other (+anxious, agitated) Additional Findings: Right dorsal foot - Diabetic foot wound stage II-III s/p debridement today with mild drainage noted. No significant surrounding erythema or edema noted. Labs This Visit Labs This Visit: Labs This Visit 03/21/24 12:57 WBC 11.41 H RBC 4.66 Hgb 12.3 Hct 38.0 MCV 81.5 MCH 26.4 L MCHC 32.4 RDW Coeff of [place] 14.4 Plt Count 364 Immature Gran % (Auto) 0.4 Neut % (Auto) 66.4 Lymph % (Auto) 26.3 [place] % (Auto) 5.5 Eos % (Auto) 1.1 Baso % (Auto) 0.3 Neut # (Auto) 7.6 H Lymph # (Auto) 3.0 [place] # (Auto) 0.6 Eos # (Auto) 0.1 Baso # (Auto) 0.0 Immature Gran # (Auto) 0.1 Sodium 137.5 Potassium 4.04 Chloride 99.8 Carbon Dioxide 25.3 Anion Gap 16.44 BUN 28.9 H Creatinine 1.65 H Estimated GFR (MDRD) 33.00 BUN/Creatinine Ratio 17.51 Glucose 191.5 H Calcium 10.26 H Total Bilirubin 0.73 AST 28.3 ALT 20.8 Alkaline Phosphatase 173.8 H Total Protein 8.83 H Albumin 4.69 Globulin 4.14 Albumin/Globulin Ratio 1.13 Imaging Imaging: EXAM: RIGHT FOOT 3 VIEWS HISTORY: Diabetic ulcer. COMPARISON: Right foot radiographs from 05/18/2023 FINDINGS: No acute fracture or dislocation. Chronic transmetatarsal amputations are unchanged. There is extensive ankylosis of the tarsal- metatarsal joint spaces and intermetatarsal joint spaces. No bone destruction is appreciated. No soft tissue gas. IMPRESSION: 1. No acute fracture, dislocation or radiographic evidence of osteomyelitis. Given the delayed appearance of osteomyelitis on radiographs, correlation with MRI would be helpful. 2. Transmetatarsal amputations and bony ankylosis as detailed. Review Statement Review Statement: I have independently reviewed and interpreted the labs/EKGs/imaging that were ordered by the ER provider. I have reviewed all outside records that are available currently in our EMR including imaging/notes/labs from previous visits. Plan Plan: 1. LEWIS, stage I - Pt received bolus in ED. Will cont w/ LR at 100 ml/hr. 2. Near syncopal event - In setting of dehydration, hypotension, and during debridement procedure. Tele. Will check orthostatics once BP is improved consistently. Could've had a vasovagal event during procedure. 3. Diabetic foot wound, stage II-III following debridement today - Wound culture from the clinic pending. Will cover broadly and work up for osteo. MRI ordered. 4. DMT2, insulin dependent - Diabetic diet, cont home meds, hold metformin, accuchecks achs, humalog sliding scale 5. Hypertension - Hold antihypertensives for now 6. Hyperlipidemia - Cont home meds 7. Hypothyroidism - Cont home meds 8. Restless legs syndrome - Cont home meds DVT Prophylaxis: Lovenox Time Spent: Greater than 80 minutes spent with patient, 50% of the time spent with this patient was devoted to counseling and coordination of care. Advanced [facility] Plannin minutes spent discussing advance care planning. Admit to: Obs Discussed Plan of Care with Dr. Mingo Smith.
[2024-03-21 13:39] LABS: ERYTHROCYTE SEDIMENTATION RATE 66 mm/hr (0-20)
[2024-03-21 14:02] LABS: SARS COV-2 RNA RAPID NAAT NEGATIVE (NEGATIVE)
[2024-03-21 16:10] VITALS: BMI 36.8
[2024-03-21] MEDS: MAXIPIME 2 GM/50 ML D5W 2 GM/50 ML BAG IV SCH (16:31)
[2024-03-21] MEDS: SODIUM CHLORIDE 1,000 ML IV STA (16:51)
[2024-03-21] MEDS: VANCOMYCIN 1.5 GRAM/300 ML PREMIX 1.5 GM/300 ML BAG IV SCH (17:29)
[2024-03-21] MEDS: HUMALOG (3 ML) SUBCUT PRN (17:29)
[2024-03-21] MEDS: LACTATED RINGERS 1,000 ML IV SCH (19:35)
[2024-03-21] MEDS: MINIPRESS PO SCH (23:27)
[2024-03-21] MEDS: REQUIP PO SCH (23:27)
[2024-03-21] MEDS: LOPRESSOR PO SCH (23:27)
[2024-03-21] MEDS: NEURONTIN PO SCH (23:27)
[2024-03-21] MEDS: LANTUS SUBCUT SCH (23:28)
[2024-03-22 06:58] LABS: BASOPHILS % (AUTO) 0.4 % (0.0-3.0); EOSINOPHILS # (AUTO) 0.1 K/ul (0.0-0.7); EOSINOPHILS % (AUTO) 1.6 % (0.0-7.0); HEMATOCRIT 32.5 % (37.0-47.0); HEMOGLOBIN 10.5 g/dl (12.0-16.0); IMMATURE GRANULOCYTE % (AUTO) 0.2 % (0.0-5.0); LYMPHOCYTES # (AUTO) 2.2 K/uL (0.60-3.4); LYMPHOCYTES % (AUTO) 26.1 (10.0-50.0); MEAN CORPUSCULAR HEMOGLOBIN 26.4 pg (27.0-31.0); MEAN CORPUSCULAR HGB CONC 32.3 (31.8-35.4); MEAN CORPUSCULAR VOLUME 81.9 fl (81.0-99.0); MONOCYTES # (AUTO) 0.4 K/uL (0.4-2.0); MONOCYTES % (AUTO) 5.1 (0-10); NEUTROPHILS # (AUTO) 5.5 K/ul (2.0-6.9); NEUTROPHILS % (AUTO) 66.6 % (42.2-75.2); PLATELET COUNT 255 10^3/uL (140-440); RDW COEFFICIENT OF VARIATION 14.6 % (11.6-14.8); RED BLOOD COUNT 3.97 10^6/ul (4.20-5.40); WHITE BLOOD COUNT 8.31 K/ul (4.6-10.2)
[2024-03-22 07:10] LABS: ALBUMIN 3.76 g/dL (3.5-5.0); ASPARTATE AMINO TRANSFERASE 32.6 U/L (14-36); BILIRUBIN,TOTAL 0.59 mg/dL (0.2-1.3); BLOOD UREA NITROGEN 29.4 mg/dL (7-17); CALCIUM 8.87 mg/dL (8.4-10.2); CHLORIDE 104.1 mmol/L (98-107); CREATININE 1.57 mg/dL (0.60-1.30); GLUCOSE 294.7 mg/dL (74-106); POTASSIUM 4.42 mmol/L (3.5-5.1); SODIUM 133.9 mmol/L (134.5-145); TOTAL PROTEIN 7.15 g/dL (6.3-8.2)
[2024-03-22] MEDS: ASPIRIN EC PO SCH (08:11)
[2024-03-22] MEDS: JARDIANCE PO SCH (08:11)
[2024-03-22] MEDS: PRISTIQ ER PO SCH (08:12)
[2024-03-22] MEDS: LIPITOR PO SCH (08:12)
[2024-03-22] MEDS: ZESTRIL PO SCH (08:12)
[2024-03-22] MEDS: SYNTHROID PO SCH (08:12)
[2024-03-22] MEDS ORDERED: NON-FORMULARY MEDICATION (Dapagliflozin Propanediol [Farxiga] 10 mg tablet) PO SCH (09:00)
[2024-03-22] MEDS ORDERED: LACTATED RINGERS 1,000 ML IV ONE (11:53)
--- NOTE | 2024-03-22 12:02 | MRI ---
EXAM: MRI OF THE RIGHT ANKLE/HINDFOOT WITHOUT AND WITH INTRAVENOUS CONTRAST HISTORY: Diabetic ulcer along the dorsal foot. COMPARISON: Right foot radiographs 03/21/2024. TECHNIQUE: Routine multiplanar and multisequence MR imaging of the right ankle before and after the intravenous administration of 20 mL of Clariscan. The forefoot was incompletely imaged due to the pr otocol employed. FINDINGS: Status post transmetatarsal amputation. There is subcutaneous edema and enhancement along the distal to plantar aspect of the lower extremity stump consistent with cellulitis with soft tissue ulceratio n most extensive along the distal plantar aspect of the through fifth metatarsal remnants. Enhancing inflammatory phlegmon deep to the soft tissue wound with regions of granulation tissue and scarring without a definite drainable fluid collection/abscess. Ankylosis at the second through fifth tarsometatarsal joints and between the third through fifth meta tarsal bases. There is marrow edema and enhancement with cortical irregularity involving the distal portion of the fourth and fifth metatarsal remnants consistent with reactive marrow edema and suspect ed early changes of acute osteomyelitis at the distal tip of the fourth and fifth metatarsal remnants . Low-level reactive marrow edema within the third metatarsal remnant. Muscle atrophy and intramusc ular edema related to sequela denervation and/or myositis. Degenerative changes of the mid foot and ankle/hind-foot with small subchondral cyst within the talar dome. Marked Achilles tendinosis with regions of fusiform thickening and alternating regions of thi nning/attenuation which could represent sequela of postoperative change/Z plasty and/or chronic-appea ring partial-thickness tear at that site with most pronounced thinning and a position 6.0 cm proximal to the level of the calcaneal attachment. No fluid gap at that level. Undulation of the fibers. The anterior extensor tendons are intact. Mild posterior tibial tendinosis and tenosynovitis. Flexo r digitorum and flexor hallicus longus tendons are intact. Marked peroneus brevis tendinosis with pa rtial-thickness/split tear of the tendon and minimal tenosynovitis. Peroneus longus tendon is intact . Intact supporting ligaments of the syndesmosis. Chronic sprains with scarring of the anterior/plant operations manager ior talofibular and calcaneofibular ligaments as well as the deltoid ligament. Small joint effusions of the ankle/hind-foot nonspecific without reactive marrow edema or erosive change. No enhancing so ft tissue mass or enhancing marrow lesion. IMPRESSION: Status post transmetatarsal amputation. Cellulitis and soft tissue ulceration along the plantar to distal aspect of the stump most pronounced at the level of the fourth and fifth metatarsal remnants. Inflammatory phlegmon without drainable a bscess. Reactive marrow edema along the distal third through fifth metatarsal remnants deep to the soft tissu e ulcer. Very early changes of acute osteomyelitis are not excluded at the distal tip of the fourth and fifth metatarsal remnants and follow-up imaging could be considered. Marked Achilles tendinosis with postoperative change and/or chronic partial-thickness tear as detaile d above. Additional chronic findings as described.
[2024-03-22] MEDS: LACTATED RINGERS 500 ML IV ONE (12:05)
[2024-03-22] MEDS: HUMALOG (3 ML) SUBCUT STA ×2 (12:05→18:41)
[2024-03-22] MEDS: NEURONTIN PO SCH (12:47)
--- NOTE | 2024-03-22 13:45 | PCM.PROG ---
Date/Time Seen Date Seen by Provider: 03/22/24 Time Seen by Provider: 09:30 Provider Provider: RK DOMINGUEZ PA-C, [facility] Chief Complaint Chief Complaint: LEWIS Subjective Subjective: Renal function mildly improved today. Awaiting MRI. BP has been improved as well until this morning 1000 vitals patient was hypotensive. Asymptomatic with it ho wever, no dizziness or syncope. Improved after fluids. Pt has been very anxious and agitated with staff. Wound culture growing gram positive cocci. Objective Appearance: Positive No Apparent Distress and Alert and Oriented x3 Chest/Lungs: Positive Clear to Auscultation Bilaterally; Negative Rales, Rhonci or Wheezes Heart: Positive RRR GI/: Positive Soft, Nontender, Bowel Sounds Normal and No Distention Neurological: Positive Cranial Nerves Intact, Alert and Oriented Additional Findings: Right foot - s/p toe amputations. Dorsal foot with diabetic foot ulcer, stage II-III, irregularly shaped following debridement on 03/21. No significant erythema or swelling surrouding wound. Vital Signs Vital Signs: Vital Signs: Last 24 Hours 03/21/24 15:43 03/21/24 15:43 03/21/24 15:50 Temperature 97.2 F L Temperature Source Temporal Artery Scan Pulse Rate 80 Respiratory Rate 18 Blood Pressure Blood Pressure Mean Blood Pressure Left Arm 85/50 Blood Pressure Location Blood Pressure Position Supine O2 Sat by Pulse Oximetry 95 Oxygen Delivery Method Room Air Room Air Height 5 ft 3.5 in Weight 211 lb Telemetry Type Remote Telemetry Telemetry Monitoring Started Telemetry Heart Rate 85 EKG SC Interval 0.13 EKG QRS Interval 0.05 L Telemetry Strip Reading SR 03/21/24 16:00 03/21/24 17:00 03/21/24 18:00 Temperature Temperature Source Pulse Rate Respiratory Rate Blood Pressure Blood Pressure Mean Blood Pressure Left Arm Blood Pressure Location Blood Pressure Position O2 Sat by Pulse Oximetry Oxygen Delivery Method Room Air Room Air Room Air Height Weight Telemetry Type Telemetry Monitoring Telemetry Heart Rate EKG SC Interval EKG QRS Interval Telemetry Strip Reading 03/21/24 18:00 03/21/24 19:00 03/21/24 19:00 Temperature 97.6 F Temperature Source Temporal Artery Scan Pulse Rate 75 Respiratory Rate 16 Blood Pressure 124/81 Blood Pressure Mean 95 Blood Pressure Left Arm Blood Pressure Location Right Arm Blood Pressure Position O2 Sat by Pulse Oximetry 98 Oxygen Delivery Method Room Air Room Air Height Weight Telemetry Type Remote Telemetry Telemetry Monitoring Continues Telemetry Heart Rate 76 EKG SC Interval 0.18 EKG QRS Interval 0.08 Telemetry Strip Reading SR 03/21/24 20:00 03/21/24 20:00 03/21/24 21:00 Temperature Temperature Source Pulse Rate Respiratory Rate 18 Blood Pressure Blood Pressure Mean Blood Pressure Left Arm Blood Pressure Location Blood Pressure Position O2 Sat by Pulse Oximetry Oxygen Delivery Method Room Air Room Air Room Air Height Weight Telemetry Type Telemetry Monitoring Telemetry Heart Rate EKG SC Interval EKG QRS Interval Telemetry Strip Reading 03/21/24 21:02 03/21/24 22:00 03/21/24 23:00 Temperature 96.5 F L Temperature Source Temporal Artery Scan Pulse Rate 80 Respiratory Rate 16 Blood Pressure 134/89 Blood Pressure Mean 104 Blood Pressure Left Arm Blood Pressure Location Right Arm Blood Pressure Position Supine O2 Sat by Pulse Oximetry 98 Oxygen Delivery Method Room Air Room Air Room Air Height Weight Telemetry Type Telemetry Monitoring Telemetry Heart Rate EKG SC Interval EKG QRS Interval Telemetry Strip Reading 03/22/24 00:00 03/22/24 00:57 03/22/24 00:57 Temperature Temperature Source Pulse Rate Respiratory Rate Blood Pressure Blood Pressure Mean Blood Pressure Left Arm Blood Pressure Location Blood Pressure Position O2 Sat by Pulse Oximetry Oxygen Delivery Method Room Air Room Air Height Weight Telemetry Type Remote Telemetry Telemetry Monitoring Continues Telemetry Heart Rate 77 EKG SC Interval 0.13 EKG QRS Interval 0.06 Telemetry Strip Reading sinus rhythm 03/22/24 02:00 03/22/24 02:00 03/22/24 03:00 Temperature 97.2 F L Temperature Source Temporal Artery Scan Pulse Rate 74 Respiratory Rate 17 Blood Pressure 137/78 Blood Pressure Mean 97 Blood Pressure Left Arm Blood Pressure Location Right Arm Blood Pressure Position Supine O2 Sat by Pulse Oximetry 98 Oxygen Delivery Method Room Air Room Air Room Air Height Weight Telemetry Type Telemetry Monitoring Telemetry Heart Rate EKG SC Interval EKG QRS Interval Telemetry Strip Reading 03/22/24 03:55 03/22/24 05:00 03/22/24 05:35 Temperature 97.5 F L Temperature Source Pulse Rate 79 Respiratory Rate 16 Blood Pressure 142/78 H Blood Pressure Mean 99 Blood Pressure Left Arm Blood Pressure Location Right Arm Blood Pressure Position Supine O2 Sat by Pulse Oximetry 99 Oxygen Delivery Method Room Air Room Air Room Air Height Weight Telemetry Type Telemetry Monitoring Telemetry Heart Rate EKG SC Interval EKG QRS Interval Telemetry Strip Reading 03/22/24 06:00 03/22/24 07:00 03/22/24 07:00 Temperature Temperature Source Pulse Rate Respiratory Rate Blood Pressure Blood Pressure Mean Blood Pressure Left Arm Blood Pressure Location Blood Pressure Position O2 Sat by Pulse Oximetry Oxygen Delivery Method Room Air Room Air Height Weight Telemetry Type Remote Telemetry Telemetry Monitoring Continues Telemetry Heart Rate 69 EKG SC Interval 0.14 EKG QRS Interval 0.07 Telemetry Strip Reading NSR 03/22/24 07:15 03/22/24 08:00 03/22/24 08:59 Temperature Temperature Source Pulse Rate Respiratory Rate Blood Pressure Blood Pressure Mean Blood Pressure Left Arm Blood Pressure Location Blood Pressure Position O2 Sat by Pulse Oximetry Oxygen Delivery Method Room Air Room Air Room Air Height Weight Telemetry Type Telemetry Monitoring Telemetry Heart Rate EKG SC Interval EKG QRS Interval Telemetry Strip Reading 03/22/24 09:44 03/22/24 09:55 03/22/24 11:00 Temperature 97.2 F L Temperature Source Tympanic Pulse Rate 67 Respiratory Rate 18 Blood Pressure 85/48 L Blood Pressure Mean 60 Blood Pressure Left Arm Blood Pressure Location Left Arm Blood Pressure Position Supine O2 Sat by Pulse Oximetry 96 Oxygen Delivery Method Room Air Room Air Room Air Height Weight Telemetry Type Telemetry Monitoring Telemetry Heart Rate EKG SC Interval EKG QRS Interval Telemetry Strip Reading 03/22/24 11:15 03/22/24 11:53 03/22/24 12:37 Temperature Temperature Source Pulse Rate 68 Respiratory Rate Blood Pressure 81/46 L Blood Pressure Mean 57 Blood Pressure Left Arm Blood Pressure Location Right Arm Blood Pressure Position Supine O2 Sat by Pulse Oximetry Oxygen Delivery Method Room Air Room Air Height Weight Telemetry Type Telemetry Monitoring Telemetry Heart Rate EKG SC Interval EKG QRS Interval Telemetry Strip Reading PATIENT REFUSED 03/22/24 12:44 03/22/24 13:40 03/22/24 13:40 Temperature 97.2 F L Temperature Source Tympanic Pulse Rate 70 Respiratory Rate 18 Blood Pressure 112/68 Blood Pressure Mean 82 Blood Pressure Left Arm Blood Pressure Location Left Arm Blood Pressure Position Supine O2 Sat by Pulse Oximetry 99 Oxygen Delivery Method Room Air Room Air Room Air Height Weight Telemetry Type Telemetry Monitoring Telemetry Heart Rate EKG SC Interval EKG QRS Interval Telemetry Strip Reading Lab Results Lab Results: Lab Results: Last 24 Hours 03/22/24 03/21/24 03/21/24 06:20 13:32 12:57 WBC 8.31 RBC 3.97 L Hgb 10.5 L Hct 32.5 L MCV 81.9 MCH 26.4 L MCHC 32.3 RDW Coeff of Logan 14.6 Plt Count 255 Immature Gran % (Auto) 0.2 Neut % (Auto) 66.6 Lymph % (Auto) 26.1 Cecil % (Auto) 5.1 Eos % (Auto) 1.6 Baso % (Auto) 0.4 Neut # (Auto) 5.5 Lymph # (Auto) 2.2 Cecil # (Auto) 0.4 Eos # (Auto) 0.1 Baso # (Auto) 0.0 Immature Gran # (Auto) 0.0 Sodium 133.9 L Potassium 4.42 Chloride 104.1 Carbon Dioxide 21.0 L Anion Gap 13.22 BUN 29.4 H Creatinine 1.57 H Estimated GFR (MDRD) 34.00 BUN/Creatinine Ratio 18.72 Glucose 294.7 H D Calcium 8.87 Total Bilirubin 0.59 AST 32.6 ALT 17.0 Alkaline Phosphatase 135.0 H D C-Reactive Prot, Quant 13 H Total Protein 7.15 Albumin 3.76 Globulin 3.39 Albumin/Globulin Ratio 1.10 Vancomycin Trough 12.907 SARS CoV-2 RNA Rapid ROBBY Negative Additional Comments Additional Comments: I have independently reviewed and interpreted the labs/EKGs/imaging ordered during this hospital stay. I have reviewed outside records that are available in our EMR that pertain to medical stay including imaging/notes/labs from previous visits. EXAM: MRI OF THE RIGHT ANKLE/HINDFOOT WITHOUT AND WITH INTRAVENOUS CONTRAST HISTORY: Diabetic ulcer along the dorsal foot. COMPARISON: Right foot radiographs 03/21/2024. TECHNIQUE: Routine multiplanar and multisequence MR imaging of the right ankle before and after the intravenous administration of 20 mL of Clariscan. The forefoot was incompletely imaged due to the protocol employed. FINDINGS: Status post transmetatarsal amputation. There is subcutaneous edema and enhancement along the distal to plantar aspect of the lower extremity stump consistent with cellulitis with soft tissue ulceration most extensive along the distal plantar aspect of the through fifth metatarsal remnants. Enhancing inflammatory phlegmon deep to the soft tissue wound with regions of granulation tissue and scarring without a definite drainable fluid collection/abscess. Ankylosis at the second through fifth tarsometatarsal joints and between the third through fifth metatarsal bases. There is marrow edema and enhancement with cortical irregularity involving the distal portion of the fourth and fifth metatarsal remnants consistent with reactive marrow edema and suspected early changes of acute osteomyelitis at the distal tip of the fourth and fifth metatarsal remnants. Low-level reactive marrow edema within the third metatarsal remnant. Muscle atrophy and intramuscular edema related to sequela denervation and/or myositis. Degenerative changes of the mid foot and ankle/hind-foot with small subchondral cyst within the talar dome. Marked Achilles tendinosis with regions of fusiform thickening and alternating regions of thinning/attenuation which could represent sequela of postoperative change/Z plasty and/or chronic-appearing partial- thickness tear at that site with most pronounced thinning and a position 6.0 cm proximal to the level of the calcaneal attachment. No fluid gap at that level. Undulation of the fibers. The anterior extensor tendons are intact. Mild posterior tibial tendinosis and tenosynovitis. Flexor digitorum and flexor hallicus longus tendons are intact. Marked peroneus brevis tendinosis with partial-thickness/split tear of the tendon and minimal tenosynovitis. Peroneus longus tendon is intact. Intact supporting ligaments of the syndesmosis. Chronic sprains with scarring of the anterior/posterior talofibular and calcaneofibular ligaments as well as the deltoid ligament. Small joint effusions of the ankle/hind-foot nonspecific without reactive marrow edema or erosive change. No enhancing soft tissue mass or enhancing marrow lesion. IMPRESSION: Status post transmetatarsal amputation. Cellulitis and soft tissue ulceration along the plantar to distal aspect of the stump most pronounced at the level of the fourth and fifth metatarsal remnants. Inflammatory phlegmon without drainable abscess. Reactive marrow edema along the distal third through fifth metatarsal remnants deep to the soft tissue ulcer. Very early changes of acute osteomyelitis are not excluded at the distal tip of the fourth and fifth metatarsal remnants and follow-up imaging could be considered. Marked Achilles tendinosis with postoperative change and/or chronic partial- thickness tear as detailed above. Additional chronic findings as described. Active Medications Active Medications: Medications Generic Name Dose Route Start Last Admin Trade Name Freq PRN Reason Stop Dose Admin Acetaminophen 650 mg 03/21/24 13:34 Acetaminophen 325 Mg Tablet PO Q4H PRN Mild Pain Aspirin 81 mg 03/22/24 09:00 03/22/24 08:11 Aspirin 81 Mg Tablet. PO 81 mg DAILYWM2 DARYA Administration Atorvastatin Calcium 80 mg 03/22/24 09:00 03/22/24 08:12 Atorvastatin Calcium 20 Mg Tablet PO 80 mg DAILY DARYA Administration Desvenlafaxine Succinate 50 mg 03/22/24 09:00 03/22/24 08:12 Desvenlafaxine Succinate 50 Mg Tab.Er.24h PO 50 mg DAILY DARYA Administration Empagliflozin 25 mg 03/22/24 09:00 03/22/24 08:11 Empagliflozin 10 Mg Tablet PO 25 mg DAILY DARYA Administration Gabapentin 600 mg 03/22/24 13:00 03/22/24 12:47 Gabapentin 300 Mg Capsule PO 600 mg Q8HR DARYA Administration Lactated Ringer's 1,000 mls @ 100 mls/hr 03/21/24 14:00 03/22/24 06:13 Lactated Ringers IV 100 mls/hr .Q10H DARYA Administration CEFEPIME 2 GM/D5W 2 gm in 50 mls @ 100 mls/hr 03/21/24 15:30 03/22/24 12:47 Maxipime 2 Gm/50 Ml D5w IV 03/24/24 15:29 100 mls/hr Q12HR DARYA Administration VANCOMYCIN/WATER FOR INJ (PEG) 1.25 gm in 250 mls @ 250 mls/hr 03/22/24 09:00 Vancomycin 1.25 Gm/250 Ml Bag IV 03/25/24 08:59 DAILY DARYA Insulin Glargine 70 unit 03/21/24 23:00 03/21/24 23:28 Insulin Glargine,Hum.Rec.Anlog 100 Units/Ml SUBCUT 70 unit BEDTIME DARYA Administration Insulin Human Lispro 0 unit 03/21/24 13:37 03/21/24 21:22 Insulin Lispro 100 Unit/Ml Vial (3 Ml) SUBCUT 7 unit PRN PRN Administration Hyperglycemia Protocol Levothyroxine Sodium 200 mcg 03/22/24 09:00 03/22/24 08:12 Levothyroxine Sodium 100 Mcg Tablet PO 200 mcg QDAC2 DARYA Administration Lisinopril 10 mg 03/22/24 09:00 03/22/24 08:12 Lisinopril 10 Mg Tablet PO 10 mg DAILY DARYA Administration Metoprolol Tartrate 50 mg 03/21/24 23:00 03/22/24 08:11 Metoprolol Tartrate 50 Mg Tablet PO 50 mg BID DARYA Administration Ondansetron HCl 4 mg 03/21/24 13:34 Ondansetron Hcl/Pf 4 Mg/2 Ml Sdv IVP Q6H PRN Nausea / Vomiting Prazosin HCl 1 mg 03/21/24 23:00 03/21/24 23:27 Prazosin Hcl 1 Mg Capsule PO 1 mg BEDTIME DARYA Administration Ropinirole HCl 1 mg 03/22/24 21:00 Ropinirole Hcl 1 Mg Tablet PO BEDTIME DARYA Plan Plan: 1. LEWIS, stage I - Mildly improved, Continue fluids today 2. Near syncopal event - In setting of dehydration, hypotension, and during debridement procedure. Tele. Will check orthostatics once BP is improved consistently. Could've had a vasovagal event during procedure. 3. Diabetic foot wound, stage II-III following debridement today - Wound culture from the clinic pending but showing gram positive cocci. Recent MRSA infection of a different wound. Cont cefepime and vanc. MRI showing swelling and cellulitis, cannot r/o an early osteo. Spoke with Dr. Elder's office, Afshan Cortez NP. She was happy to see patient on Monday however patient states they don't take her insurance. This was confirmed with their office. Will see if Dr. Sweeney, transportation maintenance worker in [place] can see her. Pt thinks she's seen him before. Awaiting a call back from him. 4. DMT2, insulin dependent - Diabetic diet, cont home meds, hold metformin, accuchecks achs, humalog sliding scale 5. Hypertension - Hold antihypertensives for now 6. Hyperlipidemia - Cont home meds 7. Hypothyroidism - Cont home meds 8. Restless legs syndrome - Cont home meds Dispo: possible dc tomorrow DVT: Lovenox Update: spoke with Dr. Sweeney who is happy to follow up with patient next week. Referral sent. He accepts her insurance. Review Statement Review Statement: I have personally discussed and reviewed the patient's visit/currently labs/imaging/decision making with Dr. Smith, my supervising attending. Greater that 50 minutes spent with patient, 50% of the time spent with this patient was devoted to counseling and coordination of care.
[2024-03-22] MEDS: VANCOMYCIN 1.25 GM/250 ML BAG 1.25 GM/250 ML BAG IV SCH (14:10)
[2024-03-22] MEDS: LOVENOX SUBCUT SCH (15:33)
[2024-03-22] MEDS: REQUIP PO SCH (20:49)
[2024-03-23 05:19] LABS: BASOPHILS % (AUTO) 0.3 % (0.0-3.0); EOSINOPHILS # (AUTO) 0.1 K/ul (0.0-0.7); HEMATOCRIT 32.4 % (37.0-47.0); HEMOGLOBIN 10.3 g/dl (12.0-16.0); IMMATURE GRANULOCYTE % (AUTO) 0.3 % (0.0-5.0); LYMPHOCYTES # (AUTO) 2.6 K/uL (0.60-3.4); LYMPHOCYTES % (AUTO) 43.7 (10.0-50.0); MEAN CORPUSCULAR HEMOGLOBIN 26.4 pg (27.0-31.0); MEAN CORPUSCULAR HGB CONC 31.8 (31.8-35.4); MEAN CORPUSCULAR VOLUME 83.1 fl (81.0-99.0); MONOCYTES # (AUTO) 0.4 K/uL (0.4-2.0); MONOCYTES % (AUTO) 5.8 (0-10); NEUTROPHILS # (AUTO) 2.9 K/ul (2.0-6.9); NEUTROPHILS % (AUTO) 47.9 % (42.2-75.2); PLATELET COUNT 235 10^3/uL (140-440); RDW COEFFICIENT OF VARIATION 14.6 % (11.6-14.8); WHITE BLOOD COUNT 6.04 K/ul (4.6-10.2)
[2024-03-23 05:33] VITALS: RESP 16
[2024-03-23 05:35] LABS: ALANINE AMINOTRANSFERASE 17.5 U/L (0-35); ALBUMIN 3.88 g/dL (3.5-5.0); ALKALINE PHOSPHATASE 127.3 U/L (38-126); ASPARTATE AMINO TRANSFERASE 32.7 U/L (14-36); BILIRUBIN,TOTAL 0.49 mg/dL (0.2-1.3); BLOOD UREA NITROGEN 24.6 mg/dL (7-17); CALCIUM 9.31 mg/dL (8.4-10.2); CARBON DIOXIDE 22.4 mmol/L (22-30.0); CHLORIDE 106.7 mmol/L (98-107); CREATININE 1.19 mg/dL (0.60-1.30); GLUCOSE 167.9 mg/dL (74-106); POTASSIUM 4.56 mmol/L (3.5-5.1); TOTAL PROTEIN 7.29 g/dL (6.3-8.2)
[2024-03-23] MEDS: VANCOMYCIN 1.5 GRAM/300 ML PREMIX 1.5 GM/300 ML BAG IV SCH (09:46)
[2024-03-23 10:09] VITALS: BP 119/75; TEMP 97.7
--- NOTE | 2024-03-23 10:17 | DCSUM ---
Admission Date Admission Date: 03/21/24 Discharge Date Discharge Date: 03/23/24 Admission Diagnosis Admission Diagnosis: 1. LEWIS, stage I 2. Near syncopal event 3. Diabetic foot wound, stage II-III following debridement Discharge Diagnosis Discharge Diagnosis: 1. LEWIS, stage I - resolved 2. Near syncopal event with hypotension - resolved 3. Diabetic foot wound, stage II-III following debridement with questionable early osteomyelitis and MRSA infection 4. DMT2, insulin dependent 5. Hypertension - Hold antihypertensives for now 6. Hyperlipidemia - Cont home meds 7. Hypothyroidism - Cont home meds 8. Restless legs syndrome - Cont home meds 9. Medical noncompliance Hospital Provider Hospital Provider: RK DOMINGUEZ PA-C, [facility] Primary Care Physician Primary Care Physician: JUAN MORENO Summary of History and Physical Summary of History and Physical: Patient is a 53 year old female with pmhx of DMT2, diabetic foot wound, CAD, hx of meth use, hyperlipidemia, anemia, restless legs syndrome, thyroid disorder, CARIN, who was in wound care clinic getting her diabetic wound debrided when she had a syncopal/near syncopal episode. Patient initially had a normal BP but was found to be hypotensive. In the ER patient was noted to have elevated Cr and BUN from baseline. BP improved with fluids. Pt at baseline. Other labs unremarkable except mildly elevated wbc count. X ray of foot was negative for acute findings. Per wound care clinic, patient hadn't been to clinic in past few weeks due to the provider being out and then patient canceled last week. Wound care instructions obtained from the clinic. They did send for a culture today. Hospital Course Subjective: Patient's blood pressure improved with fluids. Thought she may have had a vasovagal event during debridement. However after home BP meds were restarted, patient was hypotensive again. She was asymptomatic this time. This resolved with fluids and BP meds have been held since. Advised to f/u with pcp regarding restarting outpatient. LEWIS resolved. MRI could not rule out early osteomyelitis of right foot. Pt states she follows with Dr. Elder in [place], however they cannot accept her insurance at this time. She is willing to see Dr. Sweeney in [place], states she thinks she's seen him in the past. Spoke with him and he is agreeable to see her early this coming week, his office will call her with apt. Her wound culture came back MRSA sensitive to levaquin. Will send two weeks of levaquin due to questionable early osteo as well. Cont f/u with Dr. Sweeney next week to reevaluate plan. Patient agrees to plan of care. Appearance: No Apparent Distress and Alert HEENT: MMM and Supple CVS: No Murmur Abdomen: Soft, Non-Tender and No Distention Respiratory: No Accessory Muscle Use Extremities: No Edema Additional Findings: Right foot - s/p toe amputations. Dorsal foot with diabetic foot ulcer, stage II-III, irregularly shaped following debridement on 03/21. No significant erythema or swelling surrouding wound. Vital Signs: Most Recent Vital Signs Temperature 97.7 F 03/23/24 10:00 Temperature Source Temporal Artery Scan 03/23/24 10:00 Temperature Source Oral 03/21/24 12:17 Pulse Rate 73 03/23/24 10:00 Respiratory Rate 16 03/23/24 10:00 Blood Pressure 119/75 03/23/24 10:00 Blood Pressure Mean 89 03/23/24 10:00 Blood Pressure Left Arm 85/50 03/21/24 15:43 Blood Pressure Location Right Arm 03/23/24 10:00 Blood Pressure Position Supine 03/23/24 10:00 O2 Sat by Pulse Oximetry 98 03/23/24 10:00 Oxygen Delivery Method Room Air 03/23/24 10:00 Height 5 ft 3.5 in 03/21/24 15:43 Weight 211 lb 03/21/24 15:43 Telemetry Type Remote Telemetry 03/22/24 07:00 Telemetry Monitoring Continues 03/22/24 07:00 Telemetry Heart Rate 69 03/22/24 07:00 Telemetry SPO2 100 01/28/22 11:25 EKG IA Interval 0.14 03/22/24 07:00 EKG QRS Interval 0.07 03/22/24 07:00 Telemetry Strip Reading Refusing tele 03/23/24 07:00 Imaging: EXAM: RIGHT FOOT 3 VIEWS HISTORY: Diabetic ulcer. COMPARISON: Right foot radiographs from 05/18/2023 FINDINGS: No acute fracture or dislocation. Chronic transmetatarsal amputations are unchanged. There is extensive ankylosis of the tarsal- metatarsal joint spaces and intermetatarsal joint spaces. No bone destruction is appreciated. No soft tissue gas. IMPRESSION: 1. No acute fracture, dislocation or radiographic evidence of osteomyelitis. Given the delayed appearance of osteomyelitis on radiographs, correlation with MRI would be helpful. 2. Transmetatarsal amputations and bony ankylosis as detailed. EXAM: MRI OF THE RIGHT ANKLE/HINDFOOT WITHOUT AND WITH INTRAVENOUS CONTRAST HISTORY: Diabetic ulcer along the dorsal foot. COMPARISON: Right foot radiographs 03/21/2024. TECHNIQUE: Routine multiplanar and multisequence MR imaging of the right ankle before and after the intravenous administration of 20 mL of Clariscan. The forefoot was incompletely imaged due to the protocol employed. FINDINGS: Status post transmetatarsal amputation. There is subcutaneous edema and enhancement along the distal to plantar aspect of the lower extremity stump consistent with cellulitis with soft tissue ulceration most extensive along the distal plantar aspect of the through fifth metatarsal remnants. Enhancing inflammatory phlegmon deep to the soft tissue wound with regions of granulation tissue and scarring without a definite drainable fluid collection/abscess. Ankylosis at the second through fifth tarsometatarsal joints and between the third through fifth metatarsal bases. There is marrow edema and enhancement with cortical irregularity involving the distal portion of the fourth and fifth metatarsal remnants consistent with reactive marrow edema and suspected early changes of acute osteomyelitis at the distal tip of the fourth and fifth metatarsal remnants. Low-level reactive marrow edema within the third met atarsal remnant. Muscle atrophy and intramuscular edema related to sequela denervation and/or myositis. Degenerative changes of the mid foot and ankle/hind-foot with small subchondral cyst within the talar dome. Marked Achilles tendinosis with regions of fusiform thickening and alternating regions of thinning/attenuation which could represent sequela of postoperative change/Z plasty and/or chronic-appearing partial- thickness tear at that site with most pronounced thinning and a position 6.0 cm proximal to the level of the calcaneal attachment. No fluid gap at that level. Undulation of the fibers. The anterior extensor tendons are intact. Mild posterior tibial tendinosis and tenosynovitis. Flexor digitorum and flexor hallicus longus tendons are intact. Marked peroneus brevis tendinosis with partial-thickness/split tear of the tendon and minimal tenosynovitis. Peroneus longus tendon is intact. Intact supporting ligaments of the syndesmosis. Chronic sprains with scarring of the anterior/posterior talofibular and calcaneofibular ligaments as well as the deltoid ligament. Small joint effusions of the ankle/hind-foot nonspecific without reactive marrow edema or erosive change. No enhancing soft tissue mass or enhancing marrow lesion. IMPRESSION: Status post transmetatarsal amputation. Cellulitis and soft tissue ulceration along the plantar to distal aspect of the stump most pronounced at the level of the fourth and fifth metatarsal remnants. Inflammatory phlegmon without drainable abscess. Reactive marrow edema along the distal third through fifth metatarsal remnants deep to the soft tissue ulcer. Very early changes of acute osteomyelitis are not excluded at the distal tip of the fourth and fifth metatarsal remnants and follow-up imaging could be considered. Marked Achilles tendinosis with postoperative change and/or chronic partial- thickness tear as detailed above. Additional chronic findings as described. Lab Results Last 24 Hours: 03/23/24 03/22/24 05:02 18:00 WBC 6.04 RBC 3.90 L Hgb 10.3 L Hct 32.4 L MCV 83.1 MCH 26.4 L MCHC 31.8 RDW Coeff of Logan 14.6 Plt Count 235 Immature Gran % (Auto) 0.3 Neut % (Auto) 47.9 Lymph % (Auto) 43.7 [place] % (Auto) 5.8 Eos % (Auto) 2.0 Baso % (Auto) 0.3 Neut # (Auto) 2.9 Lymph # (Auto) 2.6 [place] # (Auto) 0.4 Eos # (Auto) 0.1 Baso # (Auto) 0.0 Immature Gran # (Auto) 0.0 Sodium 138.0 Potassium 4.56 Chloride 106.7 Carbon Dioxide 22.4 Anion Gap 13.46 BUN 24.6 H Creatinine 1.19 Estimated GFR (MDRD) 47.00 BUN/Creatinine Ratio 20.67 Glucose 167.9 H D 428.5 H D Calcium 9.31 Total Bilirubin 0.49 AST 32.7 ALT 17.5 Alkaline Phosphatase 127.3 H Total Protein 7.29 Albumin 3.88 Globulin 3.41 Albumin/Globulin Ratio 1.13 Vancomycin Trough 16.901 Discharge Instructions Discharge Planning: Discharge Planning > [address] Mingo Smith. Discharge Medications: Medications at Discharge (Home Meds & RX) Discharge Plan Discharge Discharge Orders: Discharge Patient (ONCE); Ordered 03/23/24 Ordered By: RK DOMINGUEZ Activity Restrictions/Additional Instructions: DISCHARGE TO HOME DX: DEHYDRATION, DIABETIC FOOT ULCER WITH QUESTIONABLE EARLY OSTEOMYELITIS + FOR MRSA PHARMACY: [facility] UNLESS TOLD OTHERWISE BY DR. SWEENEY WOUND DRESSINGS PER WOUND CARE FOLLOW UP WITH PCP STOP YOUR METOPROLOL AND LISINOPRIL SINCE YOUR BLOOD PRESSURE HAS BEEN LOW, FOLLOW UP WITH YOUR PCP YOU HAVE BEEN REFERRED TO DR. SWEENEY IN [facility] FOR YOUR FOOT. THEY WILL BE IN CONTACT WITH YOU TO SCHEDULE AN APPOINTMENT. SHOULD YOU HAVE ANY QUESTIONS OR NEED TO REACH OUT TO THEIR OFFICE, THEY CAN BE CONTACTED AT [phone]. Patient Disposition: HOME SELF-CARE Prescriptions: New levofloxacin 750 mg tablet 750 mg PO DAILY 14 Days Qty: 14 0RF Continued pen needle, diabetic [TRUEplus Pen Needle] 31 gauge x 3/16" needle See Rx Instructions .ROUTE .COMPLEX Qty: 100 0RF Dose Instruction: USE DIRECTED TWICE DAILY WITH BYELVA (MUST LAST 50 DAYS) Rx Instructions: USE DIRECTED TWICE DAILY WITH RAVEN (MUST LAST 50 DAYS) insulin lispro [Humalog U-100 Insulin] 100 unit/mL solution See Rx Instructions .ROUTE .COMPLEX Qty: 10 3RF Dose Instruction: INJECT 10 UNITS SUBCUTANEOUS THREE TIMES DAILY Rx Instructions: INJECT 10 UNITS SUBCUTANEOUS THREE TIMES DAILY insulin syringe-needle U-100 [BD Insulin Syringe Ultra-Fine] 1 mL 31 gauge x 5/16 syringe See Rx Instructions .ROUTE .COMPLEX Qty: 100 0RF Dose Instruction: USE DIRECTED THREE TIMES DAILY Rx Instructions: USE DIRECTED THREE TIMES DAILY atorvastatin 80 mg tablet 80 mg PO DAILY Rx Instructions: TAKE ONE TABLET DAILY metformin 1,000 mg tablet 1,000 mg PO BID Rx Instructions: TAKE ONE TABLET TWICE DAILY WITH MORNING AND EVENING MEAL GENERIC FOR GLUCOPHAGE aspirin 81 mg tablet,delayed release (DR/EC) 81 mg PO DAILY Patient Comments: TAKE 1 TABLET BY MOUTH EVERY DAY ropinirole 1 mg tablet 1 mg PO DAILY Patient Comments: TAKE 1 TABLET BY MOUTH AT BEDTIME meloxicam 7.5 mg tablet 7.5 mg PO DAILY Patient Comments: TAKE 1 TABLET BY MOUTH DAILY AFTER MEALS FOR PAIN dapagliflozin propanediol [Farxiga] 10 mg tablet 10 mg PO DAILY desvenlafaxine succinate 50 mg tablet extended release 24 hr 50 mg PO DAILY prazosin 1 mg capsule 1 mg PO BEDTIME gabapentin 300 mg capsule 600 mg PO Q8H ergocalciferol (vitamin D2) 1,250 mcg (50,000 unit) capsule 1,250 mcg PO WEEKLY Patient Comments: every Monday levothyroxine 200 mcg tablet 200 mcg PO QDAY polyethylene glycol 3350 [Miralax] 17 gram/dose powder 17 gm PO QDAY PRN (Reason: constipation) Qty: 119 0RF Discontinued lisinopril 10 mg tablet 10 mg PO DAILY Rx Instructions: TAKE ONE TABLET DAILY metoprolol tartrate 50 mg tablet 50 mg PO BID Rx Instructions: TAKE ONE TABLET TWICE DAILY WITH MEALS GENERIC FOR LOPRESSOR No Action (DME) blood-glucose meter Kit 1 [facility] [id number] Qty: 1 0RF Rx Instructions: Use to test blood sugars daily insulin glargine [Lantus U-100 Insulin] 100 unit/mL solution See Rx Instructions .ROUTE .COMPLEX Qty: 20 0RF Dose Instruction: INJECT 70 UNITS SUBCUTANEOUS AT BEDTIME Rx Instructions: INJECT 70 UNITS SUBCUTANEOUS AT BEDTIME (DME) lancets 33 gauge misc 1 ea [facility] TID Qty: 100 0RF Rx Instructions: As directed (DME) Blood Glucose Test Strip 1 [facility] TID Qty: 120 0RF Rx Instructions: As directed 4 x daily. (DME) blood-glucose meter Misc See Rx Instructions .ROUTE .MEDSUPPLY Qty: 1 0RF Rx Instructions: As directed Did you review [place] [employer] for ALL controlled substances?: Not Applicable Discussed opioids are addictive and Narcan is available by prescription or from pharmacy.: No Condition: Good Referrals: JUAN MORENO [Primary Care Provider] - 04/17/24 1:00 pm
[2024-03-23 10:46] VITALS: PULSE 72
== END 2024-03-23 12:15 | disposition home or self-care (01) ==
LOC: MEDSURG B 12:07 → ED 12:07 → MEDSURG B 15:36
PROVIDERS: ADMIT Hospitalist; ATTEND Physician Assistant
DX: Z79.4 Long term (current) use of insulin; E03.9 Hypothyroidism, unspecified; E78.5 Hyperlipidemia, unspecified; I10 Essential (primary) hypertension; Z79.899 Other long term (current) drug therapy; E86.0 Dehydration; S91.301A Unspecified open wound, right foot, initial encounter; B95.62 Methicillin resistant Staphylococcus aureus infection as the cause of diseases classified elsewhere; Z20.822 Contact with and (suspected) exposure to COVID-19; R55 Syncope and collapse; E11.00 Type 2 diabetes mellitus with hyperosmolarity without nonketotic hyperglycemic-hyperosmolar coma (NKHHC); E11.621 Type 2 diabetes mellitus with foot ulcer; I95.9 Hypotension, unspecified; Z89.421 Acquired absence of other right toe(s); Z91.199 Patient's noncompliance with other medical treatment and regimen due to unspecified reason; L97.512 Non-pressure chronic ulcer of other part of right foot with fat layer exposed; Z79.84 Long term (current) use of oral hypoglycemic drugs; G25.81 Restless legs syndrome; N17.9 Acute kidney failure, unspecified; Z51.81 Encounter for therapeutic drug level monitoring